=== PATIENT | male | born 1965 ===

== ENCOUNTER 2017-12-29 16:35 | Inpatient (IN) | payer SELFPAY ==
[2017-12-29] MEDS ORDERED: NORMODYNE IV ONE (16:55)
--- NOTE | 2017-12-29 16:57 | Emergency Department Report ---
HPI - General Time Seen by Provider: 12/29/17 16:54 - HPI HPI: 52-year-old male presents to the emergency department via EMS from home with altered mental status. His mother's bedside and says that he went out to [place] and when he drove back he was normal but shortly after coming home he passed out and has remained altered since. She says that he was not talking to herself or EMS. I am able to get him to open his eyes and he is able to say that it is 2018 but he otherwise keeps his eyes closed and is grunting. He does not have any past medical history but also apparently does not follow up with a primary care physician. He has not a smoker or alcohol drinker and mom denies any illicit drugs. ED Review of Systems ROS: Stated complaint: HIGH BLOOD SUGAR/NAUSEA/VOMITING Other details as noted in HPI Comment: Unobtainable due to pts medical conditions Physical Exam - Physical Exam Physical Exam: GENERAL: The patient is well-developed well-nourished. HENT: Normocephalic. Atraumatic. Patient has moist mucous membranes. EYES: Pupils equal reactive to light bilaterally. NECK: Supple. Trachea is midline. CHEST/LUNGS: Clear to auscultation. There is no respiratory distress noted. HEART/CARDIOVASCULAR: Regular. There is no tachycardia. There is no murmur. ABDOMEN: Abdomen is soft, nontender. Patient has normal bowel sounds. There is no abdominal distention. SKIN: Skin is warm and dry. NEURO: The patient is sleepy but does respond to some verbal and tactile stimuli. Once he is awake, he will follow some commands and is oriented to the date. However he immediately goes back to sleep if not continuously stimulated. GCS of 13. MUSCULOSKELETAL: There is no tenderness or deformity. There is no evidence of acute injury. ED Course - Reevaluation(s) Reevaluation #1: The patient was reevaluated multiple times. He has started to improvement in his mentation. He is still sleepy and ill-appearing but now has spontaneous eye opening. No facial asymmetry. No pronator drift. Patient is dealing with nausea and vomiting. Patient is asking for medication and something to drink but no apparent slurred speech. 12/30/17 01:02 ED Medical Decision Making - Lab Data Result diagrams: 12/29/17 17:14 12/29/17 17:14 - EKG Data -: EKG Interpreted by Me EKG shows normal: sinus rhythm, axis (left axis deviation), intervals, QRS complexes (Q waves to the inferior leads), ST-T waves Rate: normal - EKG Data Interpretation: other (sinus rhythm, left axis deviation, Q waves to the inferior leads) - Radiology Data Radiology results: report reviewed, image reviewed interpreted by me: Chest x-ray does not show any acute process. There are no pleural effusions, obvious pneumonia and there is no pneumothorax. EXAM: CT HEAD/BRAIN WO CON HISTORY: AMS TECHNIQUE: Noncontrast CT axial images of the brain. PRIORS: None. FINDINGS: No parenchymal mass, mass effect, hemorrhage, midline shift or hydrocephalus. No evidence of acute cortical infarct. No abnormal, extra-axial fluid or air collection. Mild, patchy low density in the periventricular and subcortical white matter is nonspecific, but may relate to chronic small vessel ischemic change. Osseous calvarium grossly intact. IMPRESSION: 1. No acute intracranial findings. 2. Chronic ischemic changes suspected. Transcribed By: [facility] Dictated By: RAVINDRA AREVALO MD Electronically Authenticated By: RAVINDRA AREVALO MD Signed Date/Time: 12/29/171806 PROCEDURE: CT ANGIO CHEST TECHNIQUE: Computerized tomographic angiography of the chest was performed after the IV injection of iodinated nonionic contrast including image processing. The image data was postprocessed using 2-dimensional multiplanar reformatted (MPR) and 3-dimensional (MIP and/or volume rendered) techniques. HISTORY: Syncope, coughing up red sputum / blood COMPARISON: No prior studies are available for comparison. FINDINGS: Heart and pericardium: Normal. Thoracic aorta: Normal. Pulmonary vasculature: Normal. Lymph nodes: No enlarged thoracic lymph nodes. Lungs: Normal. Pleural space: No effusion, thickening, or pneumothorax. Musculoskeletal structures: No significant abnormality. Upper abdominal structures: No significant abnormality. IMPRESSION: Unremarkable study Transcribed By: [facility] [place] Dictated By: EMMA WATKINS Electronically Authenticated By: EMMA WATKINS Signed Date/Time: 12/29/172024 - Medical Decision Making This patient came in mostly unresponsive after he had a syncopal episode at home , witnessed by his mother. When he came in to the emergency department he has a GCS of 12 or 13. There is no spontaneous eye opening and the patient is not following many commands but he is arousable and was able to give the year. A stat CT of the head was done that did not show any bleed, shift or mass or any other acute process. Upon one of his early reevaluation, the patient does show some improvement in his mentation. He began having spontaneous eye opening, asking for medication and something to drink. He was reevaluated neurologically and there was no slurred speech, facial asymmetry, pronator drift or any focal or lateralizing deficits seen. The patient also presented with very elevated blood pressure. He was given a dose of labetalol and hydralazine and his blood pressure came down to a more reasonable level. He had some low potassium so he was replaced with potassium chloride. The patient' s labs show a leukocytosis of about 24,000. This, combined with his hypothermia , was concerning for infection and the patient was treated empirically with Zosyn. The patient also has hyperglycemia with a blood sugar of 380. He was given some IV insulin. He has a lactic acidosis of 8 and then down to 6. A chest x-ray was done that does not show any pneumonia, pleural effusions, pneumothorax or focal consolidation. No source or focus of infection has been found. The patient will be admitted to the hospital for further evaluation and treatment and was accepted for admission by the hospitalist, Dr. Nolen. - Differential Diagnosis CVA, TIA, sepsis, pneumonia, MN, dysrhythmia Critical Care Time: No Critical care attestation.: If time is entered above; I have spent that time in minutes in the direct care of this critically ill patient, excluding procedure time. ED Disposition Clinical Impression: Hypokalemia, Hypertensive urgency, Hyperglycemia, Lactic acidosis Altered mental status Qualifiers: Altered mental status type: unspecified Qualified Code(s): R41.82 - Altered mental status, unspecified Leukocytosis Qualifiers: Leukocytosis type: unspecified Qualified Code(s): D72.829 - Elevated white blood cell count, unspecified Disposition: OP ADMIT IP TO THIS HOSP Is pt being admited?: Yes Condition: Fair Time of Disposition: 01:11
[2017-12-29] MEDS ORDERED: ZOFRAN ONE (16:59)
[2017-12-29 17:31] LABS: Mean Corpuscular HGB Conc 36 % (32-34); Mean Corpuscular Hemoglobin 32 pg (28-32); Mean Corpuscular Volume 87 fl (84-94); Platelet Count 354 K/mm3 (140-440); Red Blood Count 5.47 M/mm3 (3.65-5.03); Red Cell Distribution Width 12.8 % (13.2-15.2)
[2017-12-29 17:36] LABS: Hematocrit 47.6 % (35.5-45.6); Hemoglobin 17.2 gm/dl (11.8-15.2)
[2017-12-29 17:46] LABS: INR 0.99 (0.87-1.13)
[2017-12-29 17:47] LABS: Alanine Aminotransferase 16 units/L (7-56); Albumin 4.6 g/dL (3.9-5); BUN/Creatinine Ratio 16; Blood Urea Nitrogen 13 mg/dL (9-20); Calcium 10.1 mg/dL (8.4-10.2); Hemolysis Index 37
[2017-12-29] MEDS ORDERED: HumuLIN R IV ONE (17:54)
[2017-12-29] MEDS ORDERED: ZOFRAN IV ONE ×2 (18:05→20:20)
--- NOTE | 2017-12-29 18:08 | Cat Scan Report ---
FINAL REPORT EXAM: CT HEAD/BRAIN WO CON HISTORY: AMS TECHNIQUE: Noncontrast CT axial images of the brain. PRIORS: None. FINDINGS: No parenchymal mass, mass effect, hemorrhage, midline shift or hydrocephalus. No evidence of acute cortical infarct. No abnormal, extra-axial fluid or air collection. Mild, patchy low density in the periventricular and subcortical white matter is nonspecific, but may relate to chronic small vessel ischemic change. Osseous calvarium grossly intact. IMPRESSION: 1. No acute intracranial findings. 2. Chronic ischemic changes suspected.
[2017-12-29 18:17] LABS: Basophils % (Manual) 0 % (0.0-1.8); RBC Morphology Normal; Total Cells Counted 100
[2017-12-29] MEDS: KCL 10MEQ/100ML 10 MEQ/100 ML BAG IV SCH ×3 (18:29→21:18)
[2017-12-29] MEDS ORDERED: APRESOLINE IV ONE (18:56)
[2017-12-29 19:40] LABS: Bilirubin,Urine NEG (Negative); Blood,Urine NEG (Negative); Color,Urine Straw (Yellow); Mucus,Urine FEW /HPF; Protein,Urine <15 mg/dL mg/dL (Negative); Urobilinogen,Urine < 2.0 mg/dL (<2.0); WBC,Urine < 1.0 /HPF (0.0-6.0)
[2017-12-29 19:48] LABS: Amphetamine Screen,Urine PRESUMPTIVE NEGATIVE; Benzodiazepines Screen,Urine PRESUMPTIVE NEGATIVE; Cannabinoid Screen,Urine PRESUMPTIVE NEGATIVE; Cocaine Screen,Urine PRESUMPTIVE NEGATIVE; Methadone Screen,Urine PRESUMPTIVE NEGATIVE; Opiate Screen,Urine PRESUMPTIVE NEGATIVE
--- NOTE | 2017-12-29 20:26 | Cat Scan Report ---
FINAL REPORT PROCEDURE: CT ANGIO CHEST TECHNIQUE: Computerized tomographic angiography of the chest was performed after the IV injection of iodinated nonionic contrast including image processing. The image data was postprocessed using 2-dimensional multiplanar reformatted (MPR) and 3-dimensional (MIP and/or volume rendered) techniques. HISTORY: Syncope, coughing up red sputum / blood COMPARISON: No prior studies are available for comparison. FINDINGS: Heart and pericardium: Normal. Thoracic aorta: Normal. Pulmonary vasculature: Normal. Lymph nodes: No enlarged thoracic lymph nodes. Lungs: Normal. Pleural space: No effusion, thickening, or pneumothorax. Musculoskeletal structures: No significant abnormality. Upper abdominal structures: No significant abnormality. IMPRESSION: Unremarkable study
--- NOTE | 2017-12-29 20:27 | XRay Report ---
FINAL REPORT EXAM: XR CHEST 1V AP HISTORY: Altered Mental Status TECHNIQUE: Single, portable chest x-ray. PRIORS: None. FINDINGS: Cardiac and mediastinal silhouette within normal limits. Lungs are normally expanded. No significant vascular congestion. No focal consolidation or apparent pneumothorax. Bony thorax grossly unremarkable. IMPRESSION: 1. No acute findings.
[2017-12-29] MEDS ORDERED: ZOSYN/NS 4.5GM/100ML 4.5 GM/100 ML VIAL IV SCH (21:00)
[2017-12-29] MEDS ORDERED: SODIUM CHLORIDE FLUSH SYRINGE 10 ML IV PRN (23:00)
[2017-12-29] MEDS ORDERED: NACL 0.45% 1000 ML 1,000 ML IV SCH (23:00)
[2017-12-29] MEDS ORDERED: D50W (25GM) Syringe IV PRN (23:00)
--- NOTE | 2017-12-29 23:03 | History and Physical Report ---
History of Present Illness Date of examination: 12/29/17 History of present illness: 52-year-old male with no medical problems, who was not seen a physician in a long time comes emergency room with complaints of dizziness. States he fell today, there was no loss of consciousness Review of systems Constitutional: no weight loss, chills, fever Ears, eyes, nose, mouth and throat: no nasal congestion, no nasal discharge, no sinus pressure, no vision change, no red eye. Neck: No neck pain or rigidity. Cardiovascular: no chest pain, palpitations Respiratory: no cough, shortness of breath Gastrointestinal: no abdominal pain hematochezia Genitourinary : no frequency , no hematuria Musculoskeletal: no joint swelling or muscle ache Integumentary: no rash, no pruritis Neurological: no parathesias, no numbness, no focal weakness Endocrine: no cold or heat intolerance, no polyuria or polydipsia Hematologic/Lymphatic: no easy bruising, no easy bleeding, no gland swelling Allergic/Immunologic: no urticaria, no angioedema. PAST MEDICAL HISTORY: None PAST SURGICAL HISTORY: None SOCIAL HISTORY: No alcohol, no drugs, tobacco FAMILY HISTORY: Hypertension Medications and Allergies Allergies Allergy/AdvReac Type Severity Reaction Status Date / Time No Known Allergies Allergy Unverified 12/29/17 17:54 Active Meds: Active Medications Acetaminophen (Tylenol) 650 mg PO Q4H PRN PRN Reason: Pain MILD(1-3)/Fever >100.5/WEAVER Dextrose (D50w (25gm) Syringe) 50 ml IV PRN PRN PRN Reason: Hypoglycemia Enoxaparin Sodium (Lovenox) 30 mg SUB-Q QDAY MENDEL Hydralazine HCl (Apresoline) 5 mg IV Q6HR PRN PRN Reason: Hypertension Piperacillin Sod/Tazobactam Sod (Zosyn/Ns 4.5gm/100ml) 4.5 gm in 100 mls @ 200 mls/hr IV ONCE MENDEL Sodium Chloride (Nacl 0.45% 1000 Ml) 1,000 mls @ 125 mls/hr IV DIRECT MENDEL Insulin Human Lispro (Humalog) 0 unit SUB-Q ACHS MENDEL; Protocol Ondansetron HCl (Zofran) 4 mg IV Q4H PRN PRN Reason: Nausea And Vomiting Sodium Chloride (Sodium Chloride Flush Syringe 10 Ml) 10 ml IV BID MENDEL Sodium Chloride (Sodium Chloride Flush Syringe 10 Ml) 10 ml IV PRN PRN PRN Reason: LINE FLUSH Exam - Physical Exam Narrative exam: Gen. appearance: Patient lying in bed, no apparent distress HEENT: Normocephalic, atraumatic, pupils equally round and reactive to light, extraocular movement intact, and no sclericterus,. No JVD or thyromegaly or nodule,neck supple, no carotid bruit ,mucous membranes moist, no exudate or erythema Heart: S1, S2, regular rate and rhythm Lungs: Clear bilaterally, breathing comfortable Abdomen: Positive bowel sounds, non-tender, nondistended, no organomegaly Extremity:no edema cyanosis, clubbing Skin: no rash, dry, warm Neuro: Oriented 3, cranial nerves II-12 intact, speech is fluent, motor and sensory intact - Constitutional Vitals: Temp Pulse Resp BP Pulse Ox 97.9 F 85 26 H 171/91 96 12/29/17 22:15 12/29/17 22:30 12/29/17 22:30 12/29/17 22:30 12/29/17 22:30 Results - Labs CBC & Chem 7: 12/29/17 17:14 12/29/17 17:14 Labs: Abnormal lab results 12/29/17 12/29/17 12/29/17 Range/Units 17:14 17:14 17:14 WBC 23.9 H (4.5-11.0) K/mm3 RBC 5.47 H (3.65-5.03) M/mm3 Hgb 17.2 H (11.8-15.2) gm/dl Hct 47.6 H (35.5-45.6) % MCHC 36 H (32-34) % RDW 12.8 L (13.2-15.2) % Seg Neutrophils # Man 16.7 H (1.8-7.7) K/mm3 Lymphocytes # (Manual) 5.7 H (1.2-5.4) K/mm3 Monocytes # (Manual) 1.2 H (0.0-0.8) K/mm3 APTT 20.0 L (24.2-36.6) Sec. Sodium (137-145) mmol/L Potassium (3.6-5.0) mmol/L Chloride (98-107) mmol/L Carbon Dioxide (22-30) mmol/L Glucose (75-100) mg/dL Lactic Acid 8.50 H* (0.7-2.0) mmol/L Total Bilirubin (0.1-1.2) mg/dL Ammonia (25-60) umol/L Salicylates (2.8-20.0) mg/dL Acetaminophen (10.0-30.0) ug/mL 12/29/17 12/29/17 12/29/17 Range/Units 17:14 17:14 17:14 WBC (4.5-11.0) K/mm3 RBC (3.65-5.03) M/mm3 Hgb (11.8-15.2) gm/dl Hct (35.5-45.6) % MCHC (32-34) % RDW (13.2-15.2) % Seg Neutrophils # Man (1.8-7.7) K/mm3 Lymphocytes # (Manual) (1.2-5.4) K/mm3 Monocytes # (Manual) (0.0-0.8) K/mm3 APTT (24.2-36.6) Sec. Sodium 134 L (137-145) mmol/L Potassium 3.1 L (3.6-5.0) mmol/L Chloride 92.7 L (98-107) mmol/L Carbon Dioxide 14 L (22-30) mmol/L Glucose 384 H (75-100) mg/dL Lactic Acid (0.7-2.0) mmol/L Total Bilirubin 1.40 H (0.1-1.2) mg/dL Ammonia 21.0 L (25-60) umol/L Salicylates < 0.3 L (2.8-20.0) mg/dL Acetaminophen (10.0-30.0) ug/mL 12/29/17 12/29/17 Range/Units 17:14 18:01 WBC (4.5-11.0) K/mm3 RBC (3.65-5.03) M/mm3 Hgb (11.8-15.2) gm/dl Hct (35.5-45.6) % MCHC (32-34) % RDW (13.2-15.2) % Seg Neutrophils # Man (1.8-7.7) K/mm3 Lymphocytes # (Manual) (1.2-5.4) K/mm3 Monocytes # (Manual) (0.0-0.8) K/mm3 APTT (24.2-36.6) Sec. Sodium (137-145) mmol/L Potassium (3.6-5.0) mmol/L Chloride (98-107) mmol/L Carbon Dioxide (22-30) mmol/L Glucose (75-100) mg/dL Lactic Acid 6.10 H* (0.7-2.0) mmol/L Total Bilirubin (0.1-1.2) mg/dL Ammonia (25-60) umol/L Salicylates (2.8-20.0) mg/dL Acetaminophen < 5.0 L (10.0-30.0) ug/mL - Imaging and Cardiology Chest x-ray: image reviewed CT scan - chest: report reviewed CT Scan - head: report reviewed Assessment and Plan Assessment SIRS New-onset diabetes New-onset hypertension Plan Start IV fluid, and antibiotic check fingersticks initiate insulin sliding scale Check hemoglobin A1c, lipid panel Start IV hydralazine for blood pressure control DVT prophylaxis
[2017-12-30] MEDS: ZOFRAN IV PRN ×2 (01:02→10:26)
[2017-12-30 03:06] LABS: Chol/HDL Ratio 3.62 %
[2017-12-30] MEDS ORDERED: K-DUR PO ONE (03:21)
[2017-12-30] MEDS: TYLENOL PO PRN ×5 (03:28→22:41)
[2017-12-30] MEDS: ZOSYN/NS 4.5GM/100ML 4.5 GM/100 ML VIAL IV SCH ×2 (05:52→15:21)
[2017-12-30 06:37] LABS: Hemoglobin 16.7 gm/dl (11.8-15.2); Mean Corpuscular HGB Conc 33 % (32-34); Mean Corpuscular Hemoglobin 29 pg (28-32); Mean Corpuscular Volume 88 fl (84-94); Platelet Count 246 K/mm3 (140-440); Red Blood Count 5.68 M/mm3 (3.65-5.03); Red Cell Distribution Width 13.3 % (13.2-15.2)
[2017-12-30 06:48] LABS: BUN/Creatinine Ratio 12; Blood Urea Nitrogen 11 mg/dL (9-20); Hemolysis Index 6
[2017-12-30] MEDS: HumaLOG SUB-Q SCH ×4 (08:00→22:42)
--- NOTE | 2017-12-30 08:43 | Progress Note ---
Assessment and Plan Assessment and plan: 52-year-old male with no significant past medical history presented to the emergency department with complaints of passed out While in the ED BP was checked and he was in hypertensive urgency, new onset diabetes mellitus with hyperglycemia. DKA - Patient was admitted to the floor - I'm going to transfer him to ICU, and will restart managing according to DKA Protocol - In the mean time patient will be given 3 Litres of IV bolus and 15 units of novolog IV, check BMP Hypertensive urgency - Given labetalol and hydralazine - Blood pressure is controlled now and I'll start him on amlodipine Hyperlipidemia - Going to start him on Lipitor SIRS - on empiric IV zosyn DVT prophylaxis - On lovenox Disposition - Continue inpatient care The high probability of a clinically significant, sudden or life threatening deterioration of the [endocrine, cardiovascular] system(s) required my full and direct attention, intervention and personal management. The aggregate critical care time was [35] minutes. This time is in addition to time spent performing reported procedures but includes the following: [x] Data Review and interpretation [x] Patient assessment and monitoring of vital signs [x] Documentation [x] Medication orders and management History Interval history: Patient was seen and evaluated this morning, Patient was alert and oriented. Patient said he is thirsty. Hospitalist Physical - Physical exam Narrative exam: Not in cardiopulmonary distress. The patient appeared well nourished and normally developed. Vital signs as documented. Head exam is unremarkable. No scleral icterus . Neck is without jugular venous distension, thyromegaly, or carotid bruits. Lungs are clear to auscultation. Cardiac exam reveals regular rate and Rhythm. First and second heart sounds normal. No murmurs, rubs or gallops. Abdominal exam reveals normal bowel sounds, no masses, no organomegaly and no aortic enlargement. Extremities are nonedematous and both femoral and pedal pulses are normal. GLAZE SPRAYER: Alert and oriented 3. No focal weakness. - Constitutional Vitals: Temp Pulse Resp BP Pulse Ox 98.9 F 115 H 18 147/84 98 12/30/17 05:45 12/30/17 05:45 12/30/17 05:45 12/30/17 05:45 12/30/17 05:45 Results - Labs CBC & Chem 7: 12/30/17 06:01 12/30/17 12:35 Labs: Laboratory Last Values WBC 25.0 K/mm3 (4.5-11.0) H 12/30/17 06:01 RBC 5.68 M/mm3 (3.65-5.03) H 12/30/17 06:01 Hgb 16.7 gm/dl (11.8-15.2) H 12/30/17 06:01 Hct 50.0 % (35.5-45.6) H 12/30/17 06:01 MCV 88 fl (84-94) 12/30/17 06:01 MCH 29 pg (28-32) 12/30/17 06:01 MCHC 33 % (32-34) 12/30/17 06:01 RDW 13.3 % (13.2-15.2) 12/30/17 06:01 Plt Count 246 K/mm3 (140-440) 12/30/17 06:01 Lymph # Furniture Associate 12/29/17 17:14 Add Manual Diff Complete 12/29/17 17:14 Total Counted 100 12/29/17 17:14 Seg Neuts % (Manual) 70.0 % (40.0-70.0) 12/29/17 17:14 Band Neutrophils % 0 % 12/29/17 17:14 Lymphocytes % (Manual) 24.0 % (13.4-35.0) 12/29/17 17:14 Reactive Lymphs % (Man) 0 % 12/29/17 17:14 Monocytes % (Manual) 5.0 % (0.0-7.3) 12/29/17 17:14 Eosinophils % (Manual) 1.0 % (0.0-4.3) 12/29/17 17:14 Basophils % (Manual) 0 % (0.0-1.8) 12/29/17 17:14 Metamyelocytes % 0 % 12/29/17 17:14 Myelocytes % 0 % 12/29/17 17:14 Promyelocytes % 0 % 12/29/17 17:14 Blast Cells % 0 % 12/29/17 17:14 Nucleated RBC % Not Reportable 12/29/17 17:14 Seg Neutrophils # Man 16.7 K/mm3 (1.8-7.7) H 12/29/17 17:14 Band Neutrophils # 0.0 K/mm3 12/29/17 17:14 Lymphocytes # (Manual) 5.7 K/mm3 (1.2-5.4) H 12/29/17 17:14 Abs React Lymphs (Man) 0.0 K/mm3 12/29/17 17:14 Monocytes # (Manual) 1.2 K/mm3 (0.0-0.8) H 12/29/17 17:14 Eosinophils # (Manual) 0.2 K/mm3 (0.0-0.4) 12/29/17 17:14 Basophils # (Manual) 0.0 K/mm3 (0.0-0.1) 12/29/17 17:14 Metamyelocytes # 0.0 K/mm3 12/29/17 17:14 Myelocytes # 0.0 K/mm3 12/29/17 17:14 Promyelocytes # 0.0 K/mm3 12/29/17 17:14 Blast Cells # 0.0 K/mm3 12/29/17 17:14 WBC Morphology Not Reportable 12/29/17 17:14 Hypersegmented Neuts Not Reportable 12/29/17 17:14 Hyposegmented Neuts Not Reportable 12/29/17 17:14 Hypogranular Neuts Not Reportable 12/29/17 17:14 Smudge Cells Not Reportable 12/29/17 17:14 Toxic Granulation Not Reportable 12/29/17 17:14 Toxic Vacuolation Not Reportable 12/29/17 17:14 Dohle Bodies Not Reportable 12/29/17 17:14 Pelger-Huet Anomaly Not Reportable 12/29/17 17:14 Tavo Rods Not Reportable 12/29/17 17:14 Platelet Estimate Not Reportable 12/29/17 17:14 Clumped Platelets Not Reportable 12/29/17 17:14 Plt Clumps, EDTA Not Reportable 12/29/17 17:14 Large Platelets Not Reportable 12/29/17 17:14 Giant Platelets Not Reportable 12/29/17 17:14 Platelet Satelliting Not Reportable 12/29/17 17:14 Plt Morphology Comment Not Reportable 12/29/17 17:14 RBC Morphology Normal 12/29/17 17:14 Dimorphic RBCs Not Reportable 12/29/17 17:14 Polychromasia Not Reportable 12/29/17 17:14 Hypochromasia Not Reportable 12/29/17 17:14 Poikilocytosis Not Reportable 12/29/17 17:14 Anisocytosis Not Reportable 12/29/17 17:14 Microcytosis Not Reportable 12/29/17 17:14 Macrocytosis Not Reportable 12/29/17 17:14 Spherocytes Not Reportable 12/29/17 17:14 Pappenheimer Bodies Not Reportable 12/29/17 17:14 Sickle Cells Not Reportable 12/29/17 17:14 Target Cells Not Reportable 12/29/17 17:14 Tear Drop Cells Not Reportable 12/29/17 17:14 Ovalocytes Not Reportable 12/29/17 17:14 Helmet Cells Not Reportable 12/29/17 17:14 [place] Bodies Not Reportable 12/29/17 17:14 [place] Rings Not Reportable 12/29/17 17:14 Deandra Cells Not Reportable 12/29/17 17:14 Bite Cells Not Reportable 12/29/17 17:14 Crenated Cell Not Reportable 12/29/17 17:14 Elliptocytes Not Reportable 12/29/17 17:14 Acanthocytes (Spur) Not Reportable 12/29/17 17:14 Rouleaux Not Reportable 12/29/17 17:14 Hemoglobin C Crystals Not Reportable 12/29/17 17:14 Schistocytes Not Reportable 12/29/17 17:14 Malaria parasites Not Reportable 12/29/17 17:14 Adama Bodies Not Reportable 12/29/17 17:14 Hem Pathologist Commnt No 12/29/17 17:14 PT 13.6 Sec. (12.2-14.9) 12/29/17 17:14 INR 0.99 (0.87-1.13) 12/29/17 17:14 APTT 20.0 Sec. (24.2-36.6) L 12/29/17 17:14 Sodium 130 mmol/L (137-145) L 12/30/17 06:01 Potassium 4.9 mmol/L (3.6-5.0) D 12/30/17 06:01 Chloride 91.0 mmol/L (98-107) L 12/30/17 06:01 Carbon Dioxide 18 mmol/L (22-30) L 12/30/17 06:01 Anion Gap 26 mmol/L 12/30/17 06:01 BUN 11 mg/dL (9-20) 12/30/17 06:01 Creatinine 0.9 mg/dL (0.8-1.5) 12/30/17 06:01 Estimated GFR > 60 ml/min 12/30/17 06:01 BUN/Creatinine Ratio 12 % 12/30/17 06:01 Glucose 394 mg/dL (75-100) H 12/30/17 06:01 POC Glucose 317 (70-105) H 12/30/17 07:26 Hemoglobin A1c 12.6 % (4-6) H 12/29/17 Unknown Lactic Acid 6.10 mmol/L (0.7-2.0) H* 12/29/17 18:01 Calcium 9.0 mg/dL (8.4-10.2) 12/30/17 06:01 Total Bilirubin 1.40 mg/dL (0.1-1.2) H 12/29/17 17:14 AST 19 units/L (5-40) 12/29/17 17:14 ALT 16 units/L (7-56) 12/29/17 17:14 Alkaline Phosphatase 71 units/L (35-129) 12/29/17 17:14 Ammonia 21.0 umol/L (25-60) L 12/29/17 17:14 Troponin T < 0.010 ng/mL (0.00-0.029) 12/29/17 17:14 Total Protein 7.2 g/dL (6.3-8.2) 12/29/17 17:14 Albumin 4.6 g/dL (3.9-5) 12/29/17 17:14 Albumin/Globulin Ratio 1.8 % 12/29/17 17:14 Triglycerides 188 mg/dL (2-149) H 12/29/17 Unknown Cholesterol 254 mg/dL (50-199) H 12/29/17 Unknown LDL Cholesterol Direct 176 mg/dL (50-130) H 12/29/17 Unknown HDL Cholesterol 70 mg/dL (40-59) H 12/29/17 Unknown Cholesterol/HDL Ratio 3.62 % 12/29/17 Unknown Urine Color Straw (Yellow) 12/29/17 19:20 Urine Turbidity Clear (Clear) 12/29/17 19:20 Urine pH 5.0 (5.0-7.0) 12/29/17 19:20 Ur Specific Dorothy 1.022 (1.003-1.030) 12/29/17 19:20 Urine Protein <15 mg/dl mg/dL (Negative) 12/29/17 19:20 Urine Glucose (UA) >=500 mg/dL (Negative) 12/29/17 19:20 Urine Ketones 20 mg/dL (Negative) 12/29/17 19:20 Urine Blood Neg (Negative) 12/29/17 19:20 Urine Nitrite Neg (Negative) 12/29/17 19:20 Urine Bilirubin Neg (Negative) 12/29/17 19:20 Urine Urobilinogen < 2.0 mg/dL (<2.0) 12/29/17 19:20 Ur Leukocyte Esterase Neg (Negative) 12/29/17 19:20 Urine WBC (Auto) < 1.0 /HPF (0.0-6.0) 12/29/17 19:20 Urine RBC (Auto) 1.0 /HPF (0.0-6.0) 12/29/17 19:20 Urine Mucus Few /HPF 12/29/17 19:20 Salicylates < 0.3 mg/dL (2.8-20.0) L 12/29/17 17:14 Urine Opiates Screen Presumptive negative 12/29/17 19:20 Urine Methadone Screen Presumptive negative 12/29/17 19:20 Acetaminophen < 5.0 ug/mL (10.0-30.0) L 12/29/17 17:14 Ur Barbiturates Screen Presumptive negative 12/29/17 19:20 Ur Phencyclidine Scrn Presumptive negative 12/29/17 19:20 Ur Amphetamines Screen Presumptive negative 12/29/17 19:20 U Benzodiazepines Scrn Presumptive negative 12/29/17 19:20 Urine Cocaine Screen Presumptive negative 12/29/17 19:20 U Marijuana (THC) Screen Presumptive negative 12/29/17 19:20 Drugs of Abuse Note Disclamer 12/29/17 19:20 Plasma/Serum Alcohol < 0.01 % (0-0.07) 12/29/17 17:14 Blood Type AB POSITIVE 12/29/17 17:14 Antibody Screen Negative 12/29/17 17:14
[2017-12-30] MEDS ORDERED: D50W (25GM) Syringe IV PRN (09:00)
[2017-12-30] MEDS ORDERED: NACL 0.9% 1000 ML 1,000 ML IV ONE ×3 (09:00→11:49)
[2017-12-30] MEDS: LOVENOX SUB-Q SCH (09:26)
[2017-12-30 09:45] LABS: BUN/Creatinine Ratio 12; Blood Urea Nitrogen 11 mg/dL (9-20); Calcium 8.8 mg/dL (8.4-10.2); Hemolysis Index 11
--- NOTE | 2017-12-30 09:56 | Event Note ---
Date: 12/30/[address] [place] [address] Nina and recommend to give him 3L of bolus normal saline, 15 units of Humalog IV and , Chek BMP in 4 hours and will be transferred to CCU once bed is available.
[2017-12-30 09:58] LABS: Band Neutrophils # (Manual) 0.5 K/mm3; Basophils % (Manual) 0 % (0.0-1.8); Eosinophils % (Manual) 0 % (0.0-4.3); Platelet Estimate Consistent w Auto; RBC Morphology Normal; Total Cells Counted 100
[2017-12-30] MEDS ORDERED: NORVASC PO SCH (10:00)
[2017-12-30] MEDS ORDERED: LOVENOX SUB-Q SCH (10:00)
[2017-12-30] MEDS ORDERED: HumuLIN R IV ONE (10:00)
[2017-12-30] MEDS ORDERED: HumuLIN R 100 UNITS in NACL 0.9% 99 ML IV SCH (10:00)
[2017-12-30] MEDS: SODIUM CHLORIDE FLUSH SYRINGE 10 ML IV SCH (10:52)
[2017-12-30 11:03] LABS: BUN/Creatinine Ratio 13; Blood Urea Nitrogen 12 mg/dL (9-20); Hemolysis Index 6
[2017-12-30 12:53] LABS: BUN/Creatinine Ratio 14; Blood Urea Nitrogen 11 mg/dL (9-20); Calcium 8.4 mg/dL (8.4-10.2); Hemolysis Index 5
[2017-12-30] MEDS: NS 0.45/KCL 20MEQ 20 MEQ/1,000 ML BAG IV SCH (18:00)
[2017-12-30 18:37] LABS: BUN/Creatinine Ratio 15; Blood Urea Nitrogen 9 mg/dL (9-20); Hemolysis Index 14
[2017-12-31 01:15] LABS: BUN/Creatinine Ratio 20; Blood Urea Nitrogen 12 mg/dL (9-20); Hemolysis Index 5
[2017-12-31] MEDS: ZOSYN/NS 4.5GM/100ML 4.5 GM/100 ML VIAL IV SCH ×4 (01:32→21:35)
[2017-12-31] MEDS: TYLENOL PO PRN ×4 (01:33→20:46)
[2017-12-31] MEDS: SODIUM CHLORIDE FLUSH SYRINGE 10 ML IV SCH ×3 (05:25→21:41)
[2017-12-31 08:22] LABS: Basophils % (Auto) 0.3 % (0.0-1.8); Hematocrit 43.2 % (35.5-45.6); Hemoglobin 14.6 gm/dl (11.8-15.2); Lymphocytes # (Auto) 1.7 K/mm3 (1.2-5.4); Lymphocytes % (Auto) 10.8 % (13.4-35.0); Mean Corpuscular HGB Conc 34 % (32-34); Mean Corpuscular Hemoglobin 30 pg (28-32); Mean Corpuscular Volume 87 fl (84-94); Monocytes # (Auto) 0.9 K/mm3 (0.0-0.8); Monocytes % (Auto) 5.5 % (0.0-7.3); Platelet Count 202 K/mm3 (140-440); Red Blood Count 4.94 M/mm3 (3.65-5.03); Red Cell Distribution Width 13.1 % (13.2-15.2)
[2017-12-31 09:09] LABS: BUN/Creatinine Ratio 15; Blood Urea Nitrogen 9 mg/dL (9-20); Hemolysis Index 3
[2017-12-31] MEDS: LOVENOX SUB-Q SCH (10:28)
[2017-12-31] MEDS: HumaLOG SUB-Q SCH ×4 (10:29→23:00)
[2017-12-31] MEDS: NS 0.45/KCL 20MEQ 20 MEQ/1,000 ML BAG IV SCH ×2 (10:39→21:30)
[2017-12-31] MEDS: ZOFRAN IV PRN (20:47)
[2018-01-01] MEDS: PERCOCET 5/325 PO PRN ×4 (00:28→21:37)
[2018-01-01] MEDS: NS 0.45/KCL 20MEQ 20 MEQ/1,000 ML BAG IV SCH ×2 (06:17→16:34)
[2018-01-01] MEDS: ZOSYN/NS 4.5GM/100ML 4.5 GM/100 ML VIAL IV SCH ×3 (06:18→21:36)
[2018-01-01] MEDS: LOVENOX SUB-Q SCH (09:04)
[2018-01-01] MEDS: HumaLOG SUB-Q SCH ×4 (09:05→21:40)
[2018-01-01] MEDS: SODIUM CHLORIDE FLUSH SYRINGE 10 ML IV SCH (09:06)
[2018-01-01] MEDS: APRESOLINE IV PRN ×2 (09:24→21:37)
[2018-01-01] MEDS: ZOFRAN IV PRN (10:20)
--- NOTE | 2018-01-01 11:38 | Progress Note ---
Assessment and Plan Assessment and plan: 52-year-old male with no significant past medical history presented to the emergency department with complaints of passed out While in the ED BP was checked and he was in hypertensive urgency, new onset diabetes mellitus with hyperglycemia. DKA - Patient was admitted to the floor - resolved treated according to DKA protocol Diabetes mellitus with hyperglycemia, newly diagnosed - A1c is 12.5 - We will restart him on 70/30, 37 sodium, ADA diet, Accu-Chek Hypertensive urgency - Patient is on when necessary hydralazine and amlodipine - We'll monitor closely and adjust medications as needed Hyperlipidemia -Patient is on Lipitor SIRS - Leukocytosis, could be reactive - Blood culture negative - on empiric IV zosyn DVT prophylaxis - On lovenox Disposition - transfer to Med/Surg floor History Interval history: Patient was seen and evaluated this morning, Patient was alert and oriented. Patient said said he is feeling aspen. Hospitalist Physical - Physical exam Narrative exam: Not in cardiopulmonary distress. The patient appeared well nourished and normally developed. Vital signs as documented. Head exam is unremarkable. No scleral icterus . Neck is without jugular venous distension, thyromegaly, or carotid bruits. Lungs are clear to auscultation. Cardiac exam reveals regular rate and Rhythm. First and second heart sounds normal. No murmurs, rubs or gallops. Abdominal exam reveals normal bowel sounds, no masses, no organomegaly and no aortic enlargement. Extremities are nonedematous and both femoral and pedal pulses are normal. 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 No focal weakness. - Constitutional Vitals: Temp Pulse Resp BP Pulse Ox 98.3 F 82 18 191/97 95 01/01/18 05:47 01/01/18 09:24 01/01/18 05:47 01/01/18 09:24 01/01/18 08:30 Results - Labs CBC & Chem 7: 12/31/17 08:11 12/31/17 08:46 Labs: Laboratory Last Values WBC 15.5 K/mm3 (4.5-11.0) H 12/31/17 08:11 RBC 4.94 M/mm3 (3.65-5.03) 12/31/17 08:11 Hgb 14.6 gm/dl (11.8-15.2) 12/31/17 08:11 Hct 43.2 % (35.5-45.6) D 12/31/17 08:11 MCV 87 fl (84-94) 12/31/17 08:11 MCH 30 pg (28-32) 12/31/17 08:11 MCHC 34 % (32-34) 12/31/17 08:11 RDW 13.1 % (13.2-15.2) L 12/31/17 08:11 Plt Count 202 K/mm3 (140-440) 12/31/17 08:11 Lymph % (Auto) 10.8 % (13.4-35.0) L 12/31/17 08:11 [place] % (Auto) 5.5 % (0.0-7.3) 12/31/17 08:11 Eos % (Auto) 0.0 % (0.0-4.3) 12/31/17 08:11 Baso % (Auto) 0.3 % (0.0-1.8) 12/31/17 08:11 Lymph # 1.7 K/mm3 (1.2-5.4) 12/31/17 08:11 [place] # 0.9 K/mm3 (0.0-0.8) H 12/31/17 08:11 Eos # 0.0 K/mm3 (0.0-0.4) 12/31/17 08:11 Baso # 0.0 K/mm3 (0.0-0.1) 12/31/17 08:11 Add Manual Diff Complete 12/30/17 06:01 Total Counted 100 12/30/17 06:01 Seg Neutrophils % 83.4 % (40.0-70.0) H 12/31/17 08:11 Seg Neuts % (Manual) 92.0 % (40.0-70.0) H 12/30/17 06:01 Band Neutrophils % 2.0 % 12/30/17 06:01 Lymphocytes % (Manual) 3.0 % (13.4-35.0) L 12/30/17 06:01 Reactive Lymphs % (Man) 2.0 % 12/30/17 06:01 Monocytes % (Manual) 1.0 % (0.0-7.3) 12/30/17 06:01 Eosinophils % (Manual) 0 % (0.0-4.3) 12/30/17 06:01 Basophils % (Manual) 0 % (0.0-1.8) 12/30/17 06:01 Metamyelocytes % 0 % 12/30/17 06:01 Myelocytes % 0 % 12/30/17 06:01 Promyelocytes % 0 % 12/30/17 06:01 Blast Cells % 0 % 12/30/17 06:01 Nucleated RBC % Not Reportable 12/30/17 06:01 Seg Neutrophils # 12.9 K/mm3 (1.8-7.7) H 12/31/17 08:11 Seg Neutrophils # Man 23.0 K/mm3 (1.8-7.7) H 12/30/17 06:01 Band Neutrophils # 0.5 K/mm3 12/30/17 06:01 Lymphocytes # (Manual) 0.8 K/mm3 (1.2-5.4) L 12/30/17 06:01 Abs React Lymphs (Man) 0.5 K/mm3 12/30/17 06:01 Monocytes # (Manual) 0.3 K/mm3 (0.0-0.8) 12/30/17 06:01 Eosinophils # (Manual) 0.0 K/mm3 (0.0-0.4) 12/30/17 06:01 Basophils # (Manual) 0.0 K/mm3 (0.0-0.1) 12/30/17 06:01 Metamyelocytes # 0.0 K/mm3 12/30/17 06:01 Myelocytes # 0.0 K/mm3 12/30/17 06:01 Promyelocytes # 0.0 K/mm3 12/30/17 06:01 Blast Cells # 0.0 K/mm3 12/30/17 06:01 WBC Morphology Not Reportable 12/30/17 06:01 Hypersegmented Neuts Not Reportable 12/30/17 06:01 Hyposegmented Neuts Not Reportable 12/30/17 06:01 Hypogranular Neuts Not Reportable 12/30/17 06:01 Smudge Cells Not Reportable 12/30/17 06:01 Toxic Granulation Not Reportable 12/30/17 06:01 Toxic Vacuolation Not Reportable 12/30/17 06:01 Dohle Bodies Not Reportable 12/30/17 06:01 Pelger-Huet Anomaly Not Reportable 12/30/17 06:01 Tavo Rods Not Reportable 12/30/17 06:01 Platelet Estimate Consistent w auto 12/30/17 06:01 Clumped Platelets Not Reportable 12/30/17 06:01 Plt Clumps, EDTA Not Reportable 12/30/17 06:01 Large Platelets Not Reportable 12/30/17 06:01 Giant Platelets Not Reportable 12/30/17 06:01 Platelet Satelliting Not Reportable 12/30/17 06:01 Plt Morphology Comment Not Reportable 12/30/17 06:01 RBC Morphology Normal 12/30/17 06:01 Dimorphic RBCs Not Reportable 12/30/17 06:01 Polychromasia Not Reportable 12/30/17 06:01 Hypochromasia Not Reportable 12/30/17 06:01 Poikilocytosis Not Reportable 12/30/17 06:01 Anisocytosis Not Reportable 12/30/17 06:01 Microcytosis Not Reportable 12/30/17 06:01 Macrocytosis Not Reportable 12/30/17 06:01 Spherocytes Not Reportable 12/30/17 06:01 Pappenheimer Bodies Not Reportable 12/30/17 06:01 Sickle Cells Not Reportable 12/30/17 06:01 Target Cells Not Reportable 12/30/17 06:01 Tear Drop Cells Not Reportable 12/30/17 06:01 Ovalocytes Not Reportable 12/30/17 06:01 Helmet Cells Not Reportable 12/30/17 06:01 [place] Bodies Not Reportable 12/30/17 06:01 [place] Rings Not Reportable 12/30/17 06:01 [place] Cells Not Reportable 12/30/17 06:01 Bite Cells Not Reportable 12/30/17 06:01 Crenated Cell Not Reportable 12/30/17 06:01 Elliptocytes Not Reportable 12/30/17 06:01 Acanthocytes (Spur) Not Reportable 12/30/17 06:01 Rouleaux Not Reportable 12/30/17 06:01 Hemoglobin C Crystals Not Reportable 12/30/17 06:01 Schistocytes Not Reportable 12/30/17 06:01 Malaria parasites Not Reportable 12/30/17 06:01 [place] Bodies Not Reportable 12/30/17 06:01 Hem Pathologist Commnt No 12/30/17 06:01 PT 13.6 Sec. (12.2-14.9) 12/29/17 17:14 INR 0.99 (0.87-1.13) 12/29/17 17:14 APTT 20.0 Sec. (24.2-36.6) L 12/29/17 17:14 Sodium 134 mmol/L (137-145) L 12/31/17 08:46 Potassium 4.0 mmol/L (3.6-5.0) 12/31/17 08:46 Chloride 98.9 mmol/L (98-107) 12/31/17 08:46 Carbon Dioxide 19 mmol/L (22-30) L 12/31/17 08:46 Anion Gap 20 mmol/L 12/31/17 08:46 BUN 9 mg/dL (9-20) 12/31/17 08:46 Creatinine 0.6 mg/dL (0.8-1.5) L 12/31/17 08:46 Estimated GFR > 60 ml/min 12/31/17 08:46 BUN/Creatinine Ratio 15 % 12/31/17 08:46 Glucose 205 mg/dL (75-100) H 12/31/17 08:46 POC Glucose 210 (70-105) H 01/01/18 10:16 Hemoglobin A1c 12.6 % (4-6) H 12/29/17 Unknown Lactic Acid 1.00 mmol/L (0.7-2.0) 12/30/17 18:00 Calcium 8.0 mg/dL (8.4-10.2) L 12/31/17 08:46 Phosphorus 3.20 mg/dL (2.5-4.5) 12/30/17 09:18 Magnesium 2.00 mg/dL (1.7-2.3) 12/30/17 09:18 Total Bilirubin 1.40 mg/dL (0.1-1.2) H 12/29/17 17:14 AST 19 units/L (5-40) 12/29/17 17:14 ALT 16 units/L (7-56) 12/29/17 17:14 Alkaline Phosphatase 71 units/L (35-129) 12/29/17 17:14 Ammonia 21.0 umol/L (25-60) L 12/29/17 17:14 Troponin T < 0.010 ng/mL (0.00-0.029) 12/29/17 17:14 Total Protein 7.2 g/dL (6.3-8.2) 12/29/17 17:14 Albumin 4.6 g/dL (3.9-5) 12/29/17 17:14 Albumin/Globulin Ratio 1.8 % 12/29/17 17:14 Triglycerides 188 mg/dL (2-149) H 12/29/17 Unknown Cholesterol 254 mg/dL (50-199) H 12/29/17 Unknown LDL Cholesterol Direct 176 mg/dL (50-130) H 12/29/17 Unknown HDL Cholesterol 70 mg/dL (40-59) H 12/29/17 Unknown Cholesterol/HDL Ratio 3.62 % 12/29/17 Unknown Urine Color Straw (Yellow) 12/29/17 19:20 Urine Turbidity Clear (Clear) 12/29/17 19:20 Urine pH 5.0 (5.0-7.0) 12/29/17 19:20 Ur Specific [place] 1.022 (1.003-1.030) 12/29/17 19:20 Urine Protein <15 mg/dl mg/dL (Negative) 12/29/17 19:20 Urine Glucose (UA) >=500 mg/dL (Negative) 12/29/17 19:20 Urine Ketones 20 mg/dL (Negative) 12/29/17 19:20 Urine Blood Neg (Negative) 12/29/17 19:20 Urine Nitrite Neg (Negative) 12/29/17 19:20 Urine Bilirubin Neg (Negative) 12/29/17 19:20 Urine Urobilinogen < 2.0 mg/dL (<2.0) 12/29/17 19:20 Ur Leukocyte Esterase Neg (Negative) 12/29/17 19:20 Urine WBC (Auto) < 1.0 /HPF (0.0-6.0) 12/29/17 19:20 Urine RBC (Auto) 1.0 /HPF (0.0-6.0) 12/29/17 19:20 Urine Mucus Few /HPF 12/29/17 19:20 Salicylates < 0.3 mg/dL (2.8-20.0) L 12/29/17 17:14 Urine Opiates Screen Presumptive negative 12/29/17 19:20 Urine Methadone Screen Presumptive negative 12/29/17 19:20 Acetaminophen < 5.0 ug/mL (10.0-30.0) L 12/29/17 17:14 Ur Barbiturates Screen Presumptive negative 12/29/17 19:20 Ur Phencyclidine Scrn Presumptive negative 12/29/17 19:20 Ur Amphetamines Screen Presumptive negative 12/29/17 19:20 U Benzodiazepines Scrn Presumptive negative 12/29/17 19:20 Urine Cocaine Screen Presumptive negative 12/29/17 19:20 U Marijuana (THC) Screen Presumptive negative 12/29/17 19:20 Drugs of Abuse Note Disclamer 12/29/17 19:20 Plasma/Serum Alcohol < 0.01 % (0-0.07) 12/29/17 17:14 Blood Type AB POSITIVE 12/29/17 17:14 Antibody Screen Negative 12/29/17 17:14
--- NOTE | 2018-01-01 11:57 | Progress Note ---
Assessment and Plan Assessment and plan: 52-year-old male with no significant past medical history presented to the emergency department with complaints of passed out While in the ED BP was checked and he was in hypertensive urgency, new onset diabetes mellitus with hyperglycemia. DKA - Patient was admitted to the floor - resolved treated according to DKA protocol Diabetes mellitus with hyperglycemia, newly diagnosed - A1c is 12.5 - We will restart him on 70/30, 37 sodium, ADA diet, Accu-Chek Hypertensive urgency - Patient is on when necessary hydralazine and amlodipine - We'll monitor closely and adjust medications as needed Nausea and Vomiting - symptomatic treatment Hyperlipidemia -Patient is on Lipitor SIRS - Leukocytosis, could be reactive - Blood culture negative - on empiric IV zosyn DVT prophylaxis - On lovenox Disposition - continue inpatient care - Possibe DC tomorrow if symptoms improved. History Interval history: Patient was seen and evaluated this morning, Patient was alert and oriented. Patient has nausea and vomiting this morning. He is also complaining dizziness. Hospitalist Physical - Physical exam Narrative exam: Not in cardiopulmonary distress. The patient appeared well nourished and normally developed. Vital signs as documented. Head exam is unremarkable. No scleral icterus . Neck is without jugular venous distension, thyromegaly, or carotid bruits. Lungs are clear to auscultation. Cardiac exam reveals regular rate and Rhythm. First and second heart sounds normal. No murmurs, rubs or gallops. Abdominal exam reveals normal bowel sounds, no masses, no organomegaly and no aortic enlargement. Extremities are nonedematous and both femoral and pedal pulses are normal. 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 No focal weakness. - Constitutional Vitals: Temp Pulse Resp BP Pulse Ox 98.3 F 82 18 191/97 95 01/01/18 05:47 01/01/18 09:24 01/01/18 05:47 01/01/18 09:24 01/01/18 08:30 Results - Labs CBC & Chem 7: 12/31/17 08:11 12/31/17 08:46 Labs: Laboratory Last Values WBC 15.5 K/mm3 (4.5-11.0) H 12/31/17 08:11 RBC 4.94 M/mm3 (3.65-5.03) 12/31/17 08:11 Hgb 14.6 gm/dl (11.8-15.2) 12/31/17 08:11 Hct 43.2 % (35.5-45.6) D 12/31/17 08:11 MCV 87 fl (84-94) 12/31/17 08:11 MCH 30 pg (28-32) 12/31/17 08:11 MCHC 34 % (32-34) 12/31/17 08:11 RDW 13.1 % (13.2-15.2) L 12/31/17 08:11 Plt Count 202 K/mm3 (140-440) 12/31/17 08:11 Lymph % (Auto) 10.8 % (13.4-35.0) L 12/31/17 08:11 [place] % (Auto) 5.5 % (0.0-7.3) 12/31/17 08:11 Eos % (Auto) 0.0 % (0.0-4.3) 12/31/17 08:11 Baso % (Auto) 0.3 % (0.0-1.8) 12/31/17 08:11 Lymph # 1.7 K/mm3 (1.2-5.4) 12/31/17 08:11 [place] # 0.9 K/mm3 (0.0-0.8) H 12/31/17 08:11 Eos # 0.0 K/mm3 (0.0-0.4) 12/31/17 08:11 Baso # 0.0 K/mm3 (0.0-0.1) 12/31/17 08:11 Add Manual Diff Complete 12/30/17 06:01 Total Counted 100 12/30/17 06:01 Seg Neutrophils % 83.4 % (40.0-70.0) H 12/31/17 08:11 Seg Neuts % (Manual) 92.0 % (40.0-70.0) H 12/30/17 06:01 Band Neutrophils % 2.0 % 12/30/17 06:01 Lymphocytes % (Manual) 3.0 % (13.4-35.0) L 12/30/17 06:01 Reactive Lymphs % (Man) 2.0 % 12/30/17 06:01 Monocytes % (Manual) 1.0 % (0.0-7.3) 12/30/17 06:01 Eosinophils % (Manual) 0 % (0.0-4.3) 12/30/17 06:01 Basophils % (Manual) 0 % (0.0-1.8) 12/30/17 06:01 Metamyelocytes % 0 % 12/30/17 06:01 Myelocytes % 0 % 12/30/17 06:01 Promyelocytes % 0 % 12/30/17 06:01 Blast Cells % 0 % 12/30/17 06:01 Nucleated RBC % Not Reportable 12/30/17 06:01 Seg Neutrophils # 12.9 K/mm3 (1.8-7.7) H 12/31/17 08:11 Seg Neutrophils # Man 23.0 K/mm3 (1.8-7.7) H 12/30/17 06:01 Band Neutrophils # 0.5 K/mm3 12/30/17 06:01 Lymphocytes # (Manual) 0.8 K/mm3 (1.2-5.4) L 12/30/17 06:01 Abs React Lymphs (Man) 0.5 K/mm3 12/30/17 06:01 Monocytes # (Manual) 0.3 K/mm3 (0.0-0.8) 12/30/17 06:01 Eosinophils # (Manual) 0.0 K/mm3 (0.0-0.4) 12/30/17 06:01 Basophils # (Manual) 0.0 K/mm3 (0.0-0.1) 12/30/17 06:01 Metamyelocytes # 0.0 K/mm3 12/30/17 06:01 Myelocytes # 0.0 K/mm3 12/30/17 06:01 Promyelocytes # 0.0 K/mm3 12/30/17 06:01 Blast Cells # 0.0 K/mm3 12/30/17 06:01 WBC Morphology Not Reportable 12/30/17 06:01 Hypersegmented Neuts Not Reportable 12/30/17 06:01 Hyposegmented Neuts Not Reportable 12/30/17 06:01 Hypogranular Neuts Not Reportable 12/30/17 06:01 Smudge Cells Not Reportable 12/30/17 06:01 Toxic Granulation Not Reportable 12/30/17 06:01 Toxic Vacuolation Not Reportable 12/30/17 06:01 Dohle Bodies Not Reportable 12/30/17 06:01 Pelger-Huet Anomaly Not Reportable 12/30/17 06:01 Tavo Rods Not Reportable 12/30/17 06:01 Platelet Estimate Consistent w auto 12/30/17 06:01 Clumped Platelets Not Reportable 12/30/17 06:01 Plt Clumps, EDTA Not Reportable 12/30/17 06:01 Large Platelets Not Reportable 12/30/17 06:01 Giant Platelets Not Reportable 12/30/17 06:01 Platelet Satelliting Not Reportable 12/30/17 06:01 Plt Morphology Comment Not Reportable 12/30/17 06:01 RBC Morphology Normal 12/30/17 06:01 Dimorphic RBCs Not Reportable 12/30/17 06:01 Polychromasia Not Reportable 12/30/17 06:01 Hypochromasia Not Reportable 12/30/17 06:01 Poikilocytosis Not Reportable 12/30/17 06:01 Anisocytosis Not Reportable 12/30/17 06:01 Microcytosis Not Reportable 12/30/17 06:01 Macrocytosis Not Reportable 12/30/17 06:01 Spherocytes Not Reportable 12/30/17 06:01 Pappenheimer Bodies Not Reportable 12/30/17 06:01 Sickle Cells Not Reportable 12/30/17 06:01 Target Cells Not Reportable 12/30/17 06:01 Tear Drop Cells Not Reportable 12/30/17 06:01 Ovalocytes Not Reportable 12/30/17 06:01 Helmet Cells Not Reportable 12/30/17 06:01 [place] Bodies Not Reportable 12/30/17 06:01 [place] Rings Not Reportable 12/30/17 06:01 [place] Cells Not Reportable 12/30/17 06:01 Bite Cells Not Reportable 12/30/17 06:01 Crenated Cell Not Reportable 12/30/17 06:01 Elliptocytes Not Reportable 12/30/17 06:01 Acanthocytes (Spur) Not Reportable 12/30/17 06:01 Rouleaux Not Reportable 12/30/17 06:01 Hemoglobin C Crystals Not Reportable 12/30/17 06:01 Schistocytes Not Reportable 12/30/17 06:01 Malaria parasites Not Reportable 12/30/17 06:01 [place] Bodies Not Reportable 12/30/17 06:01 Hem Pathologist Commnt No 12/30/17 06:01 PT 13.6 Sec. (12.2-14.9) 12/29/17 17:14 INR 0.99 (0.87-1.13) 12/29/17 17:14 APTT 20.0 Sec. (24.2-36.6) L 12/29/17 17:14 Sodium 134 mmol/L (137-145) L 12/31/17 08:46 Potassium 4.0 mmol/L (3.6-5.0) 12/31/17 08:46 Chloride 98.9 mmol/L (98-107) 12/31/17 08:46 Carbon Dioxide 19 mmol/L (22-30) L 12/31/17 08:46 Anion Gap 20 mmol/L 12/31/17 08:46 BUN 9 mg/dL (9-20) 12/31/17 08:46 Creatinine 0.6 mg/dL (0.8-1.5) L 12/31/17 08:46 Estimated GFR > 60 ml/min 12/31/17 08:46 BUN/Creatinine Ratio 15 % 12/31/17 08:46 Glucose 205 mg/dL (75-100) H 12/31/17 08:46 POC Glucose 210 (70-105) H 01/01/18 10:16 Hemoglobin A1c 12.6 % (4-6) H 12/29/17 Unknown Lactic Acid 1.00 mmol/L (0.7-2.0) 12/30/17 18:00 Calcium 8.0 mg/dL (8.4-10.2) L 12/31/17 08:46 Phosphorus 3.20 mg/dL (2.5-4.5) 12/30/17 09:18 Magnesium 2.00 mg/dL (1.7-2.3) 12/30/17 09:18 Total Bilirubin 1.40 mg/dL (0.1-1.2) H 12/29/17 17:14 AST 19 units/L (5-40) 12/29/17 17:14 ALT 16 units/L (7-56) 12/29/17 17:14 Alkaline Phosphatase 71 units/L (35-129) 12/29/17 17:14 Ammonia 21.0 umol/L (25-60) L 12/29/17 17:14 Troponin T < 0.010 ng/mL (0.00-0.029) 12/29/17 17:14 Total Protein 7.2 g/dL (6.3-8.2) 12/29/17 17:14 Albumin 4.6 g/dL (3.9-5) 12/29/17 17:14 Albumin/Globulin Ratio 1.8 % 12/29/17 17:14 Triglycerides 188 mg/dL (2-149) H 12/29/17 Unknown Cholesterol 254 mg/dL (50-199) H 12/29/17 Unknown LDL Cholesterol Direct 176 mg/dL (50-130) H 12/29/17 Unknown HDL Cholesterol 70 mg/dL (40-59) H 12/29/17 Unknown Cholesterol/HDL Ratio 3.62 % 12/29/17 Unknown Urine Color Straw (Yellow) 12/29/17 19:20 Urine Turbidity Clear (Clear) 12/29/17 19:20 Urine pH 5.0 (5.0-7.0) 12/29/17 19:20 Ur Specific [place] 1.022 (1.003-1.030) 12/29/17 19:20 Urine Protein <15 mg/dl mg/dL (Negative) 12/29/17 19:20 Urine Glucose (UA) >=500 mg/dL (Negative) 12/29/17 19:20 Urine Ketones 20 mg/dL (Negative) 12/29/17 19:20 Urine Blood Neg (Negative) 12/29/17 19:20 Urine Nitrite Neg (Negative) 12/29/17 19:20 Urine Bilirubin Neg (Negative) 12/29/17 19:20 Urine Urobilinogen < 2.0 mg/dL (<2.0) 12/29/17 19:20 Ur Leukocyte Esterase Neg (Negative) 12/29/17 19:20 Urine WBC (Auto) < 1.0 /HPF (0.0-6.0) 12/29/17 19:20 Urine RBC (Auto) 1.0 /HPF (0.0-6.0) 12/29/17 19:20 Urine Mucus Few /HPF 12/29/17 19:20 Salicylates < 0.3 mg/dL (2.8-20.0) L 12/29/17 17:14 Urine Opiates Screen Presumptive negative 12/29/17 19:20 Urine Methadone Screen Presumptive negative 12/29/17 19:20 Acetaminophen < 5.0 ug/mL (10.0-30.0) L 12/29/17 17:14 Ur Barbiturates Screen Presumptive negative 12/29/17 19:20 Ur Phencyclidine Scrn Presumptive negative 12/29/17 19:20 Ur Amphetamines Screen Presumptive negative 12/29/17 19:20 U Benzodiazepines Scrn Presumptive negative 12/29/17 19:20 Urine Cocaine Screen Presumptive negative 12/29/17 19:20 U Marijuana (THC) Screen Presumptive negative 12/29/17 19:20 Drugs of Abuse Note Disclamer 12/29/17 19:20 Plasma/Serum Alcohol < 0.01 % (0-0.07) 12/29/17 17:14 Blood Type AB POSITIVE 12/29/17 17:14 Antibody Screen Negative 12/29/17 17:14
[2018-01-01] MEDS: NORVASC PO SCH (12:03)
[2018-01-01 15:11] LABS: Basophils % (Auto) 0.2 % (0.0-1.8); Lymphocytes # (Auto) 1.3 K/mm3 (1.2-5.4); Lymphocytes % (Auto) 8.4 % (13.4-35.0); Mean Corpuscular HGB Conc 36 % (32-34); Mean Corpuscular Hemoglobin 30 pg (28-32); Mean Corpuscular Volume 85 fl (84-94); Monocytes # (Auto) 0.8 K/mm3 (0.0-0.8); Monocytes % (Auto) 5.6 % (0.0-7.3); Platelet Count 224 K/mm3 (140-440); Red Blood Count 5.24 M/mm3 (3.65-5.03); Red Cell Distribution Width 12.6 % (13.2-15.2)
[2018-01-01 15:27] LABS: Hematocrit 44.3 % (35.5-45.6); Hemoglobin 15.9 gm/dl (11.8-15.2)
[2018-01-01 15:34] LABS: BUN/Creatinine Ratio 16; Blood Urea Nitrogen 8 mg/dL (9-20); Calcium 8.4 mg/dL (8.4-10.2); Hemolysis Index 1
[2018-01-01] MEDS: TYLENOL PO PRN ×2 (16:38→21:37)
[2018-01-02] MEDS: SODIUM CHLORIDE FLUSH SYRINGE 10 ML IV SCH ×3 (02:26→22:17)
[2018-01-02] MEDS: NS 0.45/KCL 20MEQ 20 MEQ/1,000 ML BAG IV SCH ×2 (05:21→22:03)
[2018-01-02] MEDS: ZOSYN/NS 4.5GM/100ML 4.5 GM/100 ML VIAL IV SCH ×3 (05:21→22:05)
[2018-01-02 06:12] LABS: Basophils % (Auto) 0.2 % (0.0-1.8); Eosinophils % (Auto) 0.2 % (0.0-4.3); Hematocrit 47.5 % (35.5-45.6); Hemoglobin 16.5 gm/dl (11.8-15.2); Lymphocytes # (Auto) 2.4 K/mm3 (1.2-5.4); Lymphocytes % (Auto) 18.6 % (13.4-35.0); Mean Corpuscular HGB Conc 35 % (32-34); Mean Corpuscular Hemoglobin 30 pg (28-32); Mean Corpuscular Volume 86 fl (84-94); Monocytes # (Auto) 0.8 K/mm3 (0.0-0.8); Monocytes % (Auto) 6.4 % (0.0-7.3); Platelet Count 262 K/mm3 (140-440); Red Blood Count 5.54 M/mm3 (3.65-5.03); Red Cell Distribution Width 12.8 % (13.2-15.2)
[2018-01-02 06:38] LABS: BUN/Creatinine Ratio 17; Blood Urea Nitrogen 10 mg/dL (9-20); Calcium 8.8 mg/dL (8.4-10.2); Hemolysis Index 9
[2018-01-02] MEDS: HumaLOG SUB-Q SCH ×4 (08:55→22:07)
[2018-01-02] MEDS: PERCOCET 5/325 PO PRN ×2 (09:01→22:05)
[2018-01-02] MEDS: TYLENOL PO PRN ×2 (09:02→22:05)
[2018-01-02] MEDS ORDERED: K-DUR PO ONE (09:46)
--- NOTE | 2018-01-02 10:04 | Discharge Summary ---
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 Hospitalization Condition: Stable Disposition: DC/[place]-06 HOME UNDER HOME [facility] Time spent for discharge: 35 mins Exam - Constitutional Vitals: Temp Pulse Resp BP Pulse Ox 97.7 F 94 H 20 148/86 97 01/02/18 05:33 01/02/18 05:33 01/02/18 05:33 01/02/18 05:33 01/02/18 05:33 Plan Activity: advance as tolerated, fall precautions Diet: low salt, diabetic Special Instructions: record daily BP diary, physical therapy Follow up with: PRIMARY CARE, [Primary Care Provider] - 3-5 Days TRENTON FIGUEROA MD [Staff Physician] - 7 Days Prescriptions: AtorvaSTATin [Lipitor] 20 mg PO QHS #30 tablet amLODIPine [Norvasc] 10 mg PO QDAY #30 tablet Insulin NPH/Regular [NovoLIN 70/30] 18 unit SUB-Q BIDDIAB 30 Days units Lisinopril [Prinivil] 10 mg PO DAILY #30 tablet Other Discharge Orders: Glucometer supplies[Amb] Location: None Selected Glucometer (Amb) Location: None Selected
[2018-01-02] MEDS: LOVENOX SUB-Q SCH (13:32)
[2018-01-02] MEDS: NORVASC PO SCH (13:32)
--- NOTE | 2018-01-02 14:53 | Progress Note ---
Assessment and Plan Assessment and plan: 52-year-old male with no significant past medical history presented to the emergency department with complaints of passed out While in the ED BP was checked and he was in hypertensive urgency, new onset diabetes mellitus with hyperglycemia. DKA - Patient was admitted to the floor - resolved treated according to DKA protocol Diabetes mellitus with hyperglycemia, newly diagnosed - A1c is 12.5 - We will restart him on 70/30, 37 sodium, ADA diet, Accu-Chek Hypertensive urgency - Patient is on when necessary hydralazine and amlodipine - We'll monitor closely and adjust medications as needed Nausea and Vomiting - symptomatic treatment Hyperlipidemia -Patient is on Lipitor SIRS - Leukocytosis, could be reactive - Blood culture negative - on empiric IV zosyn Ataxia -PT/OT pending, patient requiring maximum assist Syncope -CT negative -Per mother this is the first incident. Not sure how patient has the bruising in the legs. Discussed extensively with the mother. Patient did not attend college, she states bad influence, He has not had a job for some time and lives at home with the mother, mother also appears to be the primary career guidance technician for this patient. For his age and the report of no medical condition in the past this is concerning. -MRI HEAD -Neurology consult DVT prophylaxis - On lovenox Disposition - continue inpatient care - Possible DC tomorrow if symptoms improved. History Interval history: Patient seen and examined, Reports inability to ambulate today. Per nursing patient has not ambulated since admission. Hospitalist Physical - Physical exam Narrative exam: Not in cardiopulmonary distress. The patient appeared well nourished and normally developed. Vital signs as documented. Head exam is unremarkable. No scleral icterus . Neck is without jugular venous distension, thyromegaly, or carotid bruits. Lungs are clear to auscultation. Cardiac exam reveals regular rate and Rhythm. First and second heart sounds normal. No murmurs, rubs or gallops. Abdominal exam reveals normal bowel sounds, no masses, no organomegaly and no aortic enlargement. Extremities are nonedematous and both femoral and pedal pulses are normal. AIRCRAFT MAINTENANCE DIRECTOR: Alert and oriented 3. Slow to respond. SKIN: Multiple skin bruising in bilateral lower ext - Constitutional Vitals: Temp Pulse Resp BP Pulse Ox 97.7 F 94 H 20 148/86 97 01/02/18 05:33 01/02/18 05:33 01/02/18 05:33 01/02/18 05:33 01/02/18 05:33 Results - Labs CBC & Chem 7: 01/02/18 04:55 01/02/18 04:55 Labs: Laboratory Last Values WBC 12.9 K/mm3 (4.5-11.0) H 01/02/18 04:55 RBC 5.54 M/mm3 (3.65-5.03) H 01/02/18 04:55 Hgb 16.5 gm/dl (11.8-15.2) H 01/02/18 04:55 Hct 47.5 % (35.5-45.6) H 01/02/18 04:55 MCV 86 fl (84-94) 01/02/18 04:55 MCH 30 pg (28-32) 01/02/18 04:55 MCHC 35 % (32-34) H 01/02/18 04:55 RDW 12.8 % (13.2-15.2) L 01/02/18 04:55 Plt Count 262 K/mm3 (140-440) 01/02/18 04:55 Lymph % (Auto) 18.6 % (13.4-35.0) 01/02/18 04:55 [place] % (Auto) 6.4 % (0.0-7.3) 01/02/18 04:55 Eos % (Auto) 0.2 % (0.0-4.3) 01/02/18 04:55 Baso % (Auto) 0.2 % (0.0-1.8) 01/02/18 04:55 Lymph # 2.4 K/mm3 (1.2-5.4) 01/02/18 04:55 [place] # 0.8 K/mm3 (0.0-0.8) 01/02/18 04:55 Eos # 0.0 K/mm3 (0.0-0.4) 01/02/18 04:55 Baso # 0.0 K/mm3 (0.0-0.1) 01/02/18 04:55 Add Manual Diff Complete 12/30/17 06:01 Total Counted 100 12/30/17 06:01 Seg Neutrophils % 74.6 % (40.0-70.0) H 01/02/18 04:55 Seg Neuts % (Manual) 92.0 % (40.0-70.0) H 12/30/17 06:01 Band Neutrophils % 2.0 % 12/30/17 06:01 Lymphocytes % (Manual) 3.0 % (13.4-35.0) L 12/30/17 06:01 Reactive Lymphs % (Man) 2.0 % 12/30/17 06:01 Monocytes % (Manual) 1.0 % (0.0-7.3) 12/30/17 06:01 Eosinophils % (Manual) 0 % (0.0-4.3) 12/30/17 06:01 Basophils % (Manual) 0 % (0.0-1.8) 12/30/17 06:01 Metamyelocytes % 0 % 12/30/17 06:01 Myelocytes % 0 % 12/30/17 06:01 Promyelocytes % 0 % 12/30/17 06:01 Blast Cells % 0 % 12/30/17 06:01 Nucleated RBC % Not Reportable 12/30/17 06:01 Seg Neutrophils # 9.6 K/mm3 (1.8-7.7) H 01/02/18 04:55 Seg Neutrophils # Man 23.0 K/mm3 (1.8-7.7) H 12/30/17 06:01 Band Neutrophils # 0.5 K/mm3 12/30/17 06:01 Lymphocytes # (Manual) 0.8 K/mm3 (1.2-5.4) L 12/30/17 06:01 Abs React Lymphs (Man) 0.5 K/mm3 12/30/17 06:01 Monocytes # (Manual) 0.3 K/mm3 (0.0-0.8) 12/30/17 06:01 Eosinophils # (Manual) 0.0 K/mm3 (0.0-0.4) 12/30/17 06:01 Basophils # (Manual) 0.0 K/mm3 (0.0-0.1) 12/30/17 06:01 Metamyelocytes # 0.0 K/mm3 12/30/17 06:01 Myelocytes # 0.0 K/mm3 12/30/17 06:01 Promyelocytes # 0.0 K/mm3 12/30/17 06:01 Blast Cells # 0.0 K/mm3 12/30/17 06:01 WBC Morphology Not Reportable 12/30/17 06:01 Hypersegmented Neuts Not Reportable 12/30/17 06:01 Hyposegmented Neuts Not Reportable 12/30/17 06:01 Hypogranular Neuts Not Reportable 12/30/17 06:01 Smudge Cells Not Reportable 12/30/17 06:01 Toxic Granulation Not Reportable 12/30/17 06:01 Toxic Vacuolation Not Reportable 12/30/17 06:01 Dohle Bodies Not Reportable 12/30/17 06:01 Pelger-Huet Anomaly Not Reportable 12/30/17 06:01 Tavo Rods Not Reportable 12/30/17 06:01 Platelet Estimate Consistent w auto 12/30/17 06:01 Clumped Platelets Not Reportable 12/30/17 06:01 Plt Clumps, EDTA Not Reportable 12/30/17 06:01 Large Platelets Not Reportable 12/30/17 06:01 Giant Platelets Not Reportable 12/30/17 06:01 Platelet Satelliting Not Reportable 12/30/17 06:01 Plt Morphology Comment Not Reportable 12/30/17 06:01 RBC Morphology Normal 12/30/17 06:01 Dimorphic RBCs Not Reportable 12/30/17 06:01 Polychromasia Not Reportable 12/30/17 06:01 Hypochromasia Not Reportable 12/30/17 06:01 Poikilocytosis Not Reportable 12/30/17 06:01 Anisocytosis Not Reportable 12/30/17 06:01 Microcytosis Not Reportable 12/30/17 06:01 Macrocytosis Not Reportable 12/30/17 06:01 Spherocytes Not Reportable 12/30/17 06:01 Pappenheimer Bodies Not Reportable 12/30/17 06:01 Sickle Cells Not Reportable 12/30/17 06:01 Target Cells Not Reportable 12/30/17 06:01 Tear Drop Cells Not Reportable 12/30/17 06:01 Ovalocytes Not Reportable 12/30/17 06:01 Helmet Cells Not Reportable 12/30/17 06:01 [place] Bodies Not Reportable 12/30/17 06:01 [place] Rings Not Reportable 12/30/17 06:01 Deandra Cells Not Reportable 12/30/17 06:01 Bite Cells Not Reportable 12/30/17 06:01 Crenated Cell Not Reportable 12/30/17 06:01 Elliptocytes Not Reportable 12/30/17 06:01 Acanthocytes (Spur) Not Reportable 12/30/17 06:01 Rouleaux Not Reportable 12/30/17 06:01 Hemoglobin C Crystals Not Reportable 12/30/17 06:01 Schistocytes Not Reportable 12/30/17 06:01 Malaria parasites Not Reportable 12/30/17 06:01 Adama Bodies Not Reportable 12/30/17 06:01 Hem Pathologist Commnt No 12/30/17 06:01 PT 13.6 Sec. (12.2-14.9) 12/29/17 17:14 INR 0.99 (0.87-1.13) 12/29/17 17:14 APTT 20.0 Sec. (24.2-36.6) L 12/29/17 17:14 Sodium 135 mmol/L (137-145) L 01/02/18 04:55 Potassium 3.3 mmol/L (3.6-5.0) L 01/02/18 04:55 Chloride 97.0 mmol/L (98-107) L 01/02/18 04:55 Carbon Dioxide 23 mmol/L (22-30) 01/02/18 04:55 Anion Gap 18 mmol/L 01/02/18 04:55 BUN 10 mg/dL (9-20) 01/02/18 04:55 Creatinine 0.6 mg/dL (0.8-1.5) L 01/02/18 04:55 Estimated GFR > 60 ml/min 01/02/18 04:55 BUN/Creatinine Ratio 17 % 01/02/18 04:55 Glucose 139 mg/dL (75-100) H 01/02/18 04:55 POC Glucose 180 (70-105) H 01/02/18 12:53 Hemoglobin A1c 12.6 % (4-6) H 12/29/17 Unknown Lactic Acid 1.00 mmol/L (0.7-2.0) 12/30/17 18:00 Calcium 8.8 mg/dL (8.4-10.2) 01/02/18 04:55 Phosphorus 3.20 mg/dL (2.5-4.5) 12/30/17 09:18 Magnesium 2.00 mg/dL (1.7-2.3) 12/30/17 09:18 Total Bilirubin 1.40 mg/dL (0.1-1.2) H 12/29/17 17:14 AST 19 units/L (5-40) 12/29/17 17:14 ALT 16 units/L (7-56) 12/29/17 17:14 Alkaline Phosphatase 71 units/L (35-129) 12/29/17 17:14 Ammonia 21.0 umol/L (25-60) L 12/29/17 17:14 Troponin T < 0.010 ng/mL (0.00-0.029) 12/29/17 17:14 Total Protein 7.2 g/dL (6.3-8.2) 12/29/17 17:14 Albumin 4.6 g/dL (3.9-5) 12/29/17 17:14 Albumin/Globulin Ratio 1.8 % 12/29/17 17:14 Triglycerides 188 mg/dL (2-149) H 12/29/17 Unknown Cholesterol 254 mg/dL (50-199) H 12/29/17 Unknown LDL Cholesterol Direct 176 mg/dL (50-130) H 12/29/17 Unknown HDL Cholesterol 70 mg/dL (40-59) H 12/29/17 Unknown Cholesterol/HDL Ratio 3.62 % 12/29/17 Unknown Urine Color Straw (Yellow) 12/29/17 19:20 Urine Turbidity Clear (Clear) 12/29/17 19:20 Urine pH 5.0 (5.0-7.0) 12/29/17 19:20 Ur Specific [place] 1.022 (1.003-1.030) 12/29/17 19:20 Urine Protein <15 mg/dl mg/dL (Negative) 12/29/17 19:20 Urine Glucose (UA) >=500 mg/dL (Negative) 12/29/17 19:20 Urine Ketones 20 mg/dL (Negative) 12/29/17 19:20 Urine Blood Neg (Negative) 12/29/17 19:20 Urine Nitrite Neg (Negative) 12/29/17 19:20 Urine Bilirubin Neg (Negative) 12/29/17 19:20 Urine Urobilinogen < 2.0 mg/dL (<2.0) 12/29/17 19:20 Ur Leukocyte Esterase Neg (Negative) 12/29/17 19:20 Urine WBC (Auto) < 1.0 /HPF (0.0-6.0) 12/29/17 19:20 Urine RBC (Auto) 1.0 /HPF (0.0-6.0) 12/29/17 19:20 Urine Mucus Few /HPF 12/29/17 19:20 Salicylates < 0.3 mg/dL (2.8-20.0) L 12/29/17 17:14 Urine Opiates Screen Presumptive negative 12/29/17 19:20 Urine Methadone Screen Presumptive negative 12/29/17 19:20 Acetaminophen < 5.0 ug/mL (10.0-30.0) L 12/29/17 17:14 Ur Barbiturates Screen Presumptive negative 12/29/17 19:20 Ur Phencyclidine Scrn Presumptive negative 12/29/17 19:20 Ur Amphetamines Screen Presumptive negative 12/29/17 19:20 U Benzodiazepines Scrn Presumptive negative 12/29/17 19:20 Urine Cocaine Screen Presumptive negative 12/29/17 19:20 U Marijuana (THC) Screen Presumptive negative 12/29/17 19:20 Drugs of Abuse Note Disclamer 12/29/17 19:20 Plasma/Serum Alcohol < 0.01 % (0-0.07) 12/29/17 17:14 Blood Type AB POSITIVE 12/29/17 17:14 Antibody Screen Negative 12/29/17 17:14 - Imaging and Cardiology CT scan - chest: image reviewed (No acute pathology)
[2018-01-03 05:17] LABS: Hematocrit 50.5 % (35.5-45.6); Hemoglobin 17.3 gm/dl (11.8-15.2); Mean Corpuscular HGB Conc 34 % (32-34); Mean Corpuscular Hemoglobin 30 pg (28-32); Mean Corpuscular Volume 87 fl (84-94); Platelet Count 279 K/mm3 (140-440); Red Blood Count 5.83 M/mm3 (3.65-5.03)
[2018-01-03 05:37] LABS: BUN/Creatinine Ratio 18; Blood Urea Nitrogen 9 mg/dL (9-20); Calcium 8.8 mg/dL (8.4-10.2); Hemolysis Index 7
[2018-01-03] MEDS: ZOSYN/NS 4.5GM/100ML 4.5 GM/100 ML VIAL IV SCH ×3 (05:49→22:41)
[2018-01-03] MEDS: APRESOLINE IV PRN (06:47)
--- NOTE | 2018-01-03 08:23 | Progress Note ---
Subjective Date of service: 01/03/18 Interval history: patient seen and note is dictated evidence of better sodium at this point however still lethargic doubt hyperglycemic encephalopathy although could be seizure based therefore check EEG no family here to get hx from I will follow with you and imaging studies are ordered I have reviewed the chart Objective - Vital Sign Vital Signs - 12hr 01/02/18 01/02/18 01/03/18 22:00 23:17 06:06 Temperature 98.3 F 97.5 F L Pulse Rate 105 H 96 H Respiratory 16 18 20 Rate Blood Pressure 147/86 187/92 O2 Sat by Pulse 98 97 Oximetry 01/03/18 06:47 Temperature Pulse Rate 96 H Respiratory Rate Blood Pressure 187/92 O2 Sat by Pulse Oximetry - Laboratory Findings CBC and BMP: 01/03/18 04:55 01/03/18 04:55 Abnormal Lab Findings: Abnormal Labs 12/29/17 12/29/17 12/29/17 17:11 17:14 17:14 WBC 23.9 H RBC 5.47 H Hgb 17.2 H Hct 47.6 H MCHC 36 H RDW 12.8 L Lymph % (Auto) [place] # Seg Neutrophils % Seg Neuts % (Manual) Lymphocytes % (Manual) Seg Neutrophils # Seg Neutrophils # Man 16.7 H Lymphocytes # (Manual) 5.7 H Monocytes # (Manual) 1.2 H APTT Sodium Potassium Chloride Carbon Dioxide BUN Creatinine Glucose POC Glucose 312 H Hemoglobin A1c Lactic Acid 8.50 H* Calcium Total Bilirubin Ammonia Triglycerides Cholesterol LDL Cholesterol Direct HDL Cholesterol Salicylates Acetaminophen 12/29/17 12/29/17 12/29/17 17:14 17:14 17:14 WBC RBC Hgb Hct MCHC RDW Lymph % (Auto) [place] # Seg Neutrophils % Seg Neuts % (Manual) Lymphocytes % (Manual) Seg Neutrophils # Seg Neutrophils # Man Lymphocytes # (Manual) Monocytes # (Manual) APTT 20.0 L Sodium 134 L Potassium 3.1 L Chloride 92.7 L Carbon Dioxide 14 L BUN Creatinine Glucose 384 H POC Glucose Hemoglobin A1c Lactic Acid Calcium Total Bilirubin 1.40 H Ammonia 21.0 L Triglycerides Cholesterol LDL Cholesterol Direct HDL Cholesterol Salicylates Acetaminophen 12/29/17 12/29/17 12/29/17 17:14 17:14 18:01 WBC RBC Hgb Hct MCHC RDW Lymph % (Auto) [place] # Seg Neutrophils % Seg Neuts % (Manual) Lymphocytes % (Manual) Seg Neutrophils # Seg Neutrophils # Man Lymphocytes # (Manual) Monocytes # (Manual) APTT Sodium Potassium Chloride Carbon Dioxide BUN Creatinine Glucose POC Glucose Hemoglobin A1c Lactic Acid 6.10 H* Calcium Total Bilirubin Ammonia Triglycerides Cholesterol LDL Cholesterol Direct HDL Cholesterol Salicylates < 0.3 L Acetaminophen < 5.0 L 12/29/17 12/29/17 12/30/17 Unknown Unknown 06:01 WBC 25.0 H RBC 5.68 H Hgb 16.7 H Hct 50.0 H MCHC RDW Lymph % (Auto) [place] # Seg Neutrophils % Seg Neuts % (Manual) 92.0 H Lymphocytes % (Manual) 3.0 L Seg Neutrophils # Seg Neutrophils # Man 23.0 H Lymphocytes # (Manual) 0.8 L Monocytes # (Manual) APTT Sodium Potassium Chloride Carbon Dioxide BUN Creatinine Glucose POC Glucose Hemoglobin A1c 12.6 H Lactic Acid Calcium Total Bilirubin Ammonia Triglycerides 188 H Cholesterol 254 H LDL Cholesterol Direct 176 H HDL Cholesterol 70 H Salicylates Acetaminophen 12/30/17 12/30/17 12/30/17 06:01 07:26 08:38 WBC RBC Hgb Hct MCHC RDW Lymph % (Auto) [place] # Seg Neutrophils % Seg Neuts % (Manual) Lymphocytes % (Manual) Seg Neutrophils # Seg Neutrophils # Man Lymphocytes # (Manual) Monocytes # (Manual) APTT Sodium 130 L Potassium Chloride 91.0 L Carbon Dioxide 18 L BUN Creatinine Glucose 394 H POC Glucose 317 H Hemoglobin A1c Lactic Acid 2.70 H* Calcium Total Bilirubin Ammonia Triglycerides Cholesterol LDL Cholesterol Direct HDL Cholesterol Salicylates Acetaminophen 12/30/17 12/30/17 12/30/17 09:18 10:34 11:00 WBC RBC Hgb Hct MCHC RDW Lymph % (Auto) [place] # Seg Neutrophils % Seg Neuts % (Manual) Lymphocytes % (Manual) Seg Neutrophils # Seg Neutrophils # Man Lymphocytes # (Manual) Monocytes # (Manual) APTT Sodium 130 L 131 L Potassium 5.2 H 5.1 H Chloride 92.4 L 92.2 L Carbon Dioxide 18 L 18 L BUN Creatinine Glucose 336 H 327 H POC Glucose Hemoglobin A1c Lactic Acid 2.10 H* Calcium Total Bilirubin Ammonia Triglycerides Cholesterol LDL Cholesterol Direct HDL Cholesterol Salicylates Acetaminophen 12/30/17 12/30/17 12/30/17 11:00 12:35 16:45 WBC RBC Hgb Hct MCHC RDW Lymph % (Auto) [place] # Seg Neutrophils % Seg Neuts % (Manual) Lymphocytes % (Manual) Seg Neutrophils # Seg Neutrophils # Man Lymphocytes # (Manual) Monocytes # (Manual) APTT Sodium 134 L Potassium 3.5 L D Chloride Carbon Dioxide 17 L BUN Creatinine Glucose 228 H POC Glucose 226 H 178 H Hemoglobin A1c Lactic Acid Calcium Total Bilirubin Ammonia Triglycerides Cholesterol LDL Cholesterol Direct HDL Cholesterol Salicylates Acetaminophen 12/30/17 12/30/17 12/30/17 18:00 19:57 23:11 WBC RBC Hgb Hct MCHC RDW Lymph % (Auto) [place] # Seg Neutrophils % Seg Neuts % (Manual) Lymphocytes % (Manual) Seg Neutrophils # Seg Neutrophils # Man Lymphocytes # (Manual) Monocytes # (Manual) APTT Sodium 132 L Potassium Chloride Carbon Dioxide 18 L BUN Creatinine 0.6 L Glucose 186 H POC Glucose 160 H 280 H Hemoglobin A1c Lactic Acid Calcium 8.0 L Total Bilirubin Ammonia Triglycerides Cholesterol LDL Cholesterol Direct HDL Cholesterol Salicylates Acetaminophen 12/31/17 12/31/17 12/31/17 00:44 05:10 08:11 WBC 15.5 H RBC Hgb Hct MCHC RDW 13.1 L Lymph % (Auto) 10.8 L [place] # 0.9 H Seg Neutrophils % 83.4 H Seg Neuts % (Manual) Lymphocytes % (Manual) Seg Neutrophils # 12.9 H Seg Neutrophils # Man Lymphocytes # (Manual) Monocytes # (Manual) APTT Sodium 133 L Potassium Chloride Carbon Dioxide 20 L BUN Creatinine 0.6 L Glucose 247 H POC Glucose 186 H Hemoglobin A1c Lactic Acid Calcium 8.0 L Total Bilirubin Ammonia Triglycerides Cholesterol LDL Cholesterol Direct HDL Cholesterol Salicylates Acetaminophen 12/31/17 12/31/17 12/31/17 08:46 10:32 16:20 WBC RBC Hgb Hct MCHC RDW Lymph % (Auto) [place] # Seg Neutrophils % Seg Neuts % (Manual) Lymphocytes % (Manual) Seg Neutrophils # Seg Neutrophils # Man Lymphocytes # (Manual) Monocytes # (Manual) APTT Sodium 134 L Potassium Chloride Carbon Dioxide 19 L BUN Creatinine 0.6 L Glucose 205 H POC Glucose 186 H 273 H Hemoglobin A1c Lactic Acid Calcium 8.0 L Total Bilirubin Ammonia Triglycerides Cholesterol LDL Cholesterol Direct HDL Cholesterol Salicylates Acetaminophen 12/31/17 01/01/18 01/01/18 21:55 07:24 10:16 WBC RBC Hgb Hct MCHC RDW Lymph % (Auto) [place] # Seg Neutrophils % Seg Neuts % (Manual) Lymphocytes % (Manual) Seg Neutrophils # Seg Neutrophils # Man Lymphocytes # (Manual) Monocytes # (Manual) APTT Sodium Potassium Chloride Carbon Dioxide BUN Creatinine Glucose POC Glucose 207 H 172 H 210 H Hemoglobin A1c Lactic Acid Calcium Total Bilirubin Ammonia Triglycerides Cholesterol LDL Cholesterol Direct HDL Cholesterol Salicylates Acetaminophen 01/01/18 01/01/18 01/01/18 11:48 14:32 14:32 WBC 15.1 H RBC 5.24 H Hgb 15.9 H Hct MCHC 36 H RDW 12.6 L Lymph % (Auto) 8.4 L [place] # Seg Neutrophils % 85.8 H Seg Neuts % (Manual) Lymphocytes % (Manual) Seg Neutrophils # 12.9 H Seg Neutrophils # Man Lymphocytes # (Manual) Monocytes # (Manual) APTT Sodium 130 L Potassium 3.3 L Chloride 94.1 L Carbon Dioxide BUN 8 L Creatinine 0.5 L Glucose 184 H POC Glucose 207 H Hemoglobin A1c Lactic Acid Calcium Total Bilirubin Ammonia Triglycerides Cholesterol LDL Cholesterol Direct HDL Cholesterol Salicylates Acetaminophen 01/01/18 01/01/18 01/02/18 18:13 21:15 04:55 WBC 12.9 H RBC 5.54 H Hgb 16.5 H Hct 47.5 H MCHC 35 H RDW 12.8 L Lymph % (Auto) [place] # Seg Neutrophils % 74.6 H Seg Neuts % (Manual) Lymphocytes % (Manual) Seg Neutrophils # 9.6 H Seg Neutrophils # Man Lymphocytes # (Manual) Monocytes # (Manual) APTT Sodium Potassium Chloride Carbon Dioxide BUN Creatinine Glucose POC Glucose 181 H 158 H Hemoglobin A1c Lactic Acid Calcium Total Bilirubin Ammonia Triglycerides Cholesterol LDL Cholesterol Direct HDL Cholesterol Salicylates Acetaminophen 01/02/18 01/02/18 01/02/18 04:55 08:06 12:53 WBC RBC Hgb Hct MCHC RDW Lymph % (Auto) [place] # Seg Neutrophils % Seg Neuts % (Manual) Lymphocytes % (Manual) Seg Neutrophils # Seg Neutrophils # Man Lymphocytes # (Manual) Monocytes # (Manual) APTT Sodium 135 L Potassium 3.3 L Chloride 97.0 L Carbon Dioxide BUN Creatinine 0.6 L Glucose 139 H POC Glucose 121 H 180 H Hemoglobin A1c Lactic Acid Calcium Total Bilirubin Ammonia Triglycerides Cholesterol LDL Cholesterol Direct HDL Cholesterol Salicylates Acetaminophen 01/02/18 01/02/18 01/03/18 17:05 21:31 04:55 WBC 12.1 H RBC 5.83 H Hgb 17.3 H Hct 50.5 H MCHC RDW 13.0 L Lymph % (Auto) [place] # Seg Neutrophils % Seg Neuts % (Manual) Lymphocytes % (Manual) Seg Neutrophils # Seg Neutrophils # Man Lymphocytes # (Manual) Monocytes # (Manual) APTT Sodium Potassium Chloride Carbon Dioxide BUN Creatinine Glucose POC Glucose 211 H 185 H Hemoglobin A1c Lactic Acid Calcium Total Bilirubin Ammonia Triglycerides Cholesterol LDL Cholesterol Direct HDL Cholesterol Salicylates Acetaminophen 01/03/18 01/03/18 04:55 07:33 WBC RBC Hgb Hct MCHC RDW Lymph % (Auto) [place] # Seg Neutrophils % Seg Neuts % (Manual) Lymphocytes % (Manual) Seg Neutrophils # Seg Neutrophils # Man Lymphocytes # (Manual) Monocytes # (Manual) APTT Sodium 133 L Potassium Chloride 96.6 L Carbon Dioxide BUN Creatinine 0.5 L Glucose 211 H POC Glucose 197 H Hemoglobin A1c Lactic Acid Calcium Total Bilirubin Ammonia Triglycerides Cholesterol LDL Cholesterol Direct HDL Cholesterol Salicylates Acetaminophen
[2018-01-03] MEDS: HumaLOG SUB-Q SCH ×4 (09:29→22:42)
[2018-01-03] MEDS ORDERED: ATIVAN IV NR (09:56)
[2018-01-03 10:30] LABS: Basophils % (Auto) 0.3 % (0.0-1.8); Hematocrit 49.7 % (35.5-45.6); Hemoglobin 17.2 gm/dl (11.8-15.2); Lymphocytes # (Auto) 1.2 K/mm3 (1.2-5.4); Mean Corpuscular HGB Conc 35 % (32-34); Mean Corpuscular Hemoglobin 30 pg (28-32); Mean Corpuscular Volume 86 fl (84-94); Monocytes # (Auto) 0.6 K/mm3 (0.0-0.8); Platelet Count 296 K/mm3 (140-440); Red Blood Count 5.78 M/mm3 (3.65-5.03); Red Cell Distribution Width 12.7 % (13.2-15.2)
[2018-01-03 10:38] LABS: BUN/Creatinine Ratio 18; Blood Urea Nitrogen 11 mg/dL (9-20); Calcium 8.5 mg/dL (8.4-10.2); Hemolysis Index 6
[2018-01-03] MEDS: LOVENOX SUB-Q SCH (11:00)
[2018-01-03] MEDS: NORVASC PO SCH (11:04)
[2018-01-03] MEDS: SODIUM CHLORIDE FLUSH SYRINGE 10 ML IV SCH ×2 (11:06→22:42)
[2018-01-03] MEDS: NS 0.45/KCL 20MEQ 20 MEQ/1,000 ML BAG IV SCH (13:29)
[2018-01-03] MEDS: PERCOCET 5/325 PO PRN (13:34)
--- NOTE | 2018-01-03 15:33 | Progress Note ---
Assessment and Plan Assessment and plan: 52-year-old male with no significant past medical history presented to the emergency department with complaints of passed out While in the ED BP was checked and he was in hypertensive urgency, new onset diabetes mellitus with hyperglycemia. DKA - Patient was admitted to the floor - resolved treated according to DKA protocol Diabetes mellitus with hyperglycemia, newly diagnosed - A1c is 12.5 - We will restart him on 70/30, 37 sodium, ADA diet, Accu-Chek - Education on Hypertensive urgency - Patient is on when necessary hydralazine and amlodipine - We'll monitor closely and adjust medications as needed Nausea and Vomiting - symptomatic treatment Hyperlipidemia -Patient is on Lipitor SIRS - Leukocytosis, could be reactive - Blood culture negative - on empiric IV zosyn - Discuss with Neurology if any other etiology could be leading to this. Ataxia -PT/OT pending, patient requiring maximum assist Syncope -CT negative -Per mother this is the first incident. Not sure how patient has the bruising in the legs. Discussed extensively with the mother. Patient did not attend college, she states bad influence, He has not had a job for some time and lives at home with the mother, mother also appears to be the primary career representative for this patient. For his age and the report of no medical condition in the past this is concerning. -MRI HEAD PENDING - EEG ordered by Neurology -Neurology consult Possible Depression: OUTPATIENT PSYCHIATRY DVT prophylaxis - On lovenox Disposition - continue inpatient care - Possible DC IF OK WITH NEUROLOGY History Interval history: Patient seen and examined, more awake today, nursing staff states patient was able to return to bed from chair, but unknown what distance patient ambulated and if patient was holding on to something or not. Hospitalist Physical - Physical exam Narrative exam: Not in cardiopulmonary distress. The patient appeared well nourished and normally developed. Vital signs as documented. Head exam is unremarkable. No scleral icterus . Neck is without jugular venous distension, thyromegaly, or carotid bruits. Lungs are clear to auscultation. Cardiac exam reveals regular rate and Rhythm. First and second heart sounds normal. No murmurs, rubs or gallops. Abdominal exam reveals normal bowel sounds, no masses, no organomegaly and no aortic enlargement. Extremities are nonedematous and both femoral and pedal pulses are normal. 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 gait not assess SKIN: Multiple skin bruising in bilateral lower ext - Constitutional Vitals: Temp Pulse Resp BP Pulse Ox 98.1 F 107 H 20 140/79 95 01/03/18 11:12 01/03/18 11:12 01/03/18 11:12 01/03/18 11:12 01/03/18 11:12 Results - Labs CBC & Chem 7: 01/03/18 10:02 01/03/18 10:02 Labs: Laboratory Last Values WBC 12.9 K/mm3 (4.5-11.0) H 01/03/18 10:02 RBC 5.78 M/mm3 (3.65-5.03) H 01/03/18 10:02 Hgb 17.2 gm/dl (11.8-15.2) H 01/03/18 10:02 Hct 49.7 % (35.5-45.6) H 01/03/18 10:02 MCV 86 fl (84-94) 01/03/18 10:02 MCH 30 pg (28-32) 01/03/18 10:02 MCHC 35 % (32-34) H 01/03/18 10:02 RDW 12.7 % (13.2-15.2) L 01/03/18 10:02 Plt Count 296 K/mm3 (140-440) 01/03/18 10:02 Lymph % (Auto) 9.0 % (13.4-35.0) L 01/03/18 10:02 [place] % (Auto) 5.0 % (0.0-7.3) 01/03/18 10:02 Eos % (Auto) 0.0 % (0.0-4.3) 01/03/18 10:02 Baso % (Auto) 0.3 % (0.0-1.8) 01/03/18 10:02 Lymph # 1.2 K/mm3 (1.2-5.4) 01/03/18 10:02 [place] # 0.6 K/mm3 (0.0-0.8) 01/03/18 10:02 Eos # 0.0 K/mm3 (0.0-0.4) 01/03/18 10:02 Baso # 0.0 K/mm3 (0.0-0.1) 01/03/18 10:02 Add Manual Diff Complete 12/30/17 06:01 Total Counted 100 12/30/17 06:01 Seg Neutrophils % 85.7 % (40.0-70.0) H 01/03/18 10:02 Seg Neuts % (Manual) 92.0 % (40.0-70.0) H 12/30/17 06:01 Band Neutrophils % 2.0 % 12/30/17 06:01 Lymphocytes % (Manual) 3.0 % (13.4-35.0) L 12/30/17 06:01 Reactive Lymphs % (Man) 2.0 % 12/30/17 06:01 Monocytes % (Manual) 1.0 % (0.0-7.3) 12/30/17 06:01 Eosinophils % (Manual) 0 % (0.0-4.3) 12/30/17 06:01 Basophils % (Manual) 0 % (0.0-1.8) 12/30/17 06:01 Metamyelocytes % 0 % 12/30/17 06:01 Myelocytes % 0 % 12/30/17 06:01 Promyelocytes % 0 % 12/30/17 06:01 Blast Cells % 0 % 12/30/17 06:01 Nucleated RBC % Not Reportable 12/30/17 06:01 Seg Neutrophils # 11.1 K/mm3 (1.8-7.7) H 01/03/18 10:02 Seg Neutrophils # Man 23.0 K/mm3 (1.8-7.7) H 12/30/17 06:01 Band Neutrophils # 0.5 K/mm3 12/30/17 06:01 Lymphocytes # (Manual) 0.8 K/mm3 (1.2-5.4) L 12/30/17 06:01 Abs React Lymphs (Man) 0.5 K/mm3 12/30/17 06:01 Monocytes # (Manual) 0.3 K/mm3 (0.0-0.8) 12/30/17 06:01 Eosinophils # (Manual) 0.0 K/mm3 (0.0-0.4) 12/30/17 06:01 Basophils # (Manual) 0.0 K/mm3 (0.0-0.1) 12/30/17 06:01 Metamyelocytes # 0.0 K/mm3 12/30/17 06:01 Myelocytes # 0.0 K/mm3 12/30/17 06:01 Promyelocytes # 0.0 K/mm3 12/30/17 06:01 Blast Cells # 0.0 K/mm3 12/30/17 06:01 WBC Morphology Not Reportable 12/30/17 06:01 Hypersegmented Neuts Not Reportable 12/30/17 06:01 Hyposegmented Neuts Not Reportable 12/30/17 06:01 Hypogranular Neuts Not Reportable 12/30/17 06:01 Smudge Cells Not Reportable 12/30/17 06:01 Toxic Granulation Not Reportable 12/30/17 06:01 Toxic Vacuolation Not Reportable 12/30/17 06:01 Dohle Bodies Not Reportable 12/30/17 06:01 Pelger-Huet Anomaly Not Reportable 12/30/17 06:01 Tavo Rods Not Reportable 12/30/17 06:01 Platelet Estimate Consistent w auto 12/30/17 06:01 Clumped Platelets Not Reportable 12/30/17 06:01 Plt Clumps, EDTA Not Reportable 12/30/17 06:01 Large Platelets Not Reportable 12/30/17 06:01 Giant Platelets Not Reportable 12/30/17 06:01 Platelet Satelliting Not Reportable 12/30/17 06:01 Plt Morphology Comment Not Reportable 12/30/17 06:01 RBC Morphology Normal 12/30/17 06:01 Dimorphic RBCs Not Reportable 12/30/17 06:01 Polychromasia Not Reportable 12/30/17 06:01 Hypochromasia Not Reportable 12/30/17 06:01 Poikilocytosis Not Reportable 12/30/17 06:01 Anisocytosis Not Reportable 12/30/17 06:01 Microcytosis Not Reportable 12/30/17 06:01 Macrocytosis Not Reportable 12/30/17 06:01 Spherocytes Not Reportable 12/30/17 06:01 Pappenheimer Bodies Not Reportable 12/30/17 06:01 Sickle Cells Not Reportable 12/30/17 06:01 Target Cells Not Reportable 12/30/17 06:01 Tear Drop Cells Not Reportable 12/30/17 06:01 Ovalocytes Not Reportable 12/30/17 06:01 Helmet Cells Not Reportable 12/30/17 06:01 Conteh-[place] Bodies Not Reportable 12/30/17 06:01 [place] Rings Not Reportable 12/30/17 06:01 [place] Cells Not Reportable 12/30/17 06:01 Bite Cells Not Reportable 12/30/17 06:01 Crenated Cell Not Reportable 12/30/17 06:01 Elliptocytes Not Reportable 12/30/17 06:01 Acanthocytes (Spur) Not Reportable 12/30/17 06:01 Rouleaux Not Reportable 12/30/17 06:01 Hemoglobin C Crystals Not Reportable 12/30/17 06:01 Schistocytes Not Reportable 12/30/17 06:01 Malaria parasites Not Reportable 12/30/17 06:01 Adama Bodies Not Reportable 12/30/17 06:01 Hem Pathologist Commnt No 12/30/17 06:01 PT 13.6 Sec. (12.2-14.9) 12/29/17 17:14 INR 0.99 (0.87-1.13) 12/29/17 17:14 APTT 20.0 Sec. (24.2-36.6) L 12/29/17 17:14 Sodium 131 mmol/L (137-145) L 01/03/18 10:02 Potassium 3.5 mmol/L (3.6-5.0) L 01/03/18 10:02 Chloride 93.4 mmol/L (98-107) L 01/03/18 10:02 Carbon Dioxide 21 mmol/L (22-30) L 01/03/18 10:02 Anion Gap 20 mmol/L 01/03/18 10:02 BUN 11 mg/dL (9-20) 01/03/18 10:02 Creatinine 0.6 mg/dL (0.8-1.5) L 01/03/18 10:02 Estimated GFR > 60 ml/min 01/03/18 10:02 BUN/Creatinine Ratio 18 % 01/03/18 10:02 Glucose 274 mg/dL (75-100) H 01/03/18 10:02 POC Glucose 233 (70-105) H 01/03/18 11:11 Hemoglobin A1c 12.6 % (4-6) H 12/29/17 Unknown Lactic Acid 1.00 mmol/L (0.7-2.0) 12/30/17 18:00 Calcium 8.5 mg/dL (8.4-10.2) 01/03/18 10:02 Phosphorus 3.20 mg/dL (2.5-4.5) 12/30/17 09:18 Magnesium 2.00 mg/dL (1.7-2.3) 12/30/17 09:18 Total Bilirubin 1.40 mg/dL (0.1-1.2) H 12/29/17 17:14 AST 19 units/L (5-40) 12/29/17 17:14 ALT 16 units/L (7-56) 12/29/17 17:14 Alkaline Phosphatase 71 units/L (35-129) 12/29/17 17:14 Ammonia 21.0 umol/L (25-60) L 12/29/17 17:14 Troponin T < 0.010 ng/mL (0.00-0.029) 12/29/17 17:14 Total Protein 7.2 g/dL (6.3-8.2) 12/29/17 17:14 Albumin 4.6 g/dL (3.9-5) 12/29/17 17:14 Albumin/Globulin Ratio 1.8 % 12/29/17 17:14 Triglycerides 188 mg/dL (2-149) H 12/29/17 Unknown Cholesterol 254 mg/dL (50-199) H 12/29/17 Unknown LDL Cholesterol Direct 176 mg/dL (50-130) H 12/29/17 Unknown HDL Cholesterol 70 mg/dL (40-59) H 12/29/17 Unknown Cholesterol/HDL Ratio 3.62 % 12/29/17 Unknown Urine Color Straw (Yellow) 12/29/17 19:20 Urine Turbidity Clear (Clear) 12/29/17 19:20 Urine pH 5.0 (5.0-7.0) 12/29/17 19:20 Ur Specific [place] 1.022 (1.003-1.030) 12/29/17 19:20 Urine Protein <15 mg/dl mg/dL (Negative) 12/29/17 19:20 Urine Glucose (UA) >=500 mg/dL (Negative) 12/29/17 19:20 Urine Ketones 20 mg/dL (Negative) 12/29/17 19:20 Urine Blood Neg (Negative) 12/29/17 19:20 Urine Nitrite Neg (Negative) 12/29/17 19:20 Urine Bilirubin Neg (Negative) 12/29/17 19:20 Urine Urobilinogen < 2.0 mg/dL (<2.0) 12/29/17 19:20 Ur Leukocyte Esterase Neg (Negative) 12/29/17 19:20 Urine WBC (Auto) < 1.0 /HPF (0.0-6.0) 12/29/17 19:20 Urine RBC (Auto) 1.0 /HPF (0.0-6.0) 12/29/17 19:20 Urine Mucus Few /HPF 12/29/17 19:20 Salicylates < 0.3 mg/dL (2.8-20.0) L 12/29/17 17:14 Urine Opiates Screen Presumptive negative 12/29/17 19:20 Urine Methadone Screen Presumptive negative 12/29/17 19:20 Acetaminophen < 5.0 ug/mL (10.0-30.0) L 12/29/17 17:14 Ur Barbiturates Screen Presumptive negative 12/29/17 19:20 Ur Phencyclidine Scrn Presumptive negative 12/29/17 19:20 Ur Amphetamines Screen Presumptive negative 12/29/17 19:20 U Benzodiazepines Scrn Presumptive negative 12/29/17 19:20 Urine Cocaine Screen Presumptive negative 12/29/17 19:20 U Marijuana (THC) Screen Presumptive negative 12/29/17 19:20 Drugs of Abuse Note Disclamer 12/29/17 19:20 Plasma/Serum Alcohol < 0.01 % (0-0.07) 12/29/17 17:14 Blood Type AB POSITIVE 12/29/17 17:14 Antibody Screen Negative 12/29/17 17:14
[2018-01-04] MEDS: APRESOLINE IV PRN ×2 (00:31→12:48)
[2018-01-04] MEDS: ZOSYN/NS 4.5GM/100ML 4.5 GM/100 ML VIAL IV SCH ×2 (06:06→13:02)
[2018-01-04] MEDS: NS 0.45/KCL 20MEQ 20 MEQ/1,000 ML BAG IV SCH (06:07)
[2018-01-04] MEDS: HumaLOG SUB-Q SCH ×4 (07:30→22:20)
[2018-01-04 07:48] LABS: Hematocrit 47.8 % (35.5-45.6); Hemoglobin 16.8 gm/dl (11.8-15.2); Mean Corpuscular HGB Conc 35 % (32-34); Mean Corpuscular Hemoglobin 30 pg (28-32); Mean Corpuscular Volume 85 fl (84-94); Platelet Count 287 K/mm3 (140-440); Red Blood Count 5.61 M/mm3 (3.65-5.03); Red Cell Distribution Width 12.9 % (13.2-15.2)
[2018-01-04 08:00] LABS: BUN/Creatinine Ratio 30; Blood Urea Nitrogen 12 mg/dL (9-20); Calcium 8.6 mg/dL (8.4-10.2); Hemolysis Index 20
[2018-01-04] MEDS: NORVASC PO SCH (10:26)
[2018-01-04] MEDS: SODIUM CHLORIDE FLUSH SYRINGE 10 ML IV SCH ×2 (10:28→22:20)
--- NOTE | 2018-01-04 11:07 | Progress Note ---
Assessment and Plan Assessment and plan: 52-year-old male with no significant past medical history presented to the emergency department with complaints of passed out While in the ED BP was checked and he was in hypertensive urgency, new onset diabetes mellitus with hyperglycemia. SIRS - Leukocytosis, could be reactive - Blood culture negative - on empiric ceftriaxone and vancomycin for now Per ID - Await MRI and lumber puncture - Discuss with Neurology if any other etiology could be leading to this. 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 DKA - Patient was admitted to the floor - resolved treated according to DKA protocol Diabetes mellitus with hyperglycemia, newly diagnosed - A1c is 12.5 - We will restart him on 70/30, 37 sodium, ADA diet, Accu-Chek - Adjust insulin - Education on DM managemet - Low dose ACEI Hypertensive urgency - Patient is on when necessary hydralazine and amlodipine - We'll monitor closely and adjust medications as needed Nausea and Vomiting - symptomatic treatment Hyperlipidemia -Patient is on Lipitor Ataxia -PT/OT noted, patient requiring maximum assist Syncope -CT negative -Per mother this is the first incident. Not sure how patient has the bruising in the legs. Discussed extensively with the mother. Patient did not attend college, she states bad influence, He has not had a job for some time and lives at home with the mother, mother also appears to be the primary respiratory care program director for this patient. For his age and the report of no medical condition in the past this is concerning. -MRI HEAD PENDING - EEG ordered by Neurology -Neurology consult Possible Depression: OUTPATIENT PSYCHIATRY DVT prophylaxis - On lovenox Disposition - continue inpatient care - pending MRI, Lumber pucture result. 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 Hospitalist Physical - Physical exam Narrative exam: Not in cardiopulmonary distress. The patient appeared well nourished and normally developed. Vital signs as documented. Head exam is unremarkable. No scleral icterus . Neck is without jugular venous distension, thyromegaly, or carotid bruits. Lungs are clear to auscultation. Cardiac exam reveals regular rate and Rhythm. First and second heart sounds normal. No murmurs, rubs or gallops. Abdominal exam reveals normal bowel sounds, no masses, no organomegaly and no aortic enlargement. Extremities are nonedematous and both femoral and pedal pulses are normal. 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 gait not assess SKIN: Multiple skin bruising in bilateral lower ext - Constitutional Vitals: Temp Pulse Resp BP Pulse Ox 98.6 F 118 H 20 146/91 95 01/04/18 05:58 01/04/18 10:26 01/04/18 05:58 01/04/18 10:26 01/04/18 05:58 Results - Labs CBC & Chem 7: 01/05/18 04:14 01/05/18 04:14 Labs: Laboratory Last Values WBC 14.2 K/mm3 (4.5-11.0) H 01/04/18 07:29 RBC 5.61 M/mm3 (3.65-5.03) H 01/04/18 07:29 Hgb 16.8 gm/dl (11.8-15.2) H 01/04/18 07:29 Hct 47.8 % (35.5-45.6) H 01/04/18 07:29 MCV 85 fl (84-94) 01/04/18 07:29 MCH 30 pg (28-32) 01/04/18 07:29 MCHC 35 % (32-34) H 01/04/18 07:29 RDW 12.9 % (13.2-15.2) L 01/04/18 07:29 Plt Count 287 K/mm3 (140-440) 01/04/18 07:29 Lymph % (Auto) 9.0 % (13.4-35.0) L 01/03/18 10:02 [place] % (Auto) 5.0 % (0.0-7.3) 01/03/18 10:02 Eos % (Auto) 0.0 % (0.0-4.3) 01/03/18 10:02 Baso % (Auto) 0.3 % (0.0-1.8) 01/03/18 10:02 Lymph # 1.2 K/mm3 (1.2-5.4) 01/03/18 10:02 [place] # 0.6 K/mm3 (0.0-0.8) 01/03/18 10:02 Eos # 0.0 K/mm3 (0.0-0.4) 01/03/18 10:02 Baso # 0.0 K/mm3 (0.0-0.1) 01/03/18 10:02 Add Manual Diff Complete 12/30/17 06:01 Total Counted 100 12/30/17 06:01 Seg Neutrophils % 85.7 % (40.0-70.0) H 01/03/18 10:02 Seg Neuts % (Manual) 92.0 % (40.0-70.0) H 12/30/17 06:01 Band Neutrophils % 2.0 % 12/30/17 06:01 Lymphocytes % (Manual) 3.0 % (13.4-35.0) L 12/30/17 06:01 Reactive Lymphs % (Man) 2.0 % 12/30/17 06:01 Monocytes % (Manual) 1.0 % (0.0-7.3) 12/30/17 06:01 Eosinophils % (Manual) 0 % (0.0-4.3) 12/30/17 06:01 Basophils % (Manual) 0 % (0.0-1.8) 12/30/17 06:01 Metamyelocytes % 0 % 12/30/17 06:01 Myelocytes % 0 % 12/30/17 06:01 Promyelocytes % 0 % 12/30/17 06:01 Blast Cells % 0 % 12/30/17 06:01 Nucleated RBC % Not Reportable 12/30/17 06:01 Seg Neutrophils # 11.1 K/mm3 (1.8-7.7) H 01/03/18 10:02 Seg Neutrophils # Man 23.0 K/mm3 (1.8-7.7) H 12/30/17 06:01 Band Neutrophils # 0.5 K/mm3 12/30/17 06:01 Lymphocytes # (Manual) 0.8 K/mm3 (1.2-5.4) L 12/30/17 06:01 Abs React Lymphs (Man) 0.5 K/mm3 12/30/17 06:01 Monocytes # (Manual) 0.3 K/mm3 (0.0-0.8) 12/30/17 06:01 Eosinophils # (Manual) 0.0 K/mm3 (0.0-0.4) 12/30/17 06:01 Basophils # (Manual) 0.0 K/mm3 (0.0-0.1) 12/30/17 06:01 Metamyelocytes # 0.0 K/mm3 12/30/17 06:01 Myelocytes # 0.0 K/mm3 12/30/17 06:01 Promyelocytes # 0.0 K/mm3 12/30/17 06:01 Blast Cells # 0.0 K/mm3 12/30/17 06:01 WBC Morphology Not Reportable 12/30/17 06:01 Hypersegmented Neuts Not Reportable 12/30/17 06:01 Hyposegmented Neuts Not Reportable 12/30/17 06:01 Hypogranular Neuts Not Reportable 12/30/17 06:01 Smudge Cells Not Reportable 12/30/17 06:01 Toxic Granulation Not Reportable 12/30/17 06:01 Toxic Vacuolation Not Reportable 12/30/17 06:01 Dohle Bodies Not Reportable 12/30/17 06:01 Pelger-Huet Anomaly Not Reportable 12/30/17 06:01 Tavo Rods Not Reportable 12/30/17 06:01 Platelet Estimate Consistent w auto 12/30/17 06:01 Clumped Platelets Not Reportable 12/30/17 06:01 Plt Clumps, EDTA Not Reportable 12/30/17 06:01 Large Platelets Not Reportable 12/30/17 06:01 Giant Platelets Not Reportable 12/30/17 06:01 Platelet Satelliting Not Reportable 12/30/17 06:01 Plt Morphology Comment Not Reportable 12/30/17 06:01 RBC Morphology Normal 12/30/17 06:01 Dimorphic RBCs Not Reportable 12/30/17 06:01 Polychromasia Not Reportable 12/30/17 06:01 Hypochromasia Not Reportable 12/30/17 06:01 Poikilocytosis Not Reportable 12/30/17 06:01 Anisocytosis Not Reportable 12/30/17 06:01 Microcytosis Not Reportable 12/30/17 06:01 Macrocytosis Not Reportable 12/30/17 06:01 Spherocytes Not Reportable 12/30/17 06:01 Pappenheimer Bodies Not Reportable 12/30/17 06:01 Sickle Cells Not Reportable 12/30/17 06:01 Target Cells Not Reportable 12/30/17 06:01 Tear Drop Cells Not Reportable 12/30/17 06:01 Ovalocytes Not Reportable 12/30/17 06:01 Helmet Cells Not Reportable 12/30/17 06:01 Con[place] Bodies Not Reportable 12/30/17 06:01 [place] Rings Not Reportable 12/30/17 06:01 [place] Cells Not Reportable 12/30/17 06:01 Bite Cells Not Reportable 12/30/17 06:01 Crenated Cell Not Reportable 12/30/17 06:01 Elliptocytes Not Reportable 12/30/17 06:01 Acanthocytes (Spur) Not Reportable 12/30/17 06:01 Rouleaux Not Reportable 12/30/17 06:01 Hemoglobin C Crystals Not Reportable 12/30/17 06:01 Schistocytes Not Reportable 12/30/17 06:01 Malaria parasites Not Reportable 12/30/17 06:01 [place]ama Bodies Not Reportable 12/30/17 06:01 Hem Pathologist Commnt No 12/30/17 06:01 PT 13.6 Sec. (12.2-14.9) 12/29/17 17:14 INR 0.99 (0.87-1.13) 12/29/17 17:14 APTT 20.0 Sec. (24.2-36.6) L 12/29/17 17:14 Sodium 129 mmol/L (137-145) L 01/04/18 07:29 Potassium 3.7 mmol/L (3.6-5.0) 01/04/18 07:29 Chloride 92.8 mmol/L (98-107) L 01/04/18 07:29 Carbon Dioxide 19 mmol/L (22-30) L 01/04/18 07:29 Anion Gap 21 mmol/L 01/04/18 07:29 BUN 12 mg/dL (9-20) 01/04/18 07:29 Creatinine 0.4 mg/dL (0.8-1.5) L 01/04/18 07:29 Estimated GFR > 60 ml/min 01/04/18 07:29 BUN/Creatinine Ratio 30 % 01/04/18 07:29 Glucose 197 mg/dL (75-100) H 01/04/18 07:29 POC Glucose 166 (70-105) H 01/04/18 07:40 Hemoglobin A1c 12.6 % (4-6) H 12/29/17 Unknown Lactic Acid 1.00 mmol/L (0.7-2.0) 12/30/17 18:00 Calcium 8.6 mg/dL (8.4-10.2) 01/04/18 07:29 Phosphorus 3.20 mg/dL (2.5-4.5) 12/30/17 09:18 Magnesium 2.00 mg/dL (1.7-2.3) 12/30/17 09:18 Total Bilirubin 1.40 mg/dL (0.1-1.2) H 12/29/17 17:14 AST 19 units/L (5-40) 12/29/17 17:14 ALT 16 units/L (7-56) 12/29/17 17:14 Alkaline Phosphatase 71 units/L (35-129) 12/29/17 17:14 Ammonia 21.0 umol/L (25-60) L 12/29/17 17:14 Troponin T < 0.010 ng/mL (0.00-0.029) 12/29/17 17:14 Total Protein 7.2 g/dL (6.3-8.2) 12/29/17 17:14 Albumin 4.6 g/dL (3.9-5) 12/29/17 17:14 Albumin/Globulin Ratio 1.8 % 12/29/17 17:14 Triglycerides 188 mg/dL (2-149) H 12/29/17 Unknown Cholesterol 254 mg/dL (50-199) H 12/29/17 Unknown LDL Cholesterol Direct 176 mg/dL (50-130) H 12/29/17 Unknown HDL Cholesterol 70 mg/dL (40-59) H 12/29/17 Unknown Cholesterol/HDL Ratio 3.62 % 12/29/17 Unknown Urine Color Straw (Yellow) 12/29/17 19:20 Urine Turbidity Clear (Clear) 12/29/17 19:20 Urine pH 5.0 (5.0-7.0) 12/29/17 19:20 Ur Specific [place] 1.022 (1.003-1.030) 12/29/17 19:20 Urine Protein <15 mg/dl mg/dL (Negative) 12/29/17 19:20 Urine Glucose (UA) >=500 mg/dL (Negative) 12/29/17 19:20 Urine Ketones 20 mg/dL (Negative) 12/29/17 19:20 Urine Blood Neg (Negative) 12/29/17 19:20 Urine Nitrite Neg (Negative) 12/29/17 19:20 Urine Bilirubin Neg (Negative) 12/29/17 19:20 Urine Urobilinogen < 2.0 mg/dL (<2.0) 12/29/17 19:20 Ur Leukocyte Esterase Neg (Negative) 12/29/17 19:20 Urine WBC (Auto) < 1.0 /HPF (0.0-6.0) 12/29/17 19:20 Urine RBC (Auto) 1.0 /HPF (0.0-6.0) 12/29/17 19:20 Urine Mucus Few /HPF 12/29/17 19:20 Salicylates < 0.3 mg/dL (2.8-20.0) L 12/29/17 17:14 Urine Opiates Screen Presumptive negative 12/29/17 19:20 Urine Methadone Screen Presumptive negative 12/29/17 19:20 Acetaminophen < 5.0 ug/mL (10.0-30.0) L 12/29/17 17:14 Ur Barbiturates Screen Presumptive negative 12/29/17 19:20 Ur Phencyclidine Scrn Presumptive negative 12/29/17 19:20 Ur Amphetamines Screen Presumptive negative 12/29/17 19:20 U Benzodiazepines Scrn Presumptive negative 12/29/17 19:20 Urine Cocaine Screen Presumptive negative 12/29/17 19:20 U Marijuana (THC) Screen Presumptive negative 12/29/17 19:20 Drugs of Abuse Note Disclamer 12/29/17 19:20 Plasma/Serum Alcohol < 0.01 % (0-0.07) 12/29/17 17:14 Blood Type AB POSITIVE 12/29/17 17:14 Antibody Screen Negative 12/29/17 17:14 - Imaging and Cardiology MRI - head: pending
[2018-01-04] MEDS ORDERED: ATIVAN IV ONE (11:24)
[2018-01-04] MEDS ORDERED: VANCOMYCIN 1,250 MG in NACL 0.9% 250ML 250 ML IV ONE (11:30)
[2018-01-04] MEDS ORDERED: VANCOMYCIN PHARMACY TO DOSE IV SCH (12:00)
[2018-01-04] MEDS: TYLENOL PO PRN (12:27)
[2018-01-04 13:02] LABS: INR 1.1 (0.87-1.13); Partial Thromboplastin Time 24.3 Sec. (24.2-36.6)
--- NOTE | 2018-01-04 13:40 | Progress Note ---
Subjective Date of service: 01/04/18 Interval history: spoke to hospitalist suspect new onset of seizures did want LP ordered will follow up Objective - Vital Sign Vital Signs - 12hr 01/04/18 01/04/18 01/04/18 02:04 05:58 10:26 Temperature 98.6 F Pulse Rate 100 H 109 H 118 H Respiratory 18 20 Rate Blood Pressure 146/78 165/87 146/91 O2 Sat by Pulse 94 95 Oximetry 01/04/18 01/04/18 11:54 12:48 Temperature 97.6 F Pulse Rate 116 H 116 H Respiratory 18 Rate Blood Pressure 187/103 187/103 O2 Sat by Pulse 96 Oximetry - Laboratory Findings CBC and BMP: 01/04/18 07:29 01/04/18 07:29 Abnormal Lab Findings: Abnormal Labs 12/29/17 12/29/17 12/29/17 17:11 17:14 17:14 WBC 23.9 H RBC 5.47 H Hgb 17.2 H Hct 47.6 H MCHC 36 H RDW 12.8 L Lymph % (Auto) [place] # Seg Neutrophils % Seg Neuts % (Manual) Lymphocytes % (Manual) Seg Neutrophils # Seg Neutrophils # Man 16.7 H Lymphocytes # (Manual) 5.7 H Monocytes # (Manual) 1.2 H APTT Sodium Potassium Chloride Carbon Dioxide BUN Creatinine Glucose POC Glucose 312 H Hemoglobin A1c Lactic Acid 8.50 H* Calcium Total Bilirubin Ammonia Triglycerides Cholesterol LDL Cholesterol Direct HDL Cholesterol Salicylates Acetaminophen 12/29/17 12/29/17 12/29/17 17:14 17:14 17:14 WBC RBC Hgb Hct MCHC RDW Lymph % (Auto) [place] # Seg Neutrophils % Seg Neuts % (Manual) Lymphocytes % (Manual) Seg Neutrophils # Seg Neutrophils # Man Lymphocytes # (Manual) Monocytes # (Manual) APTT 20.0 L Sodium 134 L Potassium 3.1 L Chloride 92.7 L Carbon Dioxide 14 L BUN Creatinine Glucose 384 H POC Glucose Hemoglobin A1c Lactic Acid Calcium Total Bilirubin 1.40 H Ammonia 21.0 L Triglycerides Cholesterol LDL Cholesterol Direct HDL Cholesterol Salicylates Acetaminophen 12/29/17 12/29/17 12/29/17 17:14 17:14 18:01 WBC RBC Hgb Hct MCHC RDW Lymph % (Auto) [place] # Seg Neutrophils % Seg Neuts % (Manual) Lymphocytes % (Manual) Seg Neutrophils # Seg Neutrophils # Man Lymphocytes # (Manual) Monocytes # (Manual) APTT Sodium Potassium Chloride Carbon Dioxide BUN Creatinine Glucose POC Glucose Hemoglobin A1c Lactic Acid 6.10 H* Calcium Total Bilirubin Ammonia Triglycerides Cholesterol LDL Cholesterol Direct HDL Cholesterol Salicylates < 0.3 L Acetaminophen < 5.0 L 12/29/17 12/29/17 12/30/17 Unknown Unknown 06:01 WBC 25.0 H RBC 5.68 H Hgb 16.7 H Hct 50.0 H MCHC RDW Lymph % (Auto) [place] # Seg Neutrophils % Seg Neuts % (Manual) 92.0 H Lymphocytes % (Manual) 3.0 L Seg Neutrophils # Seg Neutrophils # Man 23.0 H Lymphocytes # (Manual) 0.8 L Monocytes # (Manual) APTT Sodium Potassium Chloride Carbon Dioxide BUN Creatinine Glucose POC Glucose Hemoglobin A1c 12.6 H Lactic Acid Calcium Total Bilirubin Ammonia Triglycerides 188 H Cholesterol 254 H LDL Cholesterol Direct 176 H HDL Cholesterol 70 H Salicylates Acetaminophen 12/30/17 12/30/17 12/30/17 06:01 07:26 08:38 WBC RBC Hgb Hct MCHC RDW Lymph % (Auto) [place] # Seg Neutrophils % Seg Neuts % (Manual) Lymphocytes % (Manual) Seg Neutrophils # Seg Neutrophils # Man Lymphocytes # (Manual) Monocytes # (Manual) APTT Sodium 130 L Potassium Chloride 91.0 L Carbon Dioxide 18 L BUN Creatinine Glucose 394 H POC Glucose 317 H Hemoglobin A1c Lactic Acid 2.70 H* Calcium Total Bilirubin Ammonia Triglycerides Cholesterol LDL Cholesterol Direct HDL Cholesterol Salicylates Acetaminophen 12/30/17 12/30/17 12/30/17 09:18 10:34 11:00 WBC RBC Hgb Hct MCHC RDW Lymph % (Auto) [place] # Seg Neutrophils % Seg Neuts % (Manual) Lymphocytes % (Manual) Seg Neutrophils # Seg Neutrophils # Man Lymphocytes # (Manual) Monocytes # (Manual) APTT Sodium 130 L 131 L Potassium 5.2 H 5.1 H Chloride 92.4 L 92.2 L Carbon Dioxide 18 L 18 L BUN Creatinine Glucose 336 H 327 H POC Glucose Hemoglobin A1c Lactic Acid 2.10 H* Calcium Total Bilirubin Ammonia Triglycerides Cholesterol LDL Cholesterol Direct HDL Cholesterol Salicylates Acetaminophen 12/30/17 12/30/17 12/30/17 11:00 12:35 16:45 WBC RBC Hgb Hct MCHC RDW Lymph % (Auto) [place] # Seg Neutrophils % Seg Neuts % (Manual) Lymphocytes % (Manual) Seg Neutrophils # Seg Neutrophils # Man Lymphocytes # (Manual) Monocytes # (Manual) APTT Sodium 134 L Potassium 3.5 L D Chloride Carbon Dioxide 17 L BUN Creatinine Glucose 228 H POC Glucose 226 H 178 H Hemoglobin A1c Lactic Acid Calcium Total Bilirubin Ammonia Triglycerides Cholesterol LDL Cholesterol Direct HDL Cholesterol Salicylates Acetaminophen 12/30/17 12/30/17 12/30/17 18:00 19:57 23:11 WBC RBC Hgb Hct MCHC RDW Lymph % (Auto) [place] # Seg Neutrophils % Seg Neuts % (Manual) Lymphocytes % (Manual) Seg Neutrophils # Seg Neutrophils # Man Lymphocytes # (Manual) Monocytes # (Manual) APTT Sodium 132 L Potassium Chloride Carbon Dioxide 18 L BUN Creatinine 0.6 L Glucose 186 H POC Glucose 160 H 280 H Hemoglobin A1c Lactic Acid Calcium 8.0 L Total Bilirubin Ammonia Triglycerides Cholesterol LDL Cholesterol Direct HDL Cholesterol Salicylates Acetaminophen 12/31/17 12/31/17 12/31/17 00:44 05:10 08:11 WBC 15.5 H RBC Hgb Hct MCHC RDW 13.1 L Lymph % (Auto) 10.8 L [place] # 0.9 H Seg Neutrophils % 83.4 H Seg Neuts % (Manual) Lymphocytes % (Manual) Seg Neutrophils # 12.9 H Seg Neutrophils # Man Lymphocytes # (Manual) Monocytes # (Manual) APTT Sodium 133 L Potassium Chloride Carbon Dioxide 20 L BUN Creatinine 0.6 L Glucose 247 H POC Glucose 186 H Hemoglobin A1c Lactic Acid Calcium 8.0 L Total Bilirubin Ammonia Triglycerides Cholesterol LDL Cholesterol Direct HDL Cholesterol Salicylates Acetaminophen 12/31/17 12/31/17 12/31/17 08:46 10:32 16:20 WBC RBC Hgb Hct MCHC RDW Lymph % (Auto) [place] # Seg Neutrophils % Seg Neuts % (Manual) Lymphocytes % (Manual) Seg Neutrophils # Seg Neutrophils # Man Lymphocytes # (Manual) Monocytes # (Manual) APTT Sodium 134 L Potassium Chloride Carbon Dioxide 19 L BUN Creatinine 0.6 L Glucose 205 H POC Glucose 186 H 273 H Hemoglobin A1c Lactic Acid Calcium 8.0 L Total Bilirubin Ammonia Triglycerides Cholesterol LDL Cholesterol Direct HDL Cholesterol Salicylates Acetaminophen 12/31/17 01/01/18 01/01/18 21:55 07:24 10:16 WBC RBC Hgb Hct MCHC RDW Lymph % (Auto) [place] # Seg Neutrophils % Seg Neuts % (Manual) Lymphocytes % (Manual) Seg Neutrophils # Seg Neutrophils # Man Lymphocytes # (Manual) Monocytes # (Manual) APTT Sodium Potassium Chloride Carbon Dioxide BUN Creatinine Glucose POC Glucose 207 H 172 H 210 H Hemoglobin A1c Lactic Acid Calcium Total Bilirubin Ammonia Triglycerides Cholesterol LDL Cholesterol Direct HDL Cholesterol Salicylates Acetaminophen 01/01/18 01/01/18 01/01/18 11:48 14:32 14:32 WBC 15.1 H RBC 5.24 H Hgb 15.9 H Hct MCHC 36 H RDW 12.6 L Lymph % (Auto) 8.4 L [place] # Seg Neutrophils % 85.8 H Seg Neuts % (Manual) Lymphocytes % (Manual) Seg Neutrophils # 12.9 H Seg Neutrophils # Man Lymphocytes # (Manual) Monocytes # (Manual) APTT Sodium 130 L Potassium 3.3 L Chloride 94.1 L Carbon Dioxide BUN 8 L Creatinine 0.5 L Glucose 184 H POC Glucose 207 H Hemoglobin A1c Lactic Acid Calcium Total Bilirubin Ammonia Triglycerides Cholesterol LDL Cholesterol Direct HDL Cholesterol Salicylates Acetaminophen 01/01/18 01/01/18 01/02/18 18:13 21:15 04:55 WBC 12.9 H RBC 5.54 H Hgb 16.5 H Hct 47.5 H MCHC 35 H RDW 12.8 L Lymph % (Auto) [place] # Seg Neutrophils % 74.6 H Seg Neuts % (Manual) Lymphocytes % (Manual) Seg Neutrophils # 9.6 H Seg Neutrophils # Man Lymphocytes # (Manual) Monocytes # (Manual) APTT Sodium Potassium Chloride Carbon Dioxide BUN Creatinine Glucose POC Glucose 181 H 158 H Hemoglobin A1c Lactic Acid Calcium Total Bilirubin Ammonia Triglycerides Cholesterol LDL Cholesterol Direct HDL Cholesterol Salicylates Acetaminophen 01/02/18 01/02/18 01/02/18 04:55 08:06 12:53 WBC RBC Hgb Hct MCHC RDW Lymph % (Auto) [place] # Seg Neutrophils % Seg Neuts % (Manual) Lymphocytes % (Manual) Seg Neutrophils # Seg Neutrophils # Man Lymphocytes # (Manual) Monocytes # (Manual) APTT Sodium 135 L Potassium 3.3 L Chloride 97.0 L Carbon Dioxide BUN Creatinine 0.6 L Glucose 139 H POC Glucose 121 H 180 H Hemoglobin A1c Lactic Acid Calcium Total Bilirubin Ammonia Triglycerides Cholesterol LDL Cholesterol Direct HDL Cholesterol Salicylates Acetaminophen 01/02/18 01/02/18 01/03/18 17:05 21:31 04:55 WBC 12.1 H RBC 5.83 H Hgb 17.3 H Hct 50.5 H MCHC RDW 13.0 L Lymph % (Auto) [place] # Seg Neutrophils % Seg Neuts % (Manual) Lymphocytes % (Manual) Seg Neutrophils # Seg Neutrophils # Man Lymphocytes # (Manual) Monocytes # (Manual) APTT Sodium Potassium Chloride Carbon Dioxide BUN Creatinine Glucose POC Glucose 211 H 185 H Hemoglobin A1c Lactic Acid Calcium Total Bilirubin Ammonia Triglycerides Cholesterol LDL Cholesterol Direct HDL Cholesterol Salicylates Acetaminophen 01/03/18 01/03/18 01/03/18 04:55 07:33 10:02 WBC 12.9 H RBC 5.78 H Hgb 17.2 H Hct 49.7 H MCHC 35 H RDW 12.7 L Lymph % (Auto) 9.0 L [place] # Seg Neutrophils % 85.7 H Seg Neuts % (Manual) Lymphocytes % (Manual) Seg Neutrophils # 11.1 H Seg Neutrophils # Man Lymphocytes # (Manual) Monocytes # (Manual) APTT Sodium 133 L Potassium Chloride 96.6 L Carbon Dioxide BUN Creatinine 0.5 L Glucose 211 H POC Glucose 197 H Hemoglobin A1c Lactic Acid Calcium Total Bilirubin Ammonia Triglycerides Cholesterol LDL Cholesterol Direct HDL Cholesterol Salicylates Acetaminophen 01/03/18 01/03/18 01/03/18 10:02 11:11 16:22 WBC RBC Hgb Hct MCHC RDW Lymph % (Auto) [place] # Seg Neutrophils % Seg Neuts % (Manual) Lymphocytes % (Manual) Seg Neutrophils # Seg Neutrophils # Man Lymphocytes # (Manual) Monocytes # (Manual) APTT Sodium 131 L Potassium 3.5 L Chloride 93.4 L Carbon Dioxide 21 L BUN Creatinine 0.6 L Glucose 274 H POC Glucose 233 H 153 H Hemoglobin A1c Lactic Acid Calcium Total Bilirubin Ammonia Triglycerides Cholesterol LDL Cholesterol Direct HDL Cholesterol Salicylates Acetaminophen 01/03/18 01/04/18 01/04/18 21:16 07:29 07:29 WBC 14.2 H RBC 5.61 H Hgb 16.8 H Hct 47.8 H MCHC 35 H RDW 12.9 L Lymph % (Auto) [place] # Seg Neutrophils % Seg Neuts % (Manual) Lymphocytes % (Manual) Seg Neutrophils # Seg Neutrophils # Man Lymphocytes # (Manual) Monocytes # (Manual) APTT Sodium 129 L Potassium Chloride 92.8 L Carbon Dioxide 19 L BUN Creatinine 0.4 L Glucose 197 H POC Glucose 145 H Hemoglobin A1c Lactic Acid Calcium Total Bilirubin Ammonia Triglycerides Cholesterol LDL Cholesterol Direct HDL Cholesterol Salicylates Acetaminophen 01/04/18 01/04/18 07:40 11:23 WBC RBC Hgb Hct MCHC RDW Lymph % (Auto) [place] # Seg Neutrophils % Seg Neuts % (Manual) Lymphocytes % (Manual) Seg Neutrophils # Seg Neutrophils # Man Lymphocytes # (Manual) Monocytes # (Manual) APTT Sodium Potassium Chloride Carbon Dioxide BUN Creatinine Glucose POC Glucose 166 H 164 H Hemoglobin A1c Lactic Acid Calcium Total Bilirubin Ammonia Triglycerides Cholesterol LDL Cholesterol Direct HDL Cholesterol Salicylates Acetaminophen
--- NOTE | 2018-01-04 19:04 | Consultation ---
History of Present Illness - Reason for Consult Consult date: 01/04/18 Leucocytosis Requesting physician: LUCIANO GUERIN - History of Present Illness Patient is a 52-year-old male with apparently no medical problems was brought to the emergency room with dizziness. The patient reportedly had a fall on that day prior to coming in. Upon evaluation in the emergency room, the patient was noted to have a significant leukocytosis along with new-onset diabetes and hypertension with lactic acidosis. He was given IV fluid resuscitation along with IV antibiotics. Patient had been responding to the treatment however, was noted to have difficulty with gait. Hence, neurology was consulted and patient is being planned for an MRI brain. There is also question of new onset seizures. Due to persistent leukocytosis, infectious diseases was consulted. At the time of my evaluation, the patient had just received IV Ativan for his MRI and hence has been very drowsy and unable to provide any history. Discussed with bedside RN, apparently mental status today has been somewhat altered. No report of fever or chills. No report of shortness of breath or cough. No report of nausea, vomiting or diarrhea. Review of systems: Limited due to patient being drowsy. Discussed with bedside RN. Cultures: 12/29/2017 blood culture: No growth Medications and Allergies Allergies Allergy/AdvReac Type Severity Reaction Status Date / Time No Known Allergies Allergy Unverified 12/29/17 17:54 Home Medications Medication Instructions Recorded Confirmed Last Taken Type AtorvaSTATin [Lipitor] 20 mg PO QHS #30 tablet 01/02/18 Unknown Rx Insulin NPH/Regular [NovoLIN 70/30] 18 unit SUB-Q BIDDIAB 30 Days 01/02/18 Unknown Rx units Lisinopril [Prinivil] 10 mg PO DAILY #30 tablet 01/02/18 Unknown Rx amLODIPine [Norvasc] 10 mg PO QDAY #30 tablet 01/02/18 Unknown Rx Active Meds: Active Medications Acetaminophen (Tylenol) 650 mg PO Q4H PRN PRN Reason: Pain MILD(1-3)/Fever >100.5/WEAVER Last Admin: 01/04/18 12:27 Dose: 650 mg Amlodipine Besylate (Norvasc) 10 mg PO QDAY [facility] Last Admin: 01/04/18 10:26 Dose: 10 mg Atorvastatin Calcium (Lipitor) 20 mg PO QHS [facility] Last Admin: 01/03/18 22:41 Dose: 20 mg Dextrose (D50w (25gm) Syringe) 0 ml IV PRN PRN PRN Reason: Hypoglycemia Hydralazine HCl (Apresoline) 5 mg IV Q6HR PRN PRN Reason: Hypertension Last Admin: 01/04/18 12:48 Dose: 5 mg Piperacillin Sod/Tazobactam Sod (Zosyn/Ns 4.5gm/100ml) 4.5 gm in 100 mls @ 200 mls/hr IV Q8HR [facility]; Protocol Last Admin: 01/04/18 13:02 Dose: 200 mls/hr Potassium Chloride/Sodium Chloride (Ns 0.45/Kcl 20meq) 20 meq in 1,000 mls @ 125 mls/hr IV DIRECT [facility] Last Admin: 01/04/18 06:07 Dose: 125 mls/hr Vancomycin HCl (Vancomycin/Ns 1 Gm/250 Ml) 1 gm in 250 mls @ 166.667 mls/hr IV Q12H [facility] Insulin Human Isoph/Insulin Regular (Humulin 70/30) 15 unit SUB-Q BIDDIAB [facility] Last Admin: 01/04/18 17:50 Dose: Not Given Insulin Human Lispro (Humalog) 0 unit SUB-Q ACHS [facility]; Protocol Last Admin: 01/04/18 17:49 Dose: 4 unit Ondansetron HCl (Zofran) 4 mg IV Q4H PRN PRN Reason: Nausea And Vomiting Last Admin: 01/01/18 10:20 Dose: 4 mg Oxycodone/Acetaminophen (Percocet 5/325) 1 tab PO Q4H PRN PRN Reason: Pain, Moderate (4-6) Last Admin: 01/03/18 13:34 Dose: 1 tab Sodium Chloride (Sodium Chloride Flush Syringe 10 Ml) 10 ml IV BID [facility] Last Admin: 01/04/18 10:28 Dose: 10 ml Sodium Chloride (Sodium Chloride Flush Syringe 10 Ml) 10 ml IV PRN PRN PRN Reason: LINE FLUSH Last Admin: 12/31/17 20:53 Dose: 10 ml Physical Examination - Physical Exam Narrative exam: Physical Exam: Constitutional: drowsy, difficult to awaken, post IV Ativan. No respiratory distress Head, Ears, Nose: Normocephalic, atraumatic. External ears, nose normal Eyes: Conjunctivae/corneas clear. No icterus. No ptosis. Neck: Supple, no meningeal signs Oral: unable to examine Cardiovascular: S1, S2 normal. Respiratory: Good air entry, clear to auscultation bilaterally GI: Soft, non-tender; bowel sounds normal. No peritoneal signs Musculoskeletal: No pedal edema, no cyanosis. Skin: bruises on both legs and right arm + forearm Hem/Lymphatic: No palpable cervical or supraclavicular nodes. No lymphangitis Psych: drowsy, no agitation Neurological: drowsy, difficult to awaken, post IV Ativan. Exam limited. - Constitutional Vitals: Vital Signs Temp Pulse Resp BP Pulse Ox 97.7 F 114 H 18 139/79 93 01/04/18 17:36 01/04/18 17:36 01/04/18 17:36 01/04/18 17:36 01/04/18 17:36 Temperature -Last 24 Hours Temperature 97.7 F Temperature 97.6 F Temperature 98.6 F Temperature 97.8 F Results - Labs CBC & Chem 7: 01/04/18 07:29 01/04/18 07:29 Labs: Abnormal lab results 01/03/18 01/04/18 01/04/18 Range/Units 21:16 07:29 07:29 WBC 14.2 H (4.5-11.0) K/mm3 RBC 5.61 H (3.65-5.03) M/mm3 Hgb 16.8 H (11.8-15.2) gm/dl Hct 47.8 H (35.5-45.6) % MCHC 35 H (32-34) % RDW 12.9 L (13.2-15.2) % Sodium 129 L (137-145) mmol/L Chloride 92.8 L (98-107) mmol/L Carbon Dioxide 19 L (22-30) mmol/L Creatinine 0.4 L (0.8-1.5) mg/dL Glucose 197 H (75-100) mg/dL POC Glucose 145 H (70-105) 01/04/18 01/04/18 01/04/18 Range/Units 07:40 11:23 16:26 WBC (4.5-11.0) K/mm3 RBC (3.65-5.03) M/mm3 Hgb (11.8-15.2) gm/dl Hct (35.5-45.6) % MCHC (32-34) % RDW (13.2-15.2) % Sodium (137-145) mmol/L Chloride (98-107) mmol/L Carbon Dioxide (22-30) mmol/L Creatinine (0.8-1.5) mg/dL Glucose (75-100) mg/dL POC Glucose 166 H 164 H 214 H (70-105) - Imaging and Cardiology Chest x-ray: report reviewed, image reviewed (without any evidence of pneumonia) CT scan - chest: report reviewed, image reviewed (without any evidence of infectious process) Assessment and Plan 52-year-old male with apparently no medical problems admitted with new onset DM: #1 Leukocytosis: Unclear etiology. Likely reactive and also from hemoconcentration. Blood cultures have been negative. No evidence of a pneumonia. Patient has been receiving empiric antibiotics. Given altered mental status and questionable concern for seizures, agree with MRI brain as well as lumbar puncture. For now, we will change his empiric therapy to ceftriaxone and vancomycin. Overall, infectious process seems less likely. #2 Newly diagnosed diabetes mellitus, uncontrolled, presenting as DKA: With lactic acidosis: Lactic acidosis has resolved. Recommendations: Discontinued Zosyn Started IV ceftriaxone 2 g every 12 hours for [employer] coverage Continue IV vancomycin, target trough between 10-20 g per mL Agree with MRI and lumbar puncture, will follow results Repeat CBC in AM Will follow. Please call with questions. MD [facility] C: [phone] O: [phone] F: [phone]
[2018-01-04] MEDS: ROCEPHIN/NS 2 GM/100 ML 2 GM/100 ML BAG IV SCH (22:20)
[2018-01-04] MEDS ORDERED: VANCOMYCIN/NS 1 GM/250 ML 1 GM/250 ML BAG IV SCH (23:45)
[2018-01-05] MEDS: NS 0.45/KCL 20MEQ 20 MEQ/1,000 ML BAG IV SCH (05:04)
[2018-01-05 05:16] LABS: Hematocrit 43.7 % (35.5-45.6); Hemoglobin 15.3 gm/dl (11.8-15.2); Mean Corpuscular HGB Conc 35 % (32-34); Mean Corpuscular Hemoglobin 30 pg (28-32); Mean Corpuscular Volume 86 fl (84-94); Platelet Count 336 K/mm3 (140-440); Red Blood Count 5.09 M/mm3 (3.65-5.03)
[2018-01-05 05:27] LABS: BUN/Creatinine Ratio 32; Blood Urea Nitrogen 19 mg/dL (9-20); Calcium 8.7 mg/dL (8.4-10.2); Hemolysis Index 2
--- NOTE | 2018-01-05 08:02 | Progress Note ---
Assessment and Plan 52-year-old male with apparently no medical problems admitted with new onset DM: #1 Leukocytosis: Continuing, Likely reactive and also from hemoconcentration. Blood cultures remain negative. No evidence of a pneumonia, Zosyn discontinued. Given altered mental status and questionable concern for seizures , agree with MRI brain as well as lumbar puncture. For now, we will change his empiric therapy to ceftriaxone and vancomycin. Will order HIV test today. Overall, infectious process seems less likely. #2 Newly diagnosed diabetes mellitus, uncontrolled, presenting as DKA: With lactic acidosis: Lactic acidosis has resolved. Recommendations: continue IV ceftriaxone 2 g every 12 hours for [employer] coverage, D2 Continue IV vancomycin, target trough between 10-20 g per mL, D2 F/u with results of MRI and lumbar puncture F/u on HIV test Dr. Washington will be taking call from home on Monday , . He will be making rounds in the hospital on Monday. Please call for questions. [facility] M: [phone] O:[phone] Subjective Date of service: 01/05/18 Interval history: Patient was sitting up in bed. Patient continues to have altered mental status. Patient was unable to answer questions or provide a history. Current Antimicrobials: Ceftriaxone Vancomycin Previous Antimicrobials: Zosyn Objective - Exam Narrative Exam: Constitutional: Alert, but nonconversant Head, Ears, Nose: Normocephalic, atraumatic. External ears, nose normal Eyes: Conjunctivae/corneas clear. No icterus. No ptosis. Neck: Supple, no meningeal signs Oral: unable to examine Cardiovascular: S1, S2 normal. Respiratory: Good air entry, fine crackles throughout the bases. GI: Soft, non-tender; bowel sounds , hyypoactive. No peritoneal signs. . Musculoskeletal: No pedal edema, no cyanosis. Skin: bruises on both legs and right arm + forearm Hem/Lymphatic: No palpable cervical or supraclavicular nodes. No lymphangitis Psych: Altered mental status, no agitation Neurological: Altered mental status, unable to answer simple questions, no agitation - Constitutional Vitals: Vital Signs Temp Pulse Resp BP Pulse Ox 99.0 F 111 H 20 131/69 92 01/04/18 22:03 01/04/18 22:03 01/04/18 22:03 01/04/18 22:03 01/04/18 22:03 Temperature -Last 24 Hours Temperature 99.0 F Temperature 97.7 F Temperature 97.6 F - Labs CBC & Chem 7: 01/05/18 04:14 01/05/18 04:14 Labs: Abnormal lab results 01/04/18 01/04/18 01/04/18 Range/Units 07:29 11:23 16:26 WBC (4.5-11.0) K/mm3 RBC (3.65-5.03) M/mm3 Hgb (11.8-15.2) gm/dl MCHC (32-34) % RDW (13.2-15.2) % Sodium 129 L (137-145) mmol/L Chloride 92.8 L (98-107) mmol/L Carbon Dioxide 19 L (22-30) mmol/L Creatinine 0.4 L (0.8-1.5) mg/dL Glucose 197 H (75-100) mg/dL POC Glucose 164 H 214 H (70-105) 01/04/18 01/05/18 01/05/18 Range/Units 21:33 04:14 04:14 WBC 15.5 H (4.5-11.0) K/mm3 RBC 5.09 H (3.65-5.03) M/mm3 Hgb 15.3 H (11.8-15.2) gm/dl MCHC 35 H (32-34) % RDW 13.0 L (13.2-15.2) % Sodium 132 L (137-145) mmol/L Chloride 95.7 L (98-107) mmol/L Carbon Dioxide 20 L (22-30) mmol/L Creatinine 0.6 L (0.8-1.5) mg/dL Glucose 221 H (75-100) mg/dL POC Glucose 180 H (70-105) 01/05/18 Range/Units 07:16 WBC (4.5-11.0) K/mm3 RBC (3.65-5.03) M/mm3 Hgb (11.8-15.2) gm/dl MCHC (32-34) % RDW (13.2-15.2) % Sodium (137-145) mmol/L Chloride (98-107) mmol/L Carbon Dioxide (22-30) mmol/L Creatinine (0.8-1.5) mg/dL Glucose (75-100) mg/dL POC Glucose 176 H (70-105)
[2018-01-05] MEDS ORDERED: THORAZINE PO SCH (10:00)
[2018-01-05] MEDS ORDERED: ATIVAN IV ONE (10:00)
[2018-01-05] MEDS: NORVASC PO SCH (10:26)
[2018-01-05] MEDS: SODIUM CHLORIDE FLUSH SYRINGE 10 ML IV SCH (10:27)
[2018-01-05] MEDS: ROCEPHIN/NS 2 GM/100 ML 2 GM/100 ML BAG IV SCH (10:27)
[2018-01-05] MEDS: HumaLOG SUB-Q SCH ×3 (10:28→17:45)
[2018-01-05] MEDS: VANCOMYCIN/NS 1 GM/250 ML 1 GM/250 ML BAG IV SCH ×2 (10:35→18:05)
--- NOTE | 2018-01-05 11:58 | Progress Note ---
Assessment and Plan Assessment and plan: 52-year-old male with no significant past medical history presented to the emergency department with complaints of passed out While in the ED BP was checked and he was in hypertensive urgency, new onset diabetes mellitus with hyperglycemia. SIRS - Leukocytosis, could be reactive - Blood culture negative - on empiric ceftriaxone and vancomycin for now Per ID - Await MRI and lumber puncture - Discuss with Neurology if any other etiology could be leading to this. - Consult ID INPUT NOTED - Lumber puncture to evaluate viral harbormaster infection DKA - Patient was admitted to the floor - resolved treated according to DKA protocol Diabetes mellitus with hyperglycemia, newly diagnosed - A1c is 12.5 - We will restart him on 70/30, 37 sodium, ADA diet, Accu-Chek - Adjust insulin - Education on DM managemet - Low dose ACEI Hypertensive urgency - Patient is on when necessary hydralazine and amlodipine - We'll monitor closely and adjust medications as needed Nausea and Vomiting - symptomatic treatment Hyperlipidemia -Patient is on Lipitor Ataxia -PT/OT noted, patient requiring maximum assist Syncope -CT negative -Per mother this is the first incident. Not sure how patient has the bruising in the legs. Discussed extensively with the mother. Patient did not attend college, she states bad influence, He has not had a job for some time and lives at home with the mother, mother also appears to be the primary account executive healthcare for this patient. For his age and the report of no medical condition in the past this is concerning. -MRI HEAD PENDING - EEG ordered by Neurology -Neurology consult Depression: OUTPATIENT PSYCHIATRY DVT prophylaxis - On lovenox Disposition - continue inpatient care - pending MRI, Lumber pucture result. History Interval history: Patient seen and examined, for MRI today. 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 Hospitalist Physical - Physical exam Narrative exam: Not in cardiopulmonary distress. The patient appeared well nourished and normally developed. Vital signs as documented. Head exam is unremarkable. No scleral icterus . Neck is without jugular venous distension, thyromegaly, or carotid bruits. Lungs are clear to auscultation. Cardiac exam reveals regular rate and Rhythm. First and second heart sounds normal. No murmurs, rubs or gallops. Abdominal exam reveals normal bowel sounds, no masses, no organomegaly and no aortic enlargement. Extremities are nonedematous and both femoral and pedal pulses are normal. DIPPER OPERATOR: lathergic awake,and oriented 3. gait not assess SKIN: Multiple skin bruising in bilateral lower ext - Constitutional Vitals: Temp Pulse Resp BP Pulse Ox 99.0 F 111 H 20 131/69 92 01/04/18 22:03 01/04/18 22:03 01/04/18 22:03 01/05/18 10:26 01/04/18 22:03 Results - Labs CBC & Chem 7: 01/05/18 04:14 01/05/18 04:14 Labs: Laboratory Last Values WBC 15.5 K/mm3 (4.5-11.0) H 01/05/18 04:14 RBC 5.09 M/mm3 (3.65-5.03) H 01/05/18 04:14 Hgb 15.3 gm/dl (11.8-15.2) H 01/05/18 04:14 Hct 43.7 % (35.5-45.6) 01/05/18 04:14 MCV 86 fl (84-94) 01/05/18 04:14 MCH 30 pg (28-32) 01/05/18 04:14 MCHC 35 % (32-34) H 01/05/18 04:14 RDW 13.0 % (13.2-15.2) L 01/05/18 04:14 Plt Count 336 K/mm3 (140-440) 01/05/18 04:14 Lymph % (Auto) 9.0 % (13.4-35.0) L 01/03/18 10:02 Stark % (Auto) 5.0 % (0.0-7.3) 01/03/18 10:02 Eos % (Auto) 0.0 % (0.0-4.3) 01/03/18 10:02 Baso % (Auto) 0.3 % (0.0-1.8) 01/03/18 10:02 Lymph # 1.2 K/mm3 (1.2-5.4) 01/03/18 10:02 Stark # 0.6 K/mm3 (0.0-0.8) 01/03/18 10:02 Eos # 0.0 K/mm3 (0.0-0.4) 01/03/18 10:02 Baso # 0.0 K/mm3 (0.0-0.1) 01/03/18 10:02 Add Manual Diff Complete 12/30/17 06:01 Total Counted 100 12/30/17 06:01 Seg Neutrophils % 85.7 % (40.0-70.0) H 01/03/18 10:02 Seg Neuts % (Manual) 92.0 % (40.0-70.0) H 12/30/17 06:01 Band Neutrophils % 2.0 % 12/30/17 06:01 Lymphocytes % (Manual) 3.0 % (13.4-35.0) L 12/30/17 06:01 Reactive Lymphs % (Man) 2.0 % 12/30/17 06:01 Monocytes % (Manual) 1.0 % (0.0-7.3) 12/30/17 06:01 Eosinophils % (Manual) 0 % (0.0-4.3) 12/30/17 06:01 Basophils % (Manual) 0 % (0.0-1.8) 12/30/17 06:01 Metamyelocytes % 0 % 12/30/17 06:01 Myelocytes % 0 % 12/30/17 06:01 Promyelocytes % 0 % 12/30/17 06:01 Blast Cells % 0 % 12/30/17 06:01 Nucleated RBC % Not Reportable 12/30/17 06:01 Seg Neutrophils # 11.1 K/mm3 (1.8-7.7) H 01/03/18 10:02 Seg Neutrophils # Man 23.0 K/mm3 (1.8-7.7) H 12/30/17 06:01 Band Neutrophils # 0.5 K/mm3 12/30/17 06:01 Lymphocytes # (Manual) 0.8 K/mm3 (1.2-5.4) L 12/30/17 06:01 Abs React Lymphs (Man) 0.5 K/mm3 12/30/17 06:01 Monocytes # (Manual) 0.3 K/mm3 (0.0-0.8) 12/30/17 06:01 Eosinophils # (Manual) 0.0 K/mm3 (0.0-0.4) 12/30/17 06:01 Basophils # (Manual) 0.0 K/mm3 (0.0-0.1) 12/30/17 06:01 Metamyelocytes # 0.0 K/mm3 12/30/17 06:01 Myelocytes # 0.0 K/mm3 12/30/17 06:01 Promyelocytes # 0.0 K/mm3 12/30/17 06:01 Blast Cells # 0.0 K/mm3 12/30/17 06:01 WBC Morphology Not Reportable 12/30/17 06:01 Hypersegmented Neuts Not Reportable 12/30/17 06:01 Hyposegmented Neuts Not Reportable 12/30/17 06:01 Hypogranular Neuts Not Reportable 12/30/17 06:01 Smudge Cells Not Reportable 12/30/17 06:01 Toxic Granulation Not Reportable 12/30/17 06:01 Toxic Vacuolation Not Reportable 12/30/17 06:01 Dohle Bodies Not Reportable 12/30/17 06:01 Pelger-Huet Anomaly Not Reportable 12/30/17 06:01 Tavo Rods Not Reportable 12/30/17 06:01 Platelet Estimate Consistent w auto 12/30/17 06:01 Clumped Platelets Not Reportable 12/30/17 06:01 Plt Clumps, EDTA Not Reportable 12/30/17 06:01 Large Platelets Not Reportable 12/30/17 06:01 Giant Platelets Not Reportable 12/30/17 06:01 Platelet Satelliting Not Reportable 12/30/17 06:01 Plt Morphology Comment Not Reportable 12/30/17 06:01 RBC Morphology Normal 12/30/17 06:01 Dimorphic RBCs Not Reportable 12/30/17 06:01 Polychromasia Not Reportable 12/30/17 06:01 Hypochromasia Not Reportable 12/30/17 06:01 Poikilocytosis Not Reportable 12/30/17 06:01 Anisocytosis Not Reportable 12/30/17 06:01 Microcytosis Not Reportable 12/30/17 06:01 Macrocytosis Not Reportable 12/30/17 06:01 Spherocytes Not Reportable 12/30/17 06:01 Pappenheimer Bodies Not Reportable 12/30/17 06:01 Sickle Cells Not Reportable 12/30/17 06:01 Target Cells Not Reportable 12/30/17 06:01 Tear Drop Cells Not Reportable 12/30/17 06:01 Ovalocytes Not Reportable 12/30/17 06:01 Helmet Cells Not Reportable 12/30/17 06:01 Conteh-Williford Bodies Not Reportable 12/30/17 06:01 [place] Rings Not Reportable 12/30/17 06:01 [place] Cells Not Reportable 12/30/17 06:01 Bite Cells Not Reportable 12/30/17 06:01 Crenated Cell Not Reportable 12/30/17 06:01 Elliptocytes Not Reportable 12/30/17 06:01 Acanthocytes (Spur) Not Reportable 12/30/17 06:01 Rouleaux Not Reportable 12/30/17 06:01 Hemoglobin C Crystals Not Reportable 12/30/17 06:01 Schistocytes Not Reportable 12/30/17 06:01 Malaria parasites Not Reportable 12/30/17 06:01 Adama Bodies Not Reportable 12/30/17 06:01 Hem Pathologist Commnt No 12/30/17 06:01 PT 14.7 Sec. (12.2-14.9) 01/04/18 12:29 INR 1.10 (0.87-1.13) 01/04/18 12:29 APTT 24.3 Sec. (24.2-36.6) 01/04/18 12:29 Sodium 132 mmol/L (137-145) L 01/05/18 04:14 Potassium 3.8 mmol/L (3.6-5.0) 01/05/18 04:14 Chloride 95.7 mmol/L (98-107) L 01/05/18 04:14 Carbon Dioxide 20 mmol/L (22-30) L 01/05/18 04:14 Anion Gap 20 mmol/L 01/05/18 04:14 BUN 19 mg/dL (9-20) 01/05/18 04:14 Creatinine 0.6 mg/dL (0.8-1.5) L 01/05/18 04:14 Estimated GFR > 60 ml/min 01/05/18 04:14 BUN/Creatinine Ratio 32 % 01/05/18 04:14 Glucose 221 mg/dL (75-100) H 01/05/18 04:14 POC Glucose 176 (70-105) H 01/05/18 07:16 Hemoglobin A1c 12.6 % (4-6) H 12/29/17 Unknown Lactic Acid 1.00 mmol/L (0.7-2.0) 12/30/17 18:00 Calcium 8.7 mg/dL (8.4-10.2) 01/05/18 04:14 Phosphorus 3.20 mg/dL (2.5-4.5) 12/30/17 09:18 Magnesium 2.00 mg/dL (1.7-2.3) 12/30/17 09:18 Total Bilirubin 1.40 mg/dL (0.1-1.2) H 12/29/17 17:14 AST 19 units/L (5-40) 12/29/17 17:14 ALT 16 units/L (7-56) 12/29/17 17:14 Alkaline Phosphatase 71 units/L (35-129) 12/29/17 17:14 Ammonia 21.0 umol/L (25-60) L 12/29/17 17:14 Troponin T < 0.010 ng/mL (0.00-0.029) 12/29/17 17:14 Total Protein 7.2 g/dL (6.3-8.2) 12/29/17 17:14 Albumin 4.6 g/dL (3.9-5) 12/29/17 17:14 Albumin/Globulin Ratio 1.8 % 12/29/17 17:14 Triglycerides 188 mg/dL (2-149) H 12/29/17 Unknown Cholesterol 254 mg/dL (50-199) H 12/29/17 Unknown LDL Cholesterol Direct 176 mg/dL (50-130) H 12/29/17 Unknown HDL Cholesterol 70 mg/dL (40-59) H 12/29/17 Unknown Cholesterol/HDL Ratio 3.62 % 12/29/17 Unknown Urine Color Straw (Yellow) 12/29/17 19:20 Urine Turbidity Clear (Clear) 12/29/17 19:20 Urine pH 5.0 (5.0-7.0) 12/29/17 19:20 Ur Specific Jackson 1.022 (1.003-1.030) 12/29/17 19:20 Urine Protein <15 mg/dl mg/dL (Negative) 12/29/17 19:20 Urine Glucose (UA) >=500 mg/dL (Negative) 12/29/17 19:20 Urine Ketones 20 mg/dL (Negative) 12/29/17 19:20 Urine Blood Neg (Negative) 12/29/17 19:20 Urine Nitrite Neg (Negative) 12/29/17 19:20 Urine Bilirubin Neg (Negative) 12/29/17 19:20 Urine Urobilinogen < 2.0 mg/dL (<2.0) 12/29/17 19:20 Ur Leukocyte Esterase Neg (Negative) 12/29/17 19:20 Urine WBC (Auto) < 1.0 /HPF (0.0-6.0) 12/29/17 19:20 Urine RBC (Auto) 1.0 /HPF (0.0-6.0) 12/29/17 19:20 Urine Mucus Few /HPF 12/29/17 19:20 Salicylates < 0.3 mg/dL (2.8-20.0) L 12/29/17 17:14 Urine Opiates Screen Presumptive negative 12/29/17 19:20 Urine Methadone Screen Presumptive negative 12/29/17 19:20 Acetaminophen < 5.0 ug/mL (10.0-30.0) L 12/29/17 17:14 Ur Barbiturates Screen Presumptive negative 12/29/17 19:20 Ur Phencyclidine Scrn Presumptive negative 12/29/17 19:20 Ur Amphetamines Screen Presumptive negative 12/29/17 19:20 U Benzodiazepines Scrn Presumptive negative 12/29/17 19:20 Urine Cocaine Screen Presumptive negative 12/29/17 19:20 U Marijuana (THC) Screen Presumptive negative 12/29/17 19:20 Drugs of Abuse Note Disclamer 12/29/17 19:20 Plasma/Serum Alcohol < 0.01 % (0-0.07) 12/29/17 17:14 Blood Type AB POSITIVE 12/29/17 17:14 Antibody Screen Negative 12/29/17 17:14
[2018-01-05] MEDS ORDERED: XYLOCAINE 1%/ EPI 1:100,000 INFILTRATI ONE (12:14)
[2018-01-05 13:39] LABS: Glucose,CSF 115 mg/dL
[2018-01-05 14:18] LABS: Appearance,CSF Clear
--- NOTE | 2018-01-05 14:31 | Procedure Note ---
Date of procedure: 01/05/18 Pre-op diagnosis: ams Post-op diagnosis: same Procedure: lumbar puncture Findings: clear fluid Anesthesia: local Surgeon: JOAN DAVIDSON Estimated blood loss: none Pathology: list (csf) Specimen disposition: to lab Condition: stable Disposition: floor
--- NOTE | 2018-01-05 14:42 | Magnetic Resonance Report ---
FINAL REPORT EXAM: MR BRAIN WO CON HISTORY: seizure TECHNIQUE: MRI of the brain without IV contrast. PRIORS: CT head December 29, 2017. FINDINGS: Serpiginous areas of restricted diffusion within the left cerebellar hemisphere identified. Gradient echo sequences demonstrate artifact. High T1 and T2 signal characteristics within the left cerebellar hemisphere. Increased T2 FLAIR signal also noted. The focal ill-defined signal characteristics near the medial aspect of the left sub or patellar hemisphere and slightly extending into the right cerebellar hemisphere may represent hemorrhage and edema. There is now effacement of the 4th ventricle which was not present on the prior CT scan. Interval development [id number] bilateral hydrocephalus noted. T2 hyperintensities around the subependymal regions of both lateral ventricles noted. Slight right midline shift in the posterior fossa identified. Pre pontine cistern and central pontine angles are also slightly effaced. Slightly deform anterior aspect of the enmanuel abuts the clivus. Midline structures are unremarkable. There is no tonsillar ectopy. Age appropriate smith-white matter differentiation is noted. Paranasal sinuses are unremarkable. Globes are intact. Calvarial signal characteristics are grossly unremarkable. Extracranial soft tissues are intact. IMPRESSION: Signal changes in the left cerebellar hemisphere suggests ischemia with hemorrhagic transformation or hemorrhagic and stroke. Edema and hemorrhage in the left cerebellar hemisphere causes effacement of the 4th ventricle with new hydrocephalus and subependymal edema. There is slight effacement of the pre pontine cistern and CP angles. Mass is not entirely excluded. Further imaging with a MRI of the brain with and without contrast or CT of the brain with and without contrast may be helpful if clinically indicated. January 05, 2018 at 1140 PDT: I discussed the findings over phone with Nurse García.
[2018-01-05 14:46] LABS: Total Cells Counted 100 /mm3
[2018-01-05 14:47] LABS: Red Blood Cell,CSF 1575 /mm3 (0-0); White Blood Cell,CSF 15 /mm3 (1-10)
--- NOTE | 2018-01-05 14:48 | Magnetic Resonance Report ---
FINAL REPORT EXAM: MR CERVICAL SPINE WO CON HISTORY: cva TECHNIQUE: MRI of the cervical spine without IV contrast. PRIORS: None currently available. FINDINGS: Axial images are degraded by motion artifact. No annealing operator lines provided. Low lying cerebellar tonsils noted. No ectopy. Signal changes within the posterior fossa discussed on the MRI brain. Marrow signal characteristics are appropriate for age. There is no subluxation. There is no fracture. The atlanto-axial articulation appears intact. C1-C2: Moderate to severe arthritis. Mild subluxation. Prominence of the transverse ligament. Mild to moderate spinal canal narrowing. C2: Focal T2 hyperintensity within the cord measures 6.7 x 2.3 mm evaluation is limited because there are no axial images. C2-C6 demonstrates disc bulges with grade 1 posterior subluxations at C2-C4. [id number] spinal canal narrowing and indentation of the ventral cord. No abnormal signal characteristics. Neural foramina are not well evaluated on the sagittal images. C6-T1 demonstrates mild bulges without significant canal narrowing. Prevertebral soft tissue structures are unremarkable. IMPRESSION: Limited imaging. Axial images of the graded by motion artifact. No annealing operator lines provided. Xjtt-[id number] degenerative discs C2-C6 with [id number] spinal canal narrowing. Evaluation limited because axial images are degraded by motion artifact. Low lying cerebellar tonsils. Focal area of T2 hyperintensity within cervical cord at the C2 level may represent a small syrinx, cystic cephalo malacia, or myelitis.
--- NOTE | 2018-01-05 15:09 | Fluoroscopy Report ---
Lumbar puncture: AMS. The patient is not conscious. He is placed prone on x-ray table. Fluoroscopic observation identifies an optimum approach at L2. The skin was cleansed with Betadine and 1% lidocaine used for local anesthesia. The back was draped. An 18-gauge needle was successfully placed into the thecal sac. The initial fluid return was clear. The fluid was obtained in 3 separate vials with a total collection of proximally 7 cc. This was obtained with some difficulty due to poor flow. The needle was removed and the entrance site bandaged. There is no obvious patient complications identified.
[2018-01-05] MEDS ORDERED: NACL 0.9% 250ML 250 ML IV ONE (15:17)
[2018-01-05] MEDS ORDERED: NACL 0.9% 500 ML 500 ML IV ONE (15:45)
--- NOTE | 2018-01-05 15:53 | Discharge Summary ---
Providers - Providers Date of Admission: 12/29/17 23:00 Attending physician: LUCIANO GUERIN MD 12/30/17 08:36 Consult to Dietitian/Nutrition [CONS] Routine Physician Instructions: Reason For Exam: Reason for Consult: Diet education 01/02/18 09:25 Physical Therapy Evaluation and Treat [CONS] Routine Comment: Reason For Exam: generalized weakness 01/02/18 14:54 Consult to Physician [CONS] Routine Comment: Consulting Provider: TRENTON FIGUEROA Physician Instructions: Reason For Exam: GENERALIzed ataxia 01/04/18 11:05 Consult to Physician [CONS] Routine Comment: Consulting Provider: DIDIER HATHAWAY Physician Instructions: Reason For Exam: PERSISTENT LEUKOCYTOSIS ?INFECTIOUS PATHOLOGY Primary care physician: AUTO DAMAGE APPRAISER Hospitalization Reason for admission: cva Condition: Critical Hospital course: 52-year-old male with no significant past medical history presented to the emergency department with complaints of passed out While in the ED BP was checked and he was in hypertensive urgency, new onset diabetes mellitus with hyperglycemia Possible DKA and treated as such. Initial imaging study with CT was negative for CVA, patient continued to have a delirius state And ataxia and was started on abx although with no fever, cultures were negative, Neurology was consulted and felt patient has underlying seizure. Lumber puture was obtained in addition to MRI was eventually obtained following Ativan use and thorazine for the repeated hiccups with result showing IMPRESSION: 'Signal changes in the left cerebellar hemisphere suggests ischemia with hemorrhagic transformation or hemorrhagic and stroke. Edema and hemorrhage in the left cerebellar hemisphere causes effacement of the 4th ventricle with new hydrocephalus and subependymal edema. There is slight effacement of the pre pontine cistern and CP angles. Mass is not entirely excluded. Further imaging with a MRI of the brain with and without contrast or CT of the brain with and without contrast may be helpful if clinically indicated. " Code stroke was called, patient was noted to have a NIH scale of 7 Although the Ativan may have played a contributing factor. Nevertheless the patient on discussion with Teleneurology and our neurologist recommended the patient be transferred to A tertiary hospital which I totally support and had already started the process. [facility] has been called and they graciously accepted but stated they are work on a bed issue and will check their facility and [place] for bed to transfuse. 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 and effacement of the 4th ventricle Possible obstruction hydrocephalus and subependymal Edema SIRS likely reactive from above Metabolic Encephalopathy DKA Hypotension Diabetes mellitus with hyperglycemia, newly diagnosed- A1c is 12.5 Hypertensive urgency Nausea and Vomiting -Resolved first day Hyperlipidemia Ataxia Syncope Depression per mother Disposition: DC/TX-70 ANOTHER TYPE [facility] Time spent for discharge: 35 mins Core Measure Documentation - Palliative Care Palliative Care/ Comfort Measures: Not Applicable - Core Measures Any of the following diagnoses?: stroke - VTE Discharge Requirements Deep Vein Thrombosis/Pulmonary Embolism Present on Admission: No - Stroke Discharge Requirements Statin for LDL = or >70 mg/dl on DC: Yes Anticoag for atrial fib/atrial flutter: Not Applicable Antithrombotic for ischemic stroke: No Reason for no antithrombotic on DC: Medical Contraindication (HEMORRHAGIC STROKE AND PATIENT BEING TRANSFERRED) Exam - Physical Exam Narrative exam: VITAL SIGNS: Reviewed. GENERAL: The patient appeared well nourished and normally developed, Delirius. Vital signs as documented. HEAD: No signs of head trauma. EYES: Pupils are equal. Extraocular motions intact. EARS: Hearing grossly intact. MOUTH: Oropharynx is normal. NECK: No adenopathy, no JVD. CHEST: Chest with clear breath sounds bilaterally. No wheezes, rales, or rhonchi. CARDIAC: Regular rate and rhythm. S1 and S2, without murmurs, gallops, or rubs. VASCULAR: No Edema. Peripheral pulses normal and equal in all extremities. ABDOMEN: Soft, without detectable tenderness. No sign of distention. No rebound or guarding, and no masses palpated. Bowel Sounds normal. MUSCULOSKELETAL: Good range of motion of all major joints. Extremities without clubbing, cyanosis or edema. NEUROLOGIC EXAM: awake, lethargic, and oriented x 3. No focal sensory or strength deficits although generalized weakness. Speech normal. Follows commands some commands. intermittent delirium PSYCHIATRIC: Mood flat. SKIN: multiple old lesion lower ext. - Constitutional Vitals: Temp Pulse Resp BP Pulse Ox 98.2 F 133 H 22 96/61 92 01/05/18 15:01 01/05/18 14:57 01/05/18 15:01 01/05/18 15:01 01/05/18 15:01 Plan Follow up with: SAMEERA ANAND MD [Primary Care Provider] - 3-5 Days TRENTON FIGUEROA MD [Staff Physician] - 7 Days Prescriptions: AtorvaSTATin [Lipitor] 20 mg PO QHS #30 tablet amLODIPine [Norvasc] 10 mg PO QDAY #30 tablet Insulin NPH/Regular [NovoLIN 70/30] 18 unit SUB-Q BIDDIAB 30 Days units Lisinopril [Prinivil] 10 mg PO DAILY #30 tablet Other Discharge Orders: Glucometer supplies[Amb] Location: None Selected Glucometer (Amb) Location: None Selected
[2018-01-05] MEDS ORDERED: NACL 0.9% IV ONE (17:11)
[2018-01-05] MEDS ORDERED: DECADRON IV ONE (17:11)
--- NOTE | 2018-01-05 17:32 | Progress Note ---
Subjective Date of service: 01/05/18 Interval history: I have doubled checked the transfer service and Dr. Kern plans to admit to [facility] and he is aware of the clinical course of the patient and present condition.... 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 the MRI gotten today shows midline edema in the cerebellum and small degree of bleed mostly ischemic infarct the MRI of the cervical spine cord shows T2 hyperintensity which may support infarct - vascular etiology BP support with boluses of normal saline he did get [facility] TO GET MRI BECAUSE YESTERDAY MRI could not be done due to movement- Decadron 10 mg IVP will be given will get transfer immediately to ER at [facility] per Dr. Kern get Neurosurgery to see in ED - because he will need a shunt I have evaluated the first CT and this is definitely not a metastatic lesion or tumor of cerebellum Dr. Raygoza and myself are discussing for the last two hours on third floor medicine for clinical management- First got call from [facility] about 3:00 pm today ( Monday ) alerting me as to the change on the MRI- patient is not on systemic anticoagulants if this is stroke then etiology likely related to diabetes not vasculitis Objective - Vital Sign Vital Signs - 12hr 01/05/18 01/05/18 01/05/18 05:11 10:26 14:57 Temperature 98.4 F 98.2 F Pulse Rate 125 H 133 H Respiratory 20 22 Rate Blood Pressure 135/75 131/69 80/49 O2 Sat by Pulse 92 87 Oximetry 01/05/18 01/05/18 15:00 15:01 Temperature 98.2 F Pulse Rate Respiratory 22 Rate Blood Pressure 96/61 O2 Sat by Pulse 97 92 Oximetry - Laboratory Findings CBC and BMP: 01/05/18 04:14 01/05/18 04:14 Abnormal Lab Findings: Abnormal Labs 12/29/17 12/29/17 12/29/17 17:11 17:14 17:14 WBC 23.9 H RBC 5.47 H Hgb 17.2 H Hct 47.6 H MCHC 36 H RDW 12.8 L Lymph % (Auto) [place] # Seg Neutrophils % Seg Neuts % (Manual) Lymphocytes % (Manual) Seg Neutrophils # Seg Neutrophils # Man 16.7 H Lymphocytes # (Manual) 5.7 H Monocytes # (Manual) 1.2 H APTT Sodium Potassium Chloride Carbon Dioxide BUN Creatinine Glucose POC Glucose 312 H Hemoglobin A1c Lactic Acid 8.50 H* Calcium Total Bilirubin Ammonia Triglycerides Cholesterol LDL Cholesterol Direct HDL Cholesterol Salicylates Acetaminophen 12/29/17 12/29/17 12/29/17 17:14 17:14 17:14 WBC RBC Hgb Hct MCHC RDW Lymph % (Auto) [place] # Seg Neutrophils % Seg Neuts % (Manual) Lymphocytes % (Manual) Seg Neutrophils # Seg Neutrophils # Man Lymphocytes # (Manual) Monocytes # (Manual) APTT 20.0 L Sodium 134 L Potassium 3.1 L Chloride 92.7 L Carbon Dioxide 14 L BUN Creatinine Glucose 384 H POC Glucose Hemoglobin A1c Lactic Acid Calcium Total Bilirubin 1.40 H Ammonia 21.0 L Triglycerides Cholesterol LDL Cholesterol Direct HDL Cholesterol Salicylates Acetaminophen 12/29/17 12/29/17 12/29/17 17:14 17:14 18:01 WBC RBC Hgb Hct MCHC RDW Lymph % (Auto) [place] # Seg Neutrophils % Seg Neuts % (Manual) Lymphocytes % (Manual) Seg Neutrophils # Seg Neutrophils # Man Lymphocytes # (Manual) Monocytes # (Manual) APTT Sodium Potassium Chloride Carbon Dioxide BUN Creatinine Glucose POC Glucose Hemoglobin A1c Lactic Acid 6.10 H* Calcium Total Bilirubin Ammonia Triglycerides Cholesterol LDL Cholesterol Direct HDL Cholesterol Salicylates < 0.3 L Acetaminophen < 5.0 L 12/29/17 12/29/17 12/30/17 Unknown Unknown 06:01 WBC 25.0 H RBC 5.68 H Hgb 16.7 H Hct 50.0 H MCHC RDW Lymph % (Auto) [place] # Seg Neutrophils % Seg Neuts % (Manual) 92.0 H Lymphocytes % (Manual) 3.0 L Seg Neutrophils # Seg Neutrophils # Man 23.0 H Lymphocytes # (Manual) 0.8 L Monocytes # (Manual) APTT Sodium Potassium Chloride Carbon Dioxide BUN Creatinine Glucose POC Glucose Hemoglobin A1c 12.6 H Lactic Acid Calcium Total Bilirubin Ammonia Triglycerides 188 H Cholesterol 254 H LDL Cholesterol Direct 176 H HDL Cholesterol 70 H Salicylates Acetaminophen 12/30/17 12/30/17 12/30/17 06:01 07:26 08:38 WBC RBC Hgb Hct MCHC RDW Lymph % (Auto) [place] # Seg Neutrophils % Seg Neuts % (Manual) Lymphocytes % (Manual) Seg Neutrophils # Seg Neutrophils # Man Lymphocytes # (Manual) Monocytes # (Manual) APTT Sodium 130 L Potassium Chloride 91.0 L Carbon Dioxide 18 L BUN Creatinine Glucose 394 H POC Glucose 317 H Hemoglobin A1c Lactic Acid 2.70 H* Calcium Total Bilirubin Ammonia Triglycerides Cholesterol LDL Cholesterol Direct HDL Cholesterol Salicylates Acetaminophen 12/30/17 12/30/17 12/30/17 09:18 10:34 11:00 WBC RBC Hgb Hct MCHC RDW Lymph % (Auto) [place] # Seg Neutrophils % Seg Neuts % (Manual) Lymphocytes % (Manual) Seg Neutrophils # Seg Neutrophils # Man Lymphocytes # (Manual) Monocytes # (Manual) APTT Sodium 130 L 131 L Potassium 5.2 H 5.1 H Chloride 92.4 L 92.2 L Carbon Dioxide 18 L 18 L BUN Creatinine Glucose 336 H 327 H POC Glucose Hemoglobin A1c Lactic Acid 2.10 H* Calcium Total Bilirubin Ammonia Triglycerides Cholesterol LDL Cholesterol Direct HDL Cholesterol Salicylates Acetaminophen 12/30/17 12/30/17 12/30/17 11:00 12:35 16:45 WBC RBC Hgb Hct MCHC RDW Lymph % (Auto) [place] # Seg Neutrophils % Seg Neuts % (Manual) Lymphocytes % (Manual) Seg Neutrophils # Seg Neutrophils # Man Lymphocytes # (Manual) Monocytes # (Manual) APTT Sodium 134 L Potassium 3.5 L D Chloride Carbon Dioxide 17 L BUN Creatinine Glucose 228 H POC Glucose 226 H 178 H Hemoglobin A1c Lactic Acid Calcium Total Bilirubin Ammonia Triglycerides Cholesterol LDL Cholesterol Direct HDL Cholesterol Salicylates Acetaminophen 12/30/17 12/30/17 12/30/17 18:00 19:57 23:11 WBC RBC Hgb Hct MCHC RDW Lymph % (Auto) [place] # Seg Neutrophils % Seg Neuts % (Manual) Lymphocytes % (Manual) Seg Neutrophils # Seg Neutrophils # Man Lymphocytes # (Manual) Monocytes # (Manual) APTT Sodium 132 L Potassium Chloride Carbon Dioxide 18 L BUN Creatinine 0.6 L Glucose 186 H POC Glucose 160 H 280 H Hemoglobin A1c Lactic Acid Calcium 8.0 L Total Bilirubin Ammonia Triglycerides Cholesterol LDL Cholesterol Direct HDL Cholesterol Salicylates Acetaminophen 12/31/17 12/31/17 12/31/17 00:44 05:10 08:11 WBC 15.5 H RBC Hgb Hct MCHC RDW 13.1 L Lymph % (Auto) 10.8 L [place] # 0.9 H Seg Neutrophils % 83.4 H Seg Neuts % (Manual) Lymphocytes % (Manual) Seg Neutrophils # 12.9 H Seg Neutrophils # Man Lymphocytes # (Manual) Monocytes # (Manual) APTT Sodium 133 L Potassium Chloride Carbon Dioxide 20 L BUN Creatinine 0.6 L Glucose 247 H POC Glucose 186 H Hemoglobin A1c Lactic Acid Calcium 8.0 L Total Bilirubin Ammonia Triglycerides Cholesterol LDL Cholesterol Direct HDL Cholesterol Salicylates Acetaminophen 12/31/17 12/31/17 12/31/17 08:46 10:32 16:20 WBC RBC Hgb Hct MCHC RDW Lymph % (Auto) [place] # Seg Neutrophils % Seg Neuts % (Manual) Lymphocytes % (Manual) Seg Neutrophils # Seg Neutrophils # Man Lymphocytes # (Manual) Monocytes # (Manual) APTT Sodium 134 L Potassium Chloride Carbon Dioxide 19 L BUN Creatinine 0.6 L Glucose 205 H POC Glucose 186 H 273 H Hemoglobin A1c Lactic Acid Calcium 8.0 L Total Bilirubin Ammonia Triglycerides Cholesterol LDL Cholesterol Direct HDL Cholesterol Salicylates Acetaminophen 12/31/17 01/01/18 01/01/18 21:55 07:24 10:16 WBC RBC Hgb Hct MCHC RDW Lymph % (Auto) [place] # Seg Neutrophils % Seg Neuts % (Manual) Lymphocytes % (Manual) Seg Neutrophils # Seg Neutrophils # Man Lymphocytes # (Manual) Monocytes # (Manual) APTT Sodium Potassium Chloride Carbon Dioxide BUN Creatinine Glucose POC Glucose 207 H 172 H 210 H Hemoglobin A1c Lactic Acid Calcium Total Bilirubin Ammonia Triglycerides Cholesterol LDL Cholesterol Direct HDL Cholesterol Salicylates Acetaminophen 01/01/18 01/01/18 01/01/18 11:48 14:32 14:32 WBC 15.1 H RBC 5.24 H Hgb 15.9 H Hct MCHC 36 H RDW 12.6 L Lymph % (Auto) 8.4 L [place] # Seg Neutrophils % 85.8 H Seg Neuts % (Manual) Lymphocytes % (Manual) Seg Neutrophils # 12.9 H Seg Neutrophils # Man Lymphocytes # (Manual) Monocytes # (Manual) APTT Sodium 130 L Potassium 3.3 L Chloride 94.1 L Carbon Dioxide BUN 8 L Creatinine 0.5 L Glucose 184 H POC Glucose 207 H Hemoglobin A1c Lactic Acid Calcium Total Bilirubin Ammonia Triglycerides Cholesterol LDL Cholesterol Direct HDL Cholesterol Salicylates Acetaminophen 01/01/18 01/01/18 01/02/18 18:13 21:15 04:55 WBC 12.9 H RBC 5.54 H Hgb 16.5 H Hct 47.5 H MCHC 35 H RDW 12.8 L Lymph % (Auto) [place] # Seg Neutrophils % 74.6 H Seg Neuts % (Manual) Lymphocytes % (Manual) Seg Neutrophils # 9.6 H Seg Neutrophils # Man Lymphocytes # (Manual) Monocytes # (Manual) APTT Sodium Potassium Chloride Carbon Dioxide BUN Creatinine Glucose POC Glucose 181 H 158 H Hemoglobin A1c Lactic Acid Calcium Total Bilirubin Ammonia Triglycerides Cholesterol LDL Cholesterol Direct HDL Cholesterol Salicylates Acetaminophen 01/02/18 01/02/18 01/02/18 04:55 08:06 12:53 WBC RBC Hgb Hct MCHC RDW Lymph % (Auto) [place] # Seg Neutrophils % Seg Neuts % (Manual) Lymphocytes % (Manual) Seg Neutrophils # Seg Neutrophils # Man Lymphocytes # (Manual) Monocytes # (Manual) APTT Sodium 135 L Potassium 3.3 L Chloride 97.0 L Carbon Dioxide BUN Creatinine 0.6 L Glucose 139 H POC Glucose 121 H 180 H Hemoglobin A1c Lactic Acid Calcium Total Bilirubin Ammonia Triglycerides Cholesterol LDL Cholesterol Direct HDL Cholesterol Salicylates Acetaminophen 01/02/18 01/02/18 01/03/18 17:05 21:31 04:55 WBC 12.1 H RBC 5.83 H Hgb 17.3 H Hct 50.5 H MCHC RDW 13.0 L Lymph % (Auto) [place] # Seg Neutrophils % Seg Neuts % (Manual) Lymphocytes % (Manual) Seg Neutrophils # Seg Neutrophils # Man Lymphocytes # (Manual) Monocytes # (Manual) APTT Sodium Potassium Chloride Carbon Dioxide BUN Creatinine Glucose POC Glucose 211 H 185 H Hemoglobin A1c Lactic Acid Calcium Total Bilirubin Ammonia Triglycerides Cholesterol LDL Cholesterol Direct HDL Cholesterol Salicylates Acetaminophen 01/03/18 01/03/18 01/03/18 04:55 07:33 10:02 WBC 12.9 H RBC 5.78 H Hgb 17.2 H Hct 49.7 H MCHC 35 H RDW 12.7 L Lymph % (Auto) 9.0 L [place] # Seg Neutrophils % 85.7 H Seg Neuts % (Manual) Lymphocytes % (Manual) Seg Neutrophils # 11.1 H Seg Neutrophils # Man Lymphocytes # (Manual) Monocytes # (Manual) APTT Sodium 133 L Potassium Chloride 96.6 L Carbon Dioxide BUN Creatinine 0.5 L Glucose 211 H POC Glucose 197 H Hemoglobin A1c Lactic Acid Calcium Total Bilirubin Ammonia Triglycerides Cholesterol LDL Cholesterol Direct HDL Cholesterol Salicylates Acetaminophen 01/03/18 01/03/18 01/03/18 10:02 11:11 16:22 WBC RBC Hgb Hct MCHC RDW Lymph % (Auto) [place] # Seg Neutrophils % Seg Neuts % (Manual) Lymphocytes % (Manual) Seg Neutrophils # Seg Neutrophils # Man Lymphocytes # (Manual) Monocytes # (Manual) APTT Sodium 131 L Potassium 3.5 L Chloride 93.4 L Carbon Dioxide 21 L BUN Creatinine 0.6 L Glucose 274 H POC Glucose 233 H 153 H Hemoglobin A1c Lactic Acid Calcium Total Bilirubin Ammonia Triglycerides Cholesterol LDL Cholesterol Direct HDL Cholesterol Salicylates Acetaminophen 01/03/18 01/04/18 01/04/18 21:16 07:29 07:29 WBC 14.2 H RBC 5.61 H Hgb 16.8 H Hct 47.8 H MCHC 35 H RDW 12.9 L Lymph % (Auto) [place] # Seg Neutrophils % Seg Neuts % (Manual) Lymphocytes % (Manual) Seg Neutrophils # Seg Neutrophils # Man Lymphocytes # (Manual) Monocytes # (Manual) APTT Sodium 129 L Potassium Chloride 92.8 L Carbon Dioxide 19 L BUN Creatinine 0.4 L Glucose 197 H POC Glucose 145 H Hemoglobin A1c Lactic Acid Calcium Total Bilirubin Ammonia Triglycerides Cholesterol LDL Cholesterol Direct HDL Cholesterol Salicylates Acetaminophen 01/04/18 01/04/18 01/04/18 07:40 11:23 16:26 WBC RBC Hgb Hct MCHC RDW Lymph % (Auto) [place] # Seg Neutrophils % Seg Neuts % (Manual) Lymphocytes % (Manual) Seg Neutrophils # Seg Neutrophils # Man Lymphocytes # (Manual) Monocytes # (Manual) APTT Sodium Potassium Chloride Carbon Dioxide BUN Creatinine Glucose POC Glucose 166 H 164 H 214 H Hemoglobin A1c Lactic Acid Calcium Total Bilirubin Ammonia Triglycerides Cholesterol LDL Cholesterol Direct HDL Cholesterol Salicylates Acetaminophen 01/04/18 01/05/18 01/05/18 21:33 04:14 04:14 WBC 15.5 H RBC 5.09 H Hgb 15.3 H Hct MCHC 35 H RDW 13.0 L Lymph % (Auto) [place] # Seg Neutrophils % Seg Neuts % (Manual) Lymphocytes % (Manual) Seg Neutrophils # Seg Neutrophils # Man Lymphocytes # (Manual) Monocytes # (Manual) APTT Sodium 132 L Potassium Chloride 95.7 L Carbon Dioxide 20 L BUN Creatinine 0.6 L Glucose 221 H POC Glucose 180 H Hemoglobin A1c Lactic Acid Calcium Total Bilirubin Ammonia Triglycerides Cholesterol LDL Cholesterol Direct HDL Cholesterol Salicylates Acetaminophen 01/05/18 01/05/18 01/05/18 07:16 15:22 16:40 WBC RBC Hgb Hct MCHC RDW Lymph % (Auto) [place] # Seg Neutrophils % Seg Neuts % (Manual) Lymphocytes % (Manual) Seg Neutrophils # Seg Neutrophils # Man Lymphocytes # (Manual) Monocytes # (Manual) APTT Sodium Potassium Chloride Carbon Dioxide BUN Creatinine Glucose POC Glucose 176 H 219 H 204 H Hemoglobin A1c Lactic Acid Calcium Total Bilirubin Ammonia Triglycerides Cholesterol LDL Cholesterol Direct HDL Cholesterol Salicylates Acetaminophen
--- NOTE | 2018-01-05 17:54 | Progress Note ---
Subjective Date of service: 01/05/18 Interval history: went over details of case with nurse yesterday he was alert/ tlaking did get Atvan 2 mg for MRI but could not be done due to hiccups and movement MRI cancelled and then today still with hiccups and movement and has to get thorazine at 50 mg po which he swallowed well and again Ativan 2mg so that MRI could be done... there fore some of sedation is caused by pre-procedure meds- there was no lethargy prior to the preprocedure meds at this point BP is stable I have elevated head of bed to reduce any cerebral edema at poper 20 degree angler and keep O2 high so as to reduce brain swelling with medical measures until transfer can be facilitated- I was at bedside proviing direct advice to staff pending transfer to [place] ED exam shows good respirations full EOM's reactive pupils and no focal weakness no hiccups present- ther respiratory pattern is not Josh Hanson as seen in severe intracranial hypertension spoke for long period with nurse that had him yesterday and today and there is no clear episode or event that can be documented as to when the stroke occured- It was not present in the ED when the patient was admitted becuase CT was negative- and all symptoms reflected diabetic complications or seizure Objective - Vital Sign Vital Signs - 12hr 01/05/18 01/05/18 01/05/18 10:26 14:57 15:00 Temperature 98.2 F Pulse Rate 133 H Respiratory 22 Rate Blood Pressure 131/69 80/49 O2 Sat by Pulse 87 97 Oximetry 01/05/18 15:01 Temperature 98.2 F Pulse Rate Respiratory 22 Rate Blood Pressure 96/61 O2 Sat by Pulse 92 Oximetry - Laboratory Findings CBC and BMP: 01/05/18 04:14 01/05/18 04:14 Abnormal Lab Findings: Abnormal Labs 12/29/17 12/29/17 12/29/17 17:11 17:14 17:14 WBC 23.9 H RBC 5.47 H Hgb 17.2 H Hct 47.6 H MCHC 36 H RDW 12.8 L Lymph % (Auto) [place] # Seg Neutrophils % Seg Neuts % (Manual) Lymphocytes % (Manual) Seg Neutrophils # Seg Neutrophils # Man 16.7 H Lymphocytes # (Manual) 5.7 H Monocytes # (Manual) 1.2 H APTT Sodium Potassium Chloride Carbon Dioxide BUN Creatinine Glucose POC Glucose 312 H Hemoglobin A1c Lactic Acid 8.50 H* Calcium Total Bilirubin Ammonia Triglycerides Cholesterol LDL Cholesterol Direct HDL Cholesterol Salicylates Acetaminophen 12/29/17 12/29/17 12/29/17 17:14 17:14 17:14 WBC RBC Hgb Hct MCHC RDW Lymph % (Auto) [place] # Seg Neutrophils % Seg Neuts % (Manual) Lymphocytes % (Manual) Seg Neutrophils # Seg Neutrophils # Man Lymphocytes # (Manual) Monocytes # (Manual) APTT 20.0 L Sodium 134 L Potassium 3.1 L Chloride 92.7 L Carbon Dioxide 14 L BUN Creatinine Glucose 384 H POC Glucose Hemoglobin A1c Lactic Acid Calcium Total Bilirubin 1.40 H Ammonia 21.0 L Triglycerides Cholesterol LDL Cholesterol Direct HDL Cholesterol Salicylates Acetaminophen 12/29/17 12/29/17 12/29/17 17:14 17:14 18:01 WBC RBC Hgb Hct MCHC RDW Lymph % (Auto) [place] # Seg Neutrophils % Seg Neuts % (Manual) Lymphocytes % (Manual) Seg Neutrophils # Seg Neutrophils # Man Lymphocytes # (Manual) Monocytes # (Manual) APTT Sodium Potassium Chloride Carbon Dioxide BUN Creatinine Glucose POC Glucose Hemoglobin A1c Lactic Acid 6.10 H* Calcium Total Bilirubin Ammonia Triglycerides Cholesterol LDL Cholesterol Direct HDL Cholesterol Salicylates < 0.3 L Acetaminophen < 5.0 L 12/29/17 12/29/17 12/30/17 Unknown Unknown 06:01 WBC 25.0 H RBC 5.68 H Hgb 16.7 H Hct 50.0 H MCHC RDW Lymph % (Auto) [place] # Seg Neutrophils % Seg Neuts % (Manual) 92.0 H Lymphocytes % (Manual) 3.0 L Seg Neutrophils # Seg Neutrophils # Man 23.0 H Lymphocytes # (Manual) 0.8 L Monocytes # (Manual) APTT Sodium Potassium Chloride Carbon Dioxide BUN Creatinine Glucose POC Glucose Hemoglobin A1c 12.6 H Lactic Acid Calcium Total Bilirubin Ammonia Triglycerides 188 H Cholesterol 254 H LDL Cholesterol Direct 176 H HDL Cholesterol 70 H Salicylates Acetaminophen 12/30/17 12/30/17 12/30/17 06:01 07:26 08:38 WBC RBC Hgb Hct MCHC RDW Lymph % (Auto) [place] # Seg Neutrophils % Seg Neuts % (Manual) Lymphocytes % (Manual) Seg Neutrophils # Seg Neutrophils # Man Lymphocytes # (Manual) Monocytes # (Manual) APTT Sodium 130 L Potassium Chloride 91.0 L Carbon Dioxide 18 L BUN Creatinine Glucose 394 H POC Glucose 317 H Hemoglobin A1c Lactic Acid 2.70 H* Calcium Total Bilirubin Ammonia Triglycerides Cholesterol LDL Cholesterol Direct HDL Cholesterol Salicylates Acetaminophen 12/30/17 12/30/17 12/30/17 09:18 10:34 11:00 WBC RBC Hgb Hct MCHC RDW Lymph % (Auto) [place] # Seg Neutrophils % Seg Neuts % (Manual) Lymphocytes % (Manual) Seg Neutrophils # Seg Neutrophils # Man Lymphocytes # (Manual) Monocytes # (Manual) APTT Sodium 130 L 131 L Potassium 5.2 H 5.1 H Chloride 92.4 L 92.2 L Carbon Dioxide 18 L 18 L BUN Creatinine Glucose 336 H 327 H POC Glucose Hemoglobin A1c Lactic Acid 2.10 H* Calcium Total Bilirubin Ammonia Triglycerides Cholesterol LDL Cholesterol Direct HDL Cholesterol Salicylates Acetaminophen 12/30/17 12/30/17 12/30/17 11:00 12:35 16:45 WBC RBC Hgb Hct MCHC RDW Lymph % (Auto) [place] # Seg Neutrophils % Seg Neuts % (Manual) Lymphocytes % (Manual) Seg Neutrophils # Seg Neutrophils # Man Lymphocytes # (Manual) Monocytes # (Manual) APTT Sodium 134 L Potassium 3.5 L D Chloride Carbon Dioxide 17 L BUN Creatinine Glucose 228 H POC Glucose 226 H 178 H Hemoglobin A1c Lactic Acid Calcium Total Bilirubin Ammonia Triglycerides Cholesterol LDL Cholesterol Direct HDL Cholesterol Salicylates Acetaminophen 12/30/17 12/30/17 12/30/17 18:00 19:57 23:11 WBC RBC Hgb Hct MCHC RDW Lymph % (Auto) [place] # Seg Neutrophils % Seg Neuts % (Manual) Lymphocytes % (Manual) Seg Neutrophils # Seg Neutrophils # Man Lymphocytes # (Manual) Monocytes # (Manual) APTT Sodium 132 L Potassium Chloride Carbon Dioxide 18 L BUN Creatinine 0.6 L Glucose 186 H POC Glucose 160 H 280 H Hemoglobin A1c Lactic Acid Calcium 8.0 L Total Bilirubin Ammonia Triglycerides Cholesterol LDL Cholesterol Direct HDL Cholesterol Salicylates Acetaminophen 12/31/17 12/31/17 12/31/17 00:44 05:10 08:11 WBC 15.5 H RBC Hgb Hct MCHC RDW 13.1 L Lymph % (Auto) 10.8 L [place] # 0.9 H Seg Neutrophils % 83.4 H Seg Neuts % (Manual) Lymphocytes % (Manual) Seg Neutrophils # 12.9 H Seg Neutrophils # Man Lymphocytes # (Manual) Monocytes # (Manual) APTT Sodium 133 L Potassium Chloride Carbon Dioxide 20 L BUN Creatinine 0.6 L Glucose 247 H POC Glucose 186 H Hemoglobin A1c Lactic Acid Calcium 8.0 L Total Bilirubin Ammonia Triglycerides Cholesterol LDL Cholesterol Direct HDL Cholesterol Salicylates Acetaminophen 12/31/17 12/31/17 12/31/17 08:46 10:32 16:20 WBC RBC Hgb Hct MCHC RDW Lymph % (Auto) [place] # Seg Neutrophils % Seg Neuts % (Manual) Lymphocytes % (Manual) Seg Neutrophils # Seg Neutrophils # Man Lymphocytes # (Manual) Monocytes # (Manual) APTT Sodium 134 L Potassium Chloride Carbon Dioxide 19 L BUN Creatinine 0.6 L Glucose 205 H POC Glucose 186 H 273 H Hemoglobin A1c Lactic Acid Calcium 8.0 L Total Bilirubin Ammonia Triglycerides Cholesterol LDL Cholesterol Direct HDL Cholesterol Salicylates Acetaminophen 12/31/17 01/01/18 01/01/18 21:55 07:24 10:16 WBC RBC Hgb Hct MCHC RDW Lymph % (Auto) [place] # Seg Neutrophils % Seg Neuts % (Manual) Lymphocytes % (Manual) Seg Neutrophils # Seg Neutrophils # Man Lymphocytes # (Manual) Monocytes # (Manual) APTT Sodium Potassium Chloride Carbon Dioxide BUN Creatinine Glucose POC Glucose 207 H 172 H 210 H Hemoglobin A1c Lactic Acid Calcium Total Bilirubin Ammonia Triglycerides Cholesterol LDL Cholesterol Direct HDL Cholesterol Salicylates Acetaminophen 01/01/18 01/01/18 01/01/18 11:48 14:32 14:32 WBC 15.1 H RBC 5.24 H Hgb 15.9 H Hct MCHC 36 H RDW 12.6 L Lymph % (Auto) 8.4 L [place] # Seg Neutrophils % 85.8 H Seg Neuts % (Manual) Lymphocytes % (Manual) Seg Neutrophils # 12.9 H Seg Neutrophils # Man Lymphocytes # (Manual) Monocytes # (Manual) APTT Sodium 130 L Potassium 3.3 L Chloride 94.1 L Carbon Dioxide BUN 8 L Creatinine 0.5 L Glucose 184 H POC Glucose 207 H Hemoglobin A1c Lactic Acid Calcium Total Bilirubin Ammonia Triglycerides Cholesterol LDL Cholesterol Direct HDL Cholesterol Salicylates Acetaminophen 01/01/18 01/01/18 01/02/18 18:13 21:15 04:55 WBC 12.9 H RBC 5.54 H Hgb 16.5 H Hct 47.5 H MCHC 35 H RDW 12.8 L Lymph % (Auto) [place] # Seg Neutrophils % 74.6 H Seg Neuts % (Manual) Lymphocytes % (Manual) Seg Neutrophils # 9.6 H Seg Neutrophils # Man Lymphocytes # (Manual) Monocytes # (Manual) APTT Sodium Potassium Chloride Carbon Dioxide BUN Creatinine Glucose POC Glucose 181 H 158 H Hemoglobin A1c Lactic Acid Calcium Total Bilirubin Ammonia Triglycerides Cholesterol LDL Cholesterol Direct HDL Cholesterol Salicylates Acetaminophen 01/02/18 01/02/18 01/02/18 04:55 08:06 12:53 WBC RBC Hgb Hct MCHC RDW Lymph % (Auto) [place] # Seg Neutrophils % Seg Neuts % (Manual) Lymphocytes % (Manual) Seg Neutrophils # Seg Neutrophils # Man Lymphocytes # (Manual) Monocytes # (Manual) APTT Sodium 135 L Potassium 3.3 L Chloride 97.0 L Carbon Dioxide BUN Creatinine 0.6 L Glucose 139 H POC Glucose 121 H 180 H Hemoglobin A1c Lactic Acid Calcium Total Bilirubin Ammonia Triglycerides Cholesterol LDL Cholesterol Direct HDL Cholesterol Salicylates Acetaminophen 01/02/18 01/02/18 01/03/18 17:05 21:31 04:55 WBC 12.1 H RBC 5.83 H Hgb 17.3 H Hct 50.5 H MCHC RDW 13.0 L Lymph % (Auto) [place] # Seg Neutrophils % Seg Neuts % (Manual) Lymphocytes % (Manual) Seg Neutrophils # Seg Neutrophils # Man Lymphocytes # (Manual) Monocytes # (Manual) APTT Sodium Potassium Chloride Carbon Dioxide BUN Creatinine Glucose POC Glucose 211 H 185 H Hemoglobin A1c Lactic Acid Calcium Total Bilirubin Ammonia Triglycerides Cholesterol LDL Cholesterol Direct HDL Cholesterol Salicylates Acetaminophen 01/03/18 01/03/18 01/03/18 04:55 07:33 10:02 WBC 12.9 H RBC 5.78 H Hgb 17.2 H Hct 49.7 H MCHC 35 H RDW 12.7 L Lymph % (Auto) 9.0 L [place] # Seg Neutrophils % 85.7 H Seg Neuts % (Manual) Lymphocytes % (Manual) Seg Neutrophils # 11.1 H Seg Neutrophils # Man Lymphocytes # (Manual) Monocytes # (Manual) APTT Sodium 133 L Potassium Chloride 96.6 L Carbon Dioxide BUN Creatinine 0.5 L Glucose 211 H POC Glucose 197 H Hemoglobin A1c Lactic Acid Calcium Total Bilirubin Ammonia Triglycerides Cholesterol LDL Cholesterol Direct HDL Cholesterol Salicylates Acetaminophen 01/03/18 01/03/18 01/03/18 10:02 11:11 16:22 WBC RBC Hgb Hct MCHC RDW Lymph % (Auto) [place] # Seg Neutrophils % Seg Neuts % (Manual) Lymphocytes % (Manual) Seg Neutrophils # Seg Neutrophils # Man Lymphocytes # (Manual) Monocytes # (Manual) APTT Sodium 131 L Potassium 3.5 L Chloride 93.4 L Carbon Dioxide 21 L BUN Creatinine 0.6 L Glucose 274 H POC Glucose 233 H 153 H Hemoglobin A1c Lactic Acid Calcium Total Bilirubin Ammonia Triglycerides Cholesterol LDL Cholesterol Direct HDL Cholesterol Salicylates Acetaminophen 01/03/18 01/04/18 01/04/18 21:16 07:29 07:29 WBC 14.2 H RBC 5.61 H Hgb 16.8 H Hct 47.8 H MCHC 35 H RDW 12.9 L Lymph % (Auto) [place] # Seg Neutrophils % Seg Neuts % (Manual) Lymphocytes % (Manual) Seg Neutrophils # Seg Neutrophils # Man Lymphocytes # (Manual) Monocytes # (Manual) APTT Sodium 129 L Potassium Chloride 92.8 L Carbon Dioxide 19 L BUN Creatinine 0.4 L Glucose 197 H POC Glucose 145 H Hemoglobin A1c Lactic Acid Calcium Total Bilirubin Ammonia Triglycerides Cholesterol LDL Cholesterol Direct HDL Cholesterol Salicylates Acetaminophen 01/04/18 01/04/18 01/04/18 07:40 11:23 16:26 WBC RBC Hgb Hct MCHC RDW Lymph % (Auto) [place] # Seg Neutrophils % Seg Neuts % (Manual) Lymphocytes % (Manual) Seg Neutrophils # Seg Neutrophils # Man Lymphocytes # (Manual) Monocytes # (Manual) APTT Sodium Potassium Chloride Carbon Dioxide BUN Creatinine Glucose POC Glucose 166 H 164 H 214 H Hemoglobin A1c Lactic Acid Calcium Total Bilirubin Ammonia Triglycerides Cholesterol LDL Cholesterol Direct HDL Cholesterol Salicylates Acetaminophen 01/04/18 01/05/18 01/05/18 21:33 04:14 04:14 WBC 15.5 H RBC 5.09 H Hgb 15.3 H Hct MCHC 35 H RDW 13.0 L Lymph % (Auto) [place] # Seg Neutrophils % Seg Neuts % (Manual) Lymphocytes % (Manual) Seg Neutrophils # Seg Neutrophils # Man Lymphocytes # (Manual) Monocytes # (Manual) APTT Sodium 132 L Potassium Chloride 95.7 L Carbon Dioxide 20 L BUN Creatinine 0.6 L Glucose 221 H POC Glucose 180 H Hemoglobin A1c Lactic Acid Calcium Total Bilirubin Ammonia Triglycerides Cholesterol LDL Cholesterol Direct HDL Cholesterol Salicylates Acetaminophen 01/05/18 01/05/18 01/05/18 07:16 15:22 16:40 WBC RBC Hgb Hct MCHC RDW Lymph % (Auto) [place] # Seg Neutrophils % Seg Neuts % (Manual) Lymphocytes % (Manual) Seg Neutrophils # Seg Neutrophils # Man Lymphocytes # (Manual) Monocytes # (Manual) APTT Sodium Potassium Chloride Carbon Dioxide BUN Creatinine Glucose POC Glucose 176 H 219 H 204 H Hemoglobin A1c Lactic Acid Calcium Total Bilirubin Ammonia Triglycerides Cholesterol LDL Cholesterol Direct HDL Cholesterol Salicylates Acetaminophen
--- NOTE | 2018-01-05 18:11 | Progress Note ---
Subjective Date of service: 01/05/18 Interval history: at bedside all measures to reduce ICP are being put in place elevate head of bed , increase PaO2 to 100 %, BP adjusted, decadron given electrolytes reviewed, do not suction or check pain response b/c increases ICP, respirations are OK and evrything stabilized to facilitate therapy- still will need n/surg Objective - Vital Sign Vital Signs - 12hr 01/05/18 01/05/18 01/05/18 10:26 14:57 15:00 Temperature 98.2 F Pulse Rate 133 H Respiratory 22 Rate Blood Pressure 131/69 80/49 O2 Sat by Pulse 87 97 Oximetry 01/05/18 15:01 Temperature 98.2 F Pulse Rate Respiratory 22 Rate Blood Pressure 96/61 O2 Sat by Pulse 92 Oximetry - Laboratory Findings CBC and BMP: 01/05/18 04:14 01/05/18 04:14 Abnormal Lab Findings: Abnormal Labs 12/29/17 12/29/17 12/29/17 17:11 17:14 17:14 WBC 23.9 H RBC 5.47 H Hgb 17.2 H Hct 47.6 H MCHC 36 H RDW 12.8 L Lymph % (Auto) [place] # Seg Neutrophils % Seg Neuts % (Manual) Lymphocytes % (Manual) Seg Neutrophils # Seg Neutrophils # Man 16.7 H Lymphocytes # (Manual) 5.7 H Monocytes # (Manual) 1.2 H APTT Sodium Potassium Chloride Carbon Dioxide BUN Creatinine Glucose POC Glucose 312 H Hemoglobin A1c Lactic Acid 8.50 H* Calcium Total Bilirubin Ammonia Triglycerides Cholesterol LDL Cholesterol Direct HDL Cholesterol Salicylates Acetaminophen 12/29/17 12/29/17 12/29/17 17:14 17:14 17:14 WBC RBC Hgb Hct MCHC RDW Lymph % (Auto) [place] # Seg Neutrophils % Seg Neuts % (Manual) Lymphocytes % (Manual) Seg Neutrophils # Seg Neutrophils # Man Lymphocytes # (Manual) Monocytes # (Manual) APTT 20.0 L Sodium 134 L Potassium 3.1 L Chloride 92.7 L Carbon Dioxide 14 L BUN Creatinine Glucose 384 H POC Glucose Hemoglobin A1c Lactic Acid Calcium Total Bilirubin 1.40 H Ammonia 21.0 L Triglycerides Cholesterol LDL Cholesterol Direct HDL Cholesterol Salicylates Acetaminophen 12/29/17 12/29/17 12/29/17 17:14 17:14 18:01 WBC RBC Hgb Hct MCHC RDW Lymph % (Auto) [place] # Seg Neutrophils % Seg Neuts % (Manual) Lymphocytes % (Manual) Seg Neutrophils # Seg Neutrophils # Man Lymphocytes # (Manual) Monocytes # (Manual) APTT Sodium Potassium Chloride Carbon Dioxide BUN Creatinine Glucose POC Glucose Hemoglobin A1c Lactic Acid 6.10 H* Calcium Total Bilirubin Ammonia Triglycerides Cholesterol LDL Cholesterol Direct HDL Cholesterol Salicylates < 0.3 L Acetaminophen < 5.0 L 12/29/17 12/29/17 12/30/17 Unknown Unknown 06:01 WBC 25.0 H RBC 5.68 H Hgb 16.7 H Hct 50.0 H MCHC RDW Lymph % (Auto) [place] # Seg Neutrophils % Seg Neuts % (Manual) 92.0 H Lymphocytes % (Manual) 3.0 L Seg Neutrophils # Seg Neutrophils # Man 23.0 H Lymphocytes # (Manual) 0.8 L Monocytes # (Manual) APTT Sodium Potassium Chloride Carbon Dioxide BUN Creatinine Glucose POC Glucose Hemoglobin A1c 12.6 H Lactic Acid Calcium Total Bilirubin Ammonia Triglycerides 188 H Cholesterol 254 H LDL Cholesterol Direct 176 H HDL Cholesterol 70 H Salicylates Acetaminophen 12/30/17 12/30/17 12/30/17 06:01 07:26 08:38 WBC RBC Hgb Hct MCHC RDW Lymph % (Auto) [place] # Seg Neutrophils % Seg Neuts % (Manual) Lymphocytes % (Manual) Seg Neutrophils # Seg Neutrophils # Man Lymphocytes # (Manual) Monocytes # (Manual) APTT Sodium 130 L Potassium Chloride 91.0 L Carbon Dioxide 18 L BUN Creatinine Glucose 394 H POC Glucose 317 H Hemoglobin A1c Lactic Acid 2.70 H* Calcium Total Bilirubin Ammonia Triglycerides Cholesterol LDL Cholesterol Direct HDL Cholesterol Salicylates Acetaminophen 12/30/17 12/30/17 12/30/17 09:18 10:34 11:00 WBC RBC Hgb Hct MCHC RDW Lymph % (Auto) [place] # Seg Neutrophils % Seg Neuts % (Manual) Lymphocytes % (Manual) Seg Neutrophils # Seg Neutrophils # Man Lymphocytes # (Manual) Monocytes # (Manual) APTT Sodium 130 L 131 L Potassium 5.2 H 5.1 H Chloride 92.4 L 92.2 L Carbon Dioxide 18 L 18 L BUN Creatinine Glucose 336 H 327 H POC Glucose Hemoglobin A1c Lactic Acid 2.10 H* Calcium Total Bilirubin Ammonia Triglycerides Cholesterol LDL Cholesterol Direct HDL Cholesterol Salicylates Acetaminophen 12/30/17 12/30/17 12/30/17 11:00 12:35 16:45 WBC RBC Hgb Hct MCHC RDW Lymph % (Auto) [place] # Seg Neutrophils % Seg Neuts % (Manual) Lymphocytes % (Manual) Seg Neutrophils # Seg Neutrophils # Man Lymphocytes # (Manual) Monocytes # (Manual) APTT Sodium 134 L Potassium 3.5 L D Chloride Carbon Dioxide 17 L BUN Creatinine Glucose 228 H POC Glucose 226 H 178 H Hemoglobin A1c Lactic Acid Calcium Total Bilirubin Ammonia Triglycerides Cholesterol LDL Cholesterol Direct HDL Cholesterol Salicylates Acetaminophen 12/30/17 12/30/17 12/30/17 18:00 19:57 23:11 WBC RBC Hgb Hct MCHC RDW Lymph % (Auto) [place] # Seg Neutrophils % Seg Neuts % (Manual) Lymphocytes % (Manual) Seg Neutrophils # Seg Neutrophils # Man Lymphocytes # (Manual) Monocytes # (Manual) APTT Sodium 132 L Potassium Chloride Carbon Dioxide 18 L BUN Creatinine 0.6 L Glucose 186 H POC Glucose 160 H 280 H Hemoglobin A1c Lactic Acid Calcium 8.0 L Total Bilirubin Ammonia Triglycerides Cholesterol LDL Cholesterol Direct HDL Cholesterol Salicylates Acetaminophen 12/31/17 12/31/17 12/31/17 00:44 05:10 08:11 WBC 15.5 H RBC Hgb Hct MCHC RDW 13.1 L Lymph % (Auto) 10.8 L [place] # 0.9 H Seg Neutrophils % 83.4 H Seg Neuts % (Manual) Lymphocytes % (Manual) Seg Neutrophils # 12.9 H Seg Neutrophils # Man Lymphocytes # (Manual) Monocytes # (Manual) APTT Sodium 133 L Potassium Chloride Carbon Dioxide 20 L BUN Creatinine 0.6 L Glucose 247 H POC Glucose 186 H Hemoglobin A1c Lactic Acid Calcium 8.0 L Total Bilirubin Ammonia Triglycerides Cholesterol LDL Cholesterol Direct HDL Cholesterol Salicylates Acetaminophen 12/31/17 12/31/17 12/31/17 08:46 10:32 16:20 WBC RBC Hgb Hct MCHC RDW Lymph % (Auto) [place] # Seg Neutrophils % Seg Neuts % (Manual) Lymphocytes % (Manual) Seg Neutrophils # Seg Neutrophils # Man Lymphocytes # (Manual) Monocytes # (Manual) APTT Sodium 134 L Potassium Chloride Carbon Dioxide 19 L BUN Creatinine 0.6 L Glucose 205 H POC Glucose 186 H 273 H Hemoglobin A1c Lactic Acid Calcium 8.0 L Total Bilirubin Ammonia Triglycerides Cholesterol LDL Cholesterol Direct HDL Cholesterol Salicylates Acetaminophen 12/31/17 01/01/18 01/01/18 21:55 07:24 10:16 WBC RBC Hgb Hct MCHC RDW Lymph % (Auto) [place] # Seg Neutrophils % Seg Neuts % (Manual) Lymphocytes % (Manual) Seg Neutrophils # Seg Neutrophils # Man Lymphocytes # (Manual) Monocytes # (Manual) APTT Sodium Potassium Chloride Carbon Dioxide BUN Creatinine Glucose POC Glucose 207 H 172 H 210 H Hemoglobin A1c Lactic Acid Calcium Total Bilirubin Ammonia Triglycerides Cholesterol LDL Cholesterol Direct HDL Cholesterol Salicylates Acetaminophen 01/01/18 01/01/18 01/01/18 11:48 14:32 14:32 WBC 15.1 H RBC 5.24 H Hgb 15.9 H Hct MCHC 36 H RDW 12.6 L Lymph % (Auto) 8.4 L [place] # Seg Neutrophils % 85.8 H Seg Neuts % (Manual) Lymphocytes % (Manual) Seg Neutrophils # 12.9 H Seg Neutrophils # Man Lymphocytes # (Manual) Monocytes # (Manual) APTT Sodium 130 L Potassium 3.3 L Chloride 94.1 L Carbon Dioxide BUN 8 L Creatinine 0.5 L Glucose 184 H POC Glucose 207 H Hemoglobin A1c Lactic Acid Calcium Total Bilirubin Ammonia Triglycerides Cholesterol LDL Cholesterol Direct HDL Cholesterol Salicylates Acetaminophen 01/01/18 01/01/18 01/02/18 18:13 21:15 04:55 WBC 12.9 H RBC 5.54 H Hgb 16.5 H Hct 47.5 H MCHC 35 H RDW 12.8 L Lymph % (Auto) [place] # Seg Neutrophils % 74.6 H Seg Neuts % (Manual) Lymphocytes % (Manual) Seg Neutrophils # 9.6 H Seg Neutrophils # Man Lymphocytes # (Manual) Monocytes # (Manual) APTT Sodium Potassium Chloride Carbon Dioxide BUN Creatinine Glucose POC Glucose 181 H 158 H Hemoglobin A1c Lactic Acid Calcium Total Bilirubin Ammonia Triglycerides Cholesterol LDL Cholesterol Direct HDL Cholesterol Salicylates Acetaminophen 01/02/18 01/02/18 01/02/18 04:55 08:06 12:53 WBC RBC Hgb Hct MCHC RDW Lymph % (Auto) [place] # Seg Neutrophils % Seg Neuts % (Manual) Lymphocytes % (Manual) Seg Neutrophils # Seg Neutrophils # Man Lymphocytes # (Manual) Monocytes # (Manual) APTT Sodium 135 L Potassium 3.3 L Chloride 97.0 L Carbon Dioxide BUN Creatinine 0.6 L Glucose 139 H POC Glucose 121 H 180 H Hemoglobin A1c Lactic Acid Calcium Total Bilirubin Ammonia Triglycerides Cholesterol LDL Cholesterol Direct HDL Cholesterol Salicylates Acetaminophen 01/02/18 01/02/18 01/03/18 17:05 21:31 04:55 WBC 12.1 H RBC 5.83 H Hgb 17.3 H Hct 50.5 H MCHC RDW 13.0 L Lymph % (Auto) [place] # Seg Neutrophils % Seg Neuts % (Manual) Lymphocytes % (Manual) Seg Neutrophils # Seg Neutrophils # Man Lymphocytes # (Manual) Monocytes # (Manual) APTT Sodium Potassium Chloride Carbon Dioxide BUN Creatinine Glucose POC Glucose 211 H 185 H Hemoglobin A1c Lactic Acid Calcium Total Bilirubin Ammonia Triglycerides Cholesterol LDL Cholesterol Direct HDL Cholesterol Salicylates Acetaminophen 01/03/18 01/03/18 01/03/18 04:55 07:33 10:02 WBC 12.9 H RBC 5.78 H Hgb 17.2 H Hct 49.7 H MCHC 35 H RDW 12.7 L Lymph % (Auto) 9.0 L [place] # Seg Neutrophils % 85.7 H Seg Neuts % (Manual) Lymphocytes % (Manual) Seg Neutrophils # 11.1 H Seg Neutrophils # Man Lymphocytes # (Manual) Monocytes # (Manual) APTT Sodium 133 L Potassium Chloride 96.6 L Carbon Dioxide BUN Creatinine 0.5 L Glucose 211 H POC Glucose 197 H Hemoglobin A1c Lactic Acid Calcium Total Bilirubin Ammonia Triglycerides Cholesterol LDL Cholesterol Direct HDL Cholesterol Salicylates Acetaminophen 01/03/18 01/03/18 01/03/18 10:02 11:11 16:22 WBC RBC Hgb Hct MCHC RDW Lymph % (Auto) [place] # Seg Neutrophils % Seg Neuts % (Manual) Lymphocytes % (Manual) Seg Neutrophils # Seg Neutrophils # Man Lymphocytes # (Manual) Monocytes # (Manual) APTT Sodium 131 L Potassium 3.5 L Chloride 93.4 L Carbon Dioxide 21 L BUN Creatinine 0.6 L Glucose 274 H POC Glucose 233 H 153 H Hemoglobin A1c Lactic Acid Calcium Total Bilirubin Ammonia Triglycerides Cholesterol LDL Cholesterol Direct HDL Cholesterol Salicylates Acetaminophen 01/03/18 01/04/18 01/04/18 21:16 07:29 07:29 WBC 14.2 H RBC 5.61 H Hgb 16.8 H Hct 47.8 H MCHC 35 H RDW 12.9 L Lymph % (Auto) [place] # Seg Neutrophils % Seg Neuts % (Manual) Lymphocytes % (Manual) Seg Neutrophils # Seg Neutrophils # Man Lymphocytes # (Manual) Monocytes # (Manual) APTT Sodium 129 L Potassium Chloride 92.8 L Carbon Dioxide 19 L BUN Creatinine 0.4 L Glucose 197 H POC Glucose 145 H Hemoglobin A1c Lactic Acid Calcium Total Bilirubin Ammonia Triglycerides Cholesterol LDL Cholesterol Direct HDL Cholesterol Salicylates Acetaminophen 01/04/18 01/04/18 01/04/18 07:40 11:23 16:26 WBC RBC Hgb Hct MCHC RDW Lymph % (Auto) [place] # Seg Neutrophils % Seg Neuts % (Manual) Lymphocytes % (Manual) Seg Neutrophils # Seg Neutrophils # Man Lymphocytes # (Manual) Monocytes # (Manual) APTT Sodium Potassium Chloride Carbon Dioxide BUN Creatinine Glucose POC Glucose 166 H 164 H 214 H Hemoglobin A1c Lactic Acid Calcium Total Bilirubin Ammonia Triglycerides Cholesterol LDL Cholesterol Direct HDL Cholesterol Salicylates Acetaminophen 01/04/18 01/05/18 01/05/18 21:33 04:14 04:14 WBC 15.5 H RBC 5.09 H Hgb 15.3 H Hct MCHC 35 H RDW 13.0 L Lymph % (Auto) [place] # Seg Neutrophils % Seg Neuts % (Manual) Lymphocytes % (Manual) Seg Neutrophils # Seg Neutrophils # Man Lymphocytes # (Manual) Monocytes # (Manual) APTT Sodium 132 L Potassium Chloride 95.7 L Carbon Dioxide 20 L BUN Creatinine 0.6 L Glucose 221 H POC Glucose 180 H Hemoglobin A1c Lactic Acid Calcium Total Bilirubin Ammonia Triglycerides Cholesterol LDL Cholesterol Direct HDL Cholesterol Salicylates Acetaminophen 01/05/18 01/05/18 01/05/18 07:16 15:22 16:40 WBC RBC Hgb Hct MCHC RDW Lymph % (Auto) [place] # Seg Neutrophils % Seg Neuts % (Manual) Lymphocytes % (Manual) Seg Neutrophils # Seg Neutrophils # Man Lymphocytes # (Manual) Monocytes # (Manual) APTT Sodium Potassium Chloride Carbon Dioxide BUN Creatinine Glucose POC Glucose 176 H 219 H 204 H Hemoglobin A1c Lactic Acid Calcium Total Bilirubin Ammonia Triglycerides Cholesterol LDL Cholesterol Direct HDL Cholesterol Salicylates Acetaminophen
[2018-01-05 18:16] VITALS: BP 88/57
--- NOTE | 2018-01-05 18:19 | Progress Note ---
Subjective Date of service: 01/05/18 Interval history: EMS here at the room provided verbal intructions for transfer stable VS and stable neuro at time of hand off... sedation likely effect of residual Thorazine and the ativan plus effect of other factors Dr. Raygoza and Iat bedside discussing case Objective - Vital Sign Vital Signs - 12hr 01/05/18 01/05/18 01/05/18 10:26 14:57 15:00 Temperature 98.2 F Pulse Rate 133 H Respiratory 22 Rate Blood Pressure 131/69 80/49 O2 Sat by Pulse 87 97 Oximetry 01/05/18 01/05/18 15:01 17:17 Temperature 98.2 F Pulse Rate Respiratory 22 Rate Blood Pressure 96/61 88/57 O2 Sat by Pulse 92 Oximetry - Laboratory Findings CBC and BMP: 01/05/18 04:14 01/05/18 04:14 Abnormal Lab Findings: Abnormal Labs 12/29/17 12/29/17 12/29/17 17:11 17:14 17:14 WBC 23.9 H RBC 5.47 H Hgb 17.2 H Hct 47.6 H MCHC 36 H RDW 12.8 L Lymph % (Auto) [place] # Seg Neutrophils % Seg Neuts % (Manual) Lymphocytes % (Manual) Seg Neutrophils # Seg Neutrophils # Man 16.7 H Lymphocytes # (Manual) 5.7 H Monocytes # (Manual) 1.2 H APTT Sodium Potassium Chloride Carbon Dioxide BUN Creatinine Glucose POC Glucose 312 H Hemoglobin A1c Lactic Acid 8.50 H* Calcium Total Bilirubin Ammonia Triglycerides Cholesterol LDL Cholesterol Direct HDL Cholesterol Salicylates Acetaminophen 12/29/17 12/29/17 12/29/17 17:14 17:14 17:14 WBC RBC Hgb Hct MCHC RDW Lymph % (Auto) [place] # Seg Neutrophils % Seg Neuts % (Manual) Lymphocytes % (Manual) Seg Neutrophils # Seg Neutrophils # Man Lymphocytes # (Manual) Monocytes # (Manual) APTT 20.0 L Sodium 134 L Potassium 3.1 L Chloride 92.7 L Carbon Dioxide 14 L BUN Creatinine Glucose 384 H POC Glucose Hemoglobin A1c Lactic Acid Calcium Total Bilirubin 1.40 H Ammonia 21.0 L Triglycerides Cholesterol LDL Cholesterol Direct HDL Cholesterol Salicylates Acetaminophen 12/29/17 12/29/17 12/29/17 17:14 17:14 18:01 WBC RBC Hgb Hct MCHC RDW Lymph % (Auto) [place] # Seg Neutrophils % Seg Neuts % (Manual) Lymphocytes % (Manual) Seg Neutrophils # Seg Neutrophils # Man Lymphocytes # (Manual) Monocytes # (Manual) APTT Sodium Potassium Chloride Carbon Dioxide BUN Creatinine Glucose POC Glucose Hemoglobin A1c Lactic Acid 6.10 H* Calcium Total Bilirubin Ammonia Triglycerides Cholesterol LDL Cholesterol Direct HDL Cholesterol Salicylates < 0.3 L Acetaminophen < 5.0 L 12/29/17 12/29/17 12/30/17 Unknown Unknown 06:01 WBC 25.0 H RBC 5.68 H Hgb 16.7 H Hct 50.0 H MCHC RDW Lymph % (Auto) [place] # Seg Neutrophils % Seg Neuts % (Manual) 92.0 H Lymphocytes % (Manual) 3.0 L Seg Neutrophils # Seg Neutrophils # Man 23.0 H Lymphocytes # (Manual) 0.8 L Monocytes # (Manual) APTT Sodium Potassium Chloride Carbon Dioxide BUN Creatinine Glucose POC Glucose Hemoglobin A1c 12.6 H Lactic Acid Calcium Total Bilirubin Ammonia Triglycerides 188 H Cholesterol 254 H LDL Cholesterol Direct 176 H HDL Cholesterol 70 H Salicylates Acetaminophen 12/30/17 12/30/17 12/30/17 06:01 07:26 08:38 WBC RBC Hgb Hct MCHC RDW Lymph % (Auto) [place] # Seg Neutrophils % Seg Neuts % (Manual) Lymphocytes % (Manual) Seg Neutrophils # Seg Neutrophils # Man Lymphocytes # (Manual) Monocytes # (Manual) APTT Sodium 130 L Potassium Chloride 91.0 L Carbon Dioxide 18 L BUN Creatinine Glucose 394 H POC Glucose 317 H Hemoglobin A1c Lactic Acid 2.70 H* Calcium Total Bilirubin Ammonia Triglycerides Cholesterol LDL Cholesterol Direct HDL Cholesterol Salicylates Acetaminophen 12/30/17 12/30/17 12/30/17 09:18 10:34 11:00 WBC RBC Hgb Hct MCHC RDW Lymph % (Auto) [place] # Seg Neutrophils % Seg Neuts % (Manual) Lymphocytes % (Manual) Seg Neutrophils # Seg Neutrophils # Man Lymphocytes # (Manual) Monocytes # (Manual) APTT Sodium 130 L 131 L Potassium 5.2 H 5.1 H Chloride 92.4 L 92.2 L Carbon Dioxide 18 L 18 L BUN Creatinine Glucose 336 H 327 H POC Glucose Hemoglobin A1c Lactic Acid 2.10 H* Calcium Total Bilirubin Ammonia Triglycerides Cholesterol LDL Cholesterol Direct HDL Cholesterol Salicylates Acetaminophen 12/30/17 12/30/17 12/30/17 11:00 12:35 16:45 WBC RBC Hgb Hct MCHC RDW Lymph % (Auto) [place] # Seg Neutrophils % Seg Neuts % (Manual) Lymphocytes % (Manual) Seg Neutrophils # Seg Neutrophils # Man Lymphocytes # (Manual) Monocytes # (Manual) APTT Sodium 134 L Potassium 3.5 L D Chloride Carbon Dioxide 17 L BUN Creatinine Glucose 228 H POC Glucose 226 H 178 H Hemoglobin A1c Lactic Acid Calcium Total Bilirubin Ammonia Triglycerides Cholesterol LDL Cholesterol Direct HDL Cholesterol Salicylates Acetaminophen 12/30/17 12/30/17 12/30/17 18:00 19:57 23:11 WBC RBC Hgb Hct MCHC RDW Lymph % (Auto) [place] # Seg Neutrophils % Seg Neuts % (Manual) Lymphocytes % (Manual) Seg Neutrophils # Seg Neutrophils # Man Lymphocytes # (Manual) Monocytes # (Manual) APTT Sodium 132 L Potassium Chloride Carbon Dioxide 18 L BUN Creatinine 0.6 L Glucose 186 H POC Glucose 160 H 280 H Hemoglobin A1c Lactic Acid Calcium 8.0 L Total Bilirubin Ammonia Triglycerides Cholesterol LDL Cholesterol Direct HDL Cholesterol Salicylates Acetaminophen 12/31/17 12/31/17 12/31/17 00:44 05:10 08:11 WBC 15.5 H RBC Hgb Hct MCHC RDW 13.1 L Lymph % (Auto) 10.8 L [place] # 0.9 H Seg Neutrophils % 83.4 H Seg Neuts % (Manual) Lymphocytes % (Manual) Seg Neutrophils # 12.9 H Seg Neutrophils # Man Lymphocytes # (Manual) Monocytes # (Manual) APTT Sodium 133 L Potassium Chloride Carbon Dioxide 20 L BUN Creatinine 0.6 L Glucose 247 H POC Glucose 186 H Hemoglobin A1c Lactic Acid Calcium 8.0 L Total Bilirubin Ammonia Triglycerides Cholesterol LDL Cholesterol Direct HDL Cholesterol Salicylates Acetaminophen 12/31/17 12/31/17 12/31/17 08:46 10:32 16:20 WBC RBC Hgb Hct MCHC RDW Lymph % (Auto) [place] # Seg Neutrophils % Seg Neuts % (Manual) Lymphocytes % (Manual) Seg Neutrophils # Seg Neutrophils # Man Lymphocytes # (Manual) Monocytes # (Manual) APTT Sodium 134 L Potassium Chloride Carbon Dioxide 19 L BUN Creatinine 0.6 L Glucose 205 H POC Glucose 186 H 273 H Hemoglobin A1c Lactic Acid Calcium 8.0 L Total Bilirubin Ammonia Triglycerides Cholesterol LDL Cholesterol Direct HDL Cholesterol Salicylates Acetaminophen 12/31/17 01/01/18 01/01/18 21:55 07:24 10:16 WBC RBC Hgb Hct MCHC RDW Lymph % (Auto) [place] # Seg Neutrophils % Seg Neuts % (Manual) Lymphocytes % (Manual) Seg Neutrophils # Seg Neutrophils # Man Lymphocytes # (Manual) Monocytes # (Manual) APTT Sodium Potassium Chloride Carbon Dioxide BUN Creatinine Glucose POC Glucose 207 H 172 H 210 H Hemoglobin A1c Lactic Acid Calcium Total Bilirubin Ammonia Triglycerides Cholesterol LDL Cholesterol Direct HDL Cholesterol Salicylates Acetaminophen 01/01/18 01/01/18 01/01/18 11:48 14:32 14:32 WBC 15.1 H RBC 5.24 H Hgb 15.9 H Hct MCHC 36 H RDW 12.6 L Lymph % (Auto) 8.4 L [place] # Seg Neutrophils % 85.8 H Seg Neuts % (Manual) Lymphocytes % (Manual) Seg Neutrophils # 12.9 H Seg Neutrophils # Man Lymphocytes # (Manual) Monocytes # (Manual) APTT Sodium 130 L Potassium 3.3 L Chloride 94.1 L Carbon Dioxide BUN 8 L Creatinine 0.5 L Glucose 184 H POC Glucose 207 H Hemoglobin A1c Lactic Acid Calcium Total Bilirubin Ammonia Triglycerides Cholesterol LDL Cholesterol Direct HDL Cholesterol Salicylates Acetaminophen 01/01/18 01/01/18 01/02/18 18:13 21:15 04:55 WBC 12.9 H RBC 5.54 H Hgb 16.5 H Hct 47.5 H MCHC 35 H RDW 12.8 L Lymph % (Auto) [place] # Seg Neutrophils % 74.6 H Seg Neuts % (Manual) Lymphocytes % (Manual) Seg Neutrophils # 9.6 H Seg Neutrophils # Man Lymphocytes # (Manual) Monocytes # (Manual) APTT Sodium Potassium Chloride Carbon Dioxide BUN Creatinine Glucose POC Glucose 181 H 158 H Hemoglobin A1c Lactic Acid Calcium Total Bilirubin Ammonia Triglycerides Cholesterol LDL Cholesterol Direct HDL Cholesterol Salicylates Acetaminophen 01/02/18 01/02/18 01/02/18 04:55 08:06 12:53 WBC RBC Hgb Hct MCHC RDW Lymph % (Auto) [place] # Seg Neutrophils % Seg Neuts % (Manual) Lymphocytes % (Manual) Seg Neutrophils # Seg Neutrophils # Man Lymphocytes # (Manual) Monocytes # (Manual) APTT Sodium 135 L Potassium 3.3 L Chloride 97.0 L Carbon Dioxide BUN Creatinine 0.6 L Glucose 139 H POC Glucose 121 H 180 H Hemoglobin A1c Lactic Acid Calcium Total Bilirubin Ammonia Triglycerides Cholesterol LDL Cholesterol Direct HDL Cholesterol Salicylates Acetaminophen 10/02/18 10/02/18 10/03/18 17:05 21:31 04:55 WBC 12.1 H RBC 5.83 H Hgb 17.3 H Hct 50.5 H MCHC RDW 13.0 L Lymph % (Auto) [place] # Seg Neutrophils % Seg Neuts % (Manual) Lymphocytes % (Manual) Seg Neutrophils # Seg Neutrophils # Man Lymphocytes # (Manual) Monocytes # (Manual) APTT Sodium Potassium Chloride Carbon Dioxide BUN Creatinine Glucose POC Glucose 211 H 185 H Hemoglobin A1c Lactic Acid Calcium Total Bilirubin Ammonia Triglycerides Cholesterol LDL Cholesterol Direct HDL Cholesterol Salicylates Acetaminophen 01/03/18 01/03/18 01/03/18 04:55 07:33 10:02 WBC 12.9 H RBC 5.78 H Hgb 17.2 H Hct 49.7 H MCHC 35 H RDW 12.7 L Lymph % (Auto) 9.0 L [place] # Seg Neutrophils % 85.7 H Seg Neuts % (Manual) Lymphocytes % (Manual) Seg Neutrophils # 11.1 H Seg Neutrophils # Man Lymphocytes # (Manual) Monocytes # (Manual) APTT Sodium 133 L Potassium Chloride 96.6 L Carbon Dioxide BUN Creatinine 0.5 L Glucose 211 H POC Glucose 197 H Hemoglobin A1c Lactic Acid Calcium Total Bilirubin Ammonia Triglycerides Cholesterol LDL Cholesterol Direct HDL Cholesterol Salicylates Acetaminophen 01/03/18 01/03/18 01/03/18 10:02 11:11 16:22 WBC RBC Hgb Hct MCHC RDW Lymph % (Auto) [place] # Seg Neutrophils % Seg Neuts % (Manual) Lymphocytes % (Manual) Seg Neutrophils # Seg Neutrophils # Man Lymphocytes # (Manual) Monocytes # (Manual) APTT Sodium 131 L Potassium 3.5 L Chloride 93.4 L Carbon Dioxide 21 L BUN Creatinine 0.6 L Glucose 274 H POC Glucose 233 H 153 H Hemoglobin A1c Lactic Acid Calcium Total Bilirubin Ammonia Triglycerides Cholesterol LDL Cholesterol Direct HDL Cholesterol Salicylates Acetaminophen 01/03/18 01/04/18 01/04/18 21:16 07:29 07:29 WBC 14.2 H RBC 5.61 H Hgb 16.8 H Hct 47.8 H MCHC 35 H RDW 12.9 L Lymph % (Auto) [place] # Seg Neutrophils % Seg Neuts % (Manual) Lymphocytes % (Manual) Seg Neutrophils # Seg Neutrophils # Man Lymphocytes # (Manual) Monocytes # (Manual) APTT Sodium 129 L Potassium Chloride 92.8 L Carbon Dioxide 19 L BUN Creatinine 0.4 L Glucose 197 H POC Glucose 145 H Hemoglobin A1c Lactic Acid Calcium Total Bilirubin Ammonia Triglycerides Cholesterol LDL Cholesterol Direct HDL Cholesterol Salicylates Acetaminophen 01/04/18 01/04/18 01/04/18 07:40 11:23 16:26 WBC RBC Hgb Hct MCHC RDW Lymph % (Auto) [place] # Seg Neutrophils % Seg Neuts % (Manual) Lymphocytes % (Manual) Seg Neutrophils # Seg Neutrophils # Man Lymphocytes # (Manual) Monocytes # (Manual) APTT Sodium Potassium Chloride Carbon Dioxide BUN Creatinine Glucose POC Glucose 166 H 164 H 214 H Hemoglobin A1c Lactic Acid Calcium Total Bilirubin Ammonia Triglycerides Cholesterol LDL Cholesterol Direct HDL Cholesterol Salicylates Acetaminophen 01/04/18 01/05/18 01/05/18 21:33 04:14 04:14 WBC 15.5 H RBC 5.09 H Hgb 15.3 H Hct MCHC 35 H RDW 13.0 L Lymph % (Auto) [place] # Seg Neutrophils % Seg Neuts % (Manual) Lymphocytes % (Manual) Seg Neutrophils # Seg Neutrophils # Man Lymphocytes # (Manual) Monocytes # (Manual) APTT Sodium 132 L Potassium Chloride 95.7 L Carbon Dioxide 20 L BUN Creatinine 0.6 L Glucose 221 H POC Glucose 180 H Hemoglobin A1c Lactic Acid Calcium Total Bilirubin Ammonia Triglycerides Cholesterol LDL Cholesterol Direct HDL Cholesterol Salicylates Acetaminophen 01/05/18 01/05/18 01/05/18 07:16 15:22 16:40 WBC RBC Hgb Hct MCHC RDW Lymph % (Auto) [place] # Seg Neutrophils % Seg Neuts % (Manual) Lymphocytes % (Manual) Seg Neutrophils # Seg Neutrophils # Man Lymphocytes # (Manual) Monocytes # (Manual) APTT Sodium Potassium Chloride Carbon Dioxide BUN Creatinine Glucose POC Glucose 176 H 219 H 204 H Hemoglobin A1c Lactic Acid Calcium Total Bilirubin Ammonia Triglycerides Cholesterol LDL Cholesterol Direct HDL Cholesterol Salicylates Acetaminophen
[2018-01-06] MEDS ORDERED: ZESTRIL PO SCH (10:00)
--- NOTE | 2018-01-06 14:13 | Consultation ---
This patient was reassessed neurologically for consult based on changes in condition. At this point, the patient is responding to pain. He moves all extremities. He is quite arousable, but slightly sleepy. He moves his eyes normally. His pupils are equal, round, and reactive to light. Moves all extremities without any problem. Vital signs are stable. He is slightly sleepy however. Speaking with the nurse at the bedside, he is having no focal seizure activity. Motor tone is relatively symmetrical, but he has some slight difficulty arousing. The patient's neck is supple. No seizure activity is noted. IMPRESSION: In reviewing his CT, MRI, he has not been taking any anticoagulation therapy. He has at this point an area of edema in the superior vermis of the cerebellum. 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 This is due to compression of the ventricular system in the upper right mid brain. I am in favor of referring the patient to [facility] at this point. I plan to speak with the neuro hardwood floor installer, Dr. Ford. I would get her on the phone and advised her of features of the examination and transfer is pending at this point. I am not sure how at what point the patient's condition changed because I had a CT scan of the head done on the and this was entirely normal and at this point, there is a change in condition. JOB# [id number] CARLY/MUMTAZ
--- NOTE | 2018-01-06 16:24 | Consultation ---
HISTORY OF PRESENT ILLNESS: This is an interval note on this patient. I have done an extensive review of this patient's CT scan of the brain, which was done initially when he was admitted and I looked at this with Dr. Carrizales. We both agreed that interpretation of the admission CT scan was entirely normal. I carefully reviewed all images in the posterior fossa, so the cisterns are normal, the cerebellar architectures are normal, brainstem structures were entirely normal. This was dictated in a previous note that I had followed on the patient. An MRI scan was ordered on the day of my consult and was just finished today and I have had a chance to go over it. There has been a dramatic change in architecture of the posterior fossa. There is an area of edema in the midline, which does somewhat involve the left cerebellar hemisphere. This has generally the appearance of a mass effect, which due to edema in the roof of the fourth ventricle, but also extending a fairly high up into the brainstem into the vermis. There is some degree of hemorrhage with this, but it primarily has the appearance of ischemic infarct. Given the fact there is blockage or partial obstruction of flow down the ventricular system, there is some dilation of the temporal, occipital, and frontal horns of ventricular system. On rechecking the CT scan of the brain, this clearly does not represent a metastatic lesion or a primary brain tumor that would have been detected on the CT nor was this represents a stroke. Therefore, more likely than not, this is an ischemic infarct with some degree reflow phenomena causing a slight degree of hemorrhage, but primarily an ischemic infarct. Given the fact that there is hydrocephalus developing, the patient needs to be transferred to a neurosurgical facility such as [facility] to address neurosurgical intervention to relieve pressure on the ventricular system in the upper mid brain, I do not think this should be attempted to be medically managed. I spoke with Dr. Raygoza and let him know that I would review over the testing and at this point, he does require some neurosurgical intervention given the interval development of this infarct. I did rereview the CT of the head that was done on the . JOB# [id number] CARLY/MUMTAZ
--- NOTE | 2018-01-07 02:38 | Consultation ---
HISTORY OF PRESENT ILLNESS: A 52-year-old [place] male that was initially seen on 01/01/2018, for evaluation of a syncopal episode with ataxia. Initial evaluation on the patient showed a normal neurological examination with the exception of leg weakness, which was very mild. Remainder of the neurological examination was unremarkable. History suggested that he had syncope with hyperglycemia, possibly related to seizure. He had the new-onset of diabetes mellitus, new-onset of possible seizure. Initial CT scan was reviewed and was normal. 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 As part of the diagnostic workup, a lumbar puncture was considered after the MRI scan of the brain was ordered. On Monday, Dr. Дмитрий Wiggins attempted a lumbar puncture and direct communication with him indicated that the lumbar puncture was attempted, but was a traumatic tap. CSF was not obtained. There was no CSF flow at all. Fluid obtained was related to the traumatic tap, but CSF was not obtained because the LP was unsuccessful. Subsequent notes about the patient are contained in other type notes on this patient. IMPRESSION: Initial diagnostic impression was encephalopathy related to syncope, also related to diabetes, possible infection, and possible seizure. Initial review of the CT scan was normal. Subsequent evaluations are pending. Dr. Wiggins spoke to me at the time I was speak with Dr. Carrizales, will go over all the diagnostic studies. JOB# [id number] CARLY/NTS
== END 2018-01-05 18:35 | disposition short-term general hospital (02) | DRG 637 ==
LOC: ED 16:35 → 3A 23:00 → CC1 12-30 16:34 → 3A 12-31 12:16
PROVIDERS: ADMIT Internal Medicine; ATTEND Internal Medicine
PROC: 009U3ZZ Drainage of Spinal Canal, Percutaneous Approach (ICD-10-PCS; principal; 2018-01-05)
PROC: B01B1ZZ Fluoroscopy of Spinal Cord using Low Osmolar Contrast (ICD-10-PCS; 2018-01-05)
DX: E11.10 Type 2 diabetes mellitus with ketoacidosis without coma (principal); I63.9 Cerebral infarction, unspecified; G93.41 Metabolic encephalopathy; I61.4 Nontraumatic intracerebral hemorrhage in cerebellum; R65.10 Systemic inflammatory response syndrome (SIRS) of non-infectious origin without acute organ dysfunction; E11.65 Type 2 diabetes mellitus with hyperglycemia; M50.322 Other cervical disc degeneration at C5-C6 level; I16.0 Hypertensive urgency; E78.5 Hyperlipidemia, unspecified; F32.9 Major depressive disorder, single episode, unspecified; R29.707 NIHSS score 7; W18.39XA Other fall on same level, initial encounter; Z82.49 Family history of ischemic heart disease and other diseases of the circulatory system; Y93.89 Activity, other specified; Y92.098 Other place in other non-institutional residence as the place of occurrence of the external cause; Y99.8 Other external cause status; Z79.4 Long term (current) use of insulin; Z79.899 Other long term (current) drug therapy
CPT/HCPCS: 36415; 62270; 70450; 70551; 71045; 71275; 72141; 77003; 80048; 80053; 80061; 80307; 80320; 81001; 82140; 82947; 82962; 83036; 83735; 84100; 84160; 84484; 85007; 85025; 85027; 85610; 85730; 86592; 86850; 86900; 86901; 87040; 87116; 89051; 93005; 93010; 94760; 95819; 96365; 96375; A9270-GY; G0480; J0360; J0696; J1100; J1650; J1815; J2060; J2405; J2543; J3370; J3480; J7030; J7040; J7050; Q0161; Q9967